=== PATIENT | female | born 1950 | race African-American/Black ===

== ENCOUNTER 2017-08-18 19:22 | Observation (INO) | payer MEDICARE, MEDICAID ==
--- OUTSIDE RECORDS SUMMARY | 2017-08-18 19:24 | XMS | Clinical Summary ---
:1950 Author Organization [facility] Address [address] [place] [address] Phone Care Team Providers Name Role Phone , Primary Care Provider Unavailable Allergies Not on File Current Medications Not on file Active Problems Not on file Social History Tobacco Use Types Packs/Day Years Used Date Never Assessed Sex Assigned at Date Recorded Not on file Last Filed Vital Signs Not on file Plan of Treatment Not on file Results Not on filefrom Last 3 Months
[2017-08-18 19:49] LABS: #Basophils 0.1 thou/uL (0.0-0.2); #Eosinphils 0.2 thou/uL (0.0-0.7); #Lymphocytes 1.7 thou/uL (1.20-3.40); #Monocytes 0.5 thou/uL (0.11-0.59); #Neutrophils 3.4 thou/uL (1.40-6.50); %Basophils 1.3 % (0.0-1.0); %Eosinophils 3.2 % (0.0-10.0); %Lymphocytes 28.9 % (21.0-51.0); %Monocytes 9.1 % (0.0-10.0); Hematocrit 41.7 % (36.0-47.0); Mean Platelet Volume 6.5 fL (7.4-10.4); Red Blood Cell (RBC) Count 4.61 mill/uL (4.20-5.40); White Blood Cell (WBC) Count 5.9 thou/uL (4.8-10.8)
[2017-08-18 20:11] LABS: ALT (SGPT) 24 U/L (8-55); AST (SGOT) 19 U/L (5-34); Alkaline Phosphatase 85 U/L (40-150); Anion Gap 13 mmol/L (10-20); BUN (Urea Nitrogen) 18 mg/dL (9.8-20.1); Bilirubin, Total 0.2 mg/dL (0.2-1.2); CK (CPK) 159 U/L (29-168); Calc. Creatinine Clearance 0 mL/min (70-130); Carbon Dioxide 25 mmol/L (23-31); Chloride 105 mmol/L (98-107); Estimated GFR-MDRD 84; Globulin 2.5 g/dL (2.4-3.5); Lipase 23 U/L (8-78); Protein, Total 6.2 g/dL (6.0-8.3)
[2017-08-18 20:14] LABS: Troponin I Less than 0.010 ng/mL (< 0.028)
--- NOTE | 2017-08-18 21:05 | RAD ---
PORTABLE AP CHEST X-RAY: 08/18/17 HISTORY: Chest pain for 1.5 hours. COMPARISON: 02/18/17 FINDINGS: The cardiac silhouette and pulmonary vasculature are within normal limits. Prominence of the cardiom ediastinal structures in the superior mediastinum which is probably related to vascular structures. This is stable from the prior study and is also stable when dating back to a study on 07/17/12. The lungs remain clear. There has been no interval change when compared to the prior exam. Mild foca l eventration right hemidiaphragm is again present. IMPRESSION: No acute cardiopulmonary process. POS: [facility]
[2017-08-18] MEDS ORDERED: Ondansetron HCl/PF 4 MG/2 ML Vial IVP PRN (22:35)
[2017-08-18] MEDS ORDERED: Ondansetron ODT 4 MG TAB SL PRN (22:35)
[2017-08-18] MEDS ORDERED: Acetaminophen 325 MG TAB PO PRN (22:35)
[2017-08-18 23:18] LABS: Troponin I Less than 0.010 ng/mL (< 0.028)
[2017-08-18 23:19] VITALS: BMI 36.4
[2017-08-19 02:47] LABS: Troponin I Less than 0.010 ng/mL (< 0.028)
[2017-08-19] MEDS ORDERED: Nitroglycerin 2% Ointment 1 INCH/1 GM Packet TOP SCH (06:00)
[2017-08-19] MEDS ORDERED: Dextrose 50% Abboject 50 ML SYRINGE IVP PRN (07:59)
[2017-08-19] MEDS ORDERED: Insulin Regular 300 UNITS/3 ML VIAL SC PRN ×2 (07:59)
[2017-08-19] MEDS ORDERED: Dextrose 5% in Water 1,000 ML IV PRN (07:59)
[2017-08-19] MEDS ORDERED: traMADol HCl 50 MG TAB PO PRN ×2 (08:00)
[2017-08-19] MEDS ORDERED: tiZANidine HCl 4 MG TAB PO PRN (08:01)
[2017-08-19] MEDS ORDERED: Ondansetron ODT 8 MG TAB PO PRN (08:04)
[2017-08-19] MEDS ORDERED: LINACLOTIDE 145 MCG PO PRN (08:09)
--- NOTE | 2017-08-19 08:52 | HP ---
CHIEF COMPLAINT: Chest pain. HISTORY OF PRESENT ILLNESS: The patient is a 67-year-old female who has substernal pressure, making her very uncomfortable. She would belch and could not get relief. It made her short-winded. When it lasted more than one and a half hours she went to the emergency room for further evaluation. Sh rabia states that she would sense palpitations with her heart as well. She states that this was also as sociated with nausea and vomiting and she did have emesis earlier in the day. She denies coughing. She did have back surgery approximately 3 months ago and continues to have low back pain since that time. She was previously hospitalized in January of this year with similar complaints of chest pain. Nuclear Med stress test was performed and it was negative so the patient was discharged. She does have some acid reflux and this pain she admits does feel better. She had 2 sprays of nitroglycerin and aspirin en route with EMS and did have some relief on arrival to the ER. Definitive evaluation for coronary artery disease is indicated since this is her second hospitalization in less than 7 mo nt for the same complaint. PAST MEDICAL HISTORY: Type 2 diabetes, dyslipidemia, hypertension, chronic low back pain, COPD, mor bid obesity, asthma, irritable bowel syndrome. PAST SURGICAL HISTORY: Includes bilateral cataract replacement, back surgery in April of this year. PSYCHIATRIC HISTORY: Psychiatrically she struggles with depression. SOCIAL HISTORY: She is a former smoker who quit more than 10 years ago. Denies alcohol use. ALLERGIES: She has allergies to ACETAMINOPHEN, CODEINE, CODEINE SULFATE, LACTOSE and is actually LA CTOSE INTOLERANT. CURRENT MEDICATIONS: On admission include gabapentin 300 mg t.i.d., VESIcare 10 mg at bedtime, Proz ac 20 mg daily, Sevelamer 6 mg at bedtime, Linzess 290 mg every day. She also takes Crestor 20 mg at bedtime, aspirin 81 mg daily, tramadol 50 mg q.4-6 h. p.r.n. pain; however, she has been intensel y seeking hydrocodone and this is being withheld, Topamax 100 mg daily, carvedilol 12.5 mg b.i.d., L asix 40 mg b.i.d. REVIEW OF SYSTEMS: GENERAL: At the time of admission constitutionally she denies fever, chills, cough. She does admit to generalized weakness. HEENT: Denies eye discharge, pain or blurred vision. ENT: Denies rhinorrhea, sore throat, sores in her mouth. CARDIOVASCULAR: She does admit to chest pressure. She admits to palpitations. She has not fainted . RESPIRATORY: Respiratory viera, she denies cough. She states there is some shortness of breath, but this is mainly associated with exertion. GASTROINTESTINAL: She has had nausea and vomiting once today. Denies constipation or diarrhea. GENITOURINARY: Denies blood in urine or stool, painful urination, although she has urinary frequenc y. MUSCULOSKELETAL: Denies any recent injuries, falls. She has chronic low back pain. SKIN: No rashes, lesions or ecchymosis. NEUROLOGIC: Her mentation is at baseline. Denies dizziness or any focal weakness or headache. ENDOCRINE: She has blood sugars that have been reasonable. No lymph kamron swelling or bruising. PSYCH: Psychiatrically her depression is at baseline remission and has no trouble with mental focus or delusional episodes. PHYSICAL EXAMINATION: VITAL SIGNS: At the time of admission showed vital signs 104/76, pulse 89, respirations 19, tempera ture 98.3. She put her pain at a 7/10 with O2 sat 95%. GENERAL: This is a morbidly obese female, alert, oriented, and cooperative. HEENT: Normocephalic and atraumatic. Pupils equal, round, and reactive to light. Extraocular musc les are intact. TMs, nares, pharynx are clear. NECK: Supple, trachea midline, no mass. CHEST: Generally diminished breath sounds, but no acute findings. HEART: Regular rate and rhythm, distant heart sounds due to obesity and body type. BREASTS: Exam deferred. GASTROINTESTINAL: Unable to appreciate hepatosplenomegaly due to obesity. Generally, nontender. GENITOURINARY: Deferred. EXTREMITIES: Without clubbing, cyanosis, or edema. Normal range of motion present. Symmetrical mu scular tone development in upper and lower extremities. SKIN: Without acute rashes or lesions. NEUROLOGIC: Cranial nerves are intact. Mental status is at baseline. Depression in remission. Ga it and cerebellar function normal with a walker. Sensory exam is intact. Deep tendon reflexes and Babinski not tested. LABORATORY AND X-RAY FINDINGS: The lab work on admission; x-ray shows no acute process. EKG shows complete right bundle branch block with possible lateral infarct versus inferior infarct. Cardiac enzymes thus far are negative. WBC 5.9, hemoglobin 13.2, hematocrit 41.7 with sodium 139, p otassium 3.5, chloride 105, CO2 25, BUN 18, creatinine 0.82 with a glucose 174. Liver functions unr emarkable. Lipase 23. ASSESSMENT: 1. Chest pain. Etiology undetermined and recurrent - the patient has multiple risk factors and has had a negative nuclear medicine stress test in January of this year. Due to ongoing issues and witho ut definitive diagnosis, I am recommending catheterization to put to rest whether there is any coron jeronimo artery disease or not. 2. Obesity. 3. Insulin-dependent diabetes. 4. Sedentary lifestyle. 5. Chronic back pain. PLAN: Cardiology consultation, serial reevaluation, consider for catheterization to definitively ru le out coronary artery disease and pursue GI etiology of pain if that catheterization is negative. Continued telemetry observation.
[2017-08-19] MEDS ORDERED: Carvedilol 6.25 MG TAB PO SCH (09:00)
[2017-08-19] MEDS ORDERED: Furosemide 40 MG TAB PO SCH (09:00)
[2017-08-19] MEDS ORDERED: TROSPIUM 20 MG TABLET PO SCH (09:00)
[2017-08-19] MEDS ORDERED: FLUoxetine HCl 20 MG CAP PO SCH (09:00)
[2017-08-19] MEDS ORDERED: Topiramate 100 MG TAB PO SCH (09:00)
[2017-08-19] MEDS ORDERED: Gabapentin 300 MG CAP PO SCH (09:00)
[2017-08-19] MEDS ORDERED: Insulin Detemir 100 UNITS/ML 30 UNITS in Pre-Filled Syringe 1 EACH SC SCH (09:00)
--- NOTE | 2017-08-19 10:06 | CON ---
DATE OF CONSULTATION: 08/19/2017 REASON FOR CONSULTATION: Atypical chest pain. PRIMARY PROVIDER: Dr. Adam Tanner HISTORY OF PRESENT ILLNESS: Ms. Nava is a pleasant 67-year-old woman whom I have seen and evaluated in the past. She has a history of pulmonary hypertension, obstructive sleep apnea who recently pre sented with chest pain. Her chest pain she described as gas around her heart. It was more upper e pigastric discomfort. No other ameliorating, exacerbating, or precipitating factors present. She w as last seen in 2016 where she underwent a noninvasive stress study on 02/18/2017, negative for isch emia. She also underwent coronary angiography and was found to have mild to moderate coronary disea se in 2014. PAST MEDICAL HISTORY: Diabetes mellitus, hyperlipidemia, hypertension, chronic low back pain, COPD, obesity. PAST SURGICAL HISTORY: Cataract replacement, back surgery, irritable bowel syndrome. SOCIAL HISTORY: No current tobacco or alcohol use. ALLERGIES: ACETAMINOPHEN, CODEINE, LACTOSE. HOME MEDICATIONS: Include Linzess, VESIcare, tramadol, aspirin, Crestor, Topamax, carvedilol, Lasix . REVIEW OF SYSTEMS: Ten point review of systems is reviewed and as above, otherwise negative. PHYSICAL EXAMINATION: VITAL SIGNS: Blood pressure 125/57, pulse 91, temperature 97.9. GENERAL: Patient is a pleasant female who is in no acute distress. The patient appears her stated a ge. NEUROLOGIC: The patient is alert and oriented times 3 with no focal neurologic deficits. HEENT: Sclerae without icterus. Mouth has moist mucous membranes with normal pallor. NECK: No JVD. Carotid upstroke brisk. No bruits bilaterally. LUNGS: Clear to auscultation with unlabored respirations. BACK: No scoliosis or kyphosis. CARDIAC: Regular rate and rhythm with normal S1 and S2. No S3 or S4 noted. No significant rubs, mu rmurs, thrills, or gallops noted throughout the precordium. PMI is not displaced. There is no para sternal heave. ABDOMEN: Soft, nontender, nondistended. No peritoneal signs present. No hepatosplenomegaly. No ab normal striae. EXTREMITIES: 2+ femoral and 2+ dorsalis pedis pulses. No cyanosis, clubbing, or edema. SKIN: No gross abnormalities. EKG: Normal sinus rhythm with right bundle branch block. PERTINENT LABS: CK and troponin negative. IMPRESSION: 1. Recurrent atypical chest pain. 2. Mild to moderate coronary artery disease. 3. Chronic obstructive pulmonary disease. RECOMMENDATIONS: At this point, I would not feel prudent proceeding with a noninvasive stress study . She just had a noninvasive stress study performed 6 months ago. I presented 2 options to Ms. Mohit camarillo. I would recommend medical therapy versus repeat coronary angiography. I have discussed the risk s and benefits of both. In addition to the risks of coronary angiography, she has deferred an angio at this time and would like to proceed with medical therapy. We will add low dose Imdur and contin ue Protonix. Given no acute changes and negative enzymes, it would be okay from my standpoint to di danita home with close outpatient followup.
[2017-08-19 12:37] VITALS: BP 114/63; TEMP 98
[2017-08-19] MEDS ORDERED: DOXEPIN 6 MG PO SCH (21:00)
[2017-08-19] MEDS ORDERED: Montelukast Sodium 10 mg Tablet PO SCH (21:00)
--- NOTE | 2017-08-21 08:26 | HP ---
CHIEF COMPLAINT: Chest pain. HISTORY OF PRESENT ILLNESS: This is a pleasant 67-year-old female who was just dismissed from the ospital 08/19/2017 after she presented with chest pain. At that time, it was recommended she underg o angiographic evaluation; however, at that time she did decline that. She presents now with the same chest pain associated with nausea, vomiting, shortness of breath and diaphoresis. She still states it is not her heart, but does admit that she does need to undergo the cath to make sure. She does have a history of nuclear stress test less than 6 months ago that was negative. She denies any PND or orthopnea. She also denies any syncopal or near syncopal episode. PAST MEDICAL HISTORY: 1. Type 2 diabetes. 2. Dyslipidemia. 3. Obesity. 4. Hypertension. 5. Chronic low back pain. 6. Chronic obstructive pulmonary disease. 7. Asthma. 8. Irritable bowel syndrome. PAST SURGICAL HISTORY: Bilateral cataract replacement, back surgery in April of this year. ALLERGIES: TYLENOL, CODEINE and LACTOSE INTOLERANT. MEDICATIONS: 1. Aspirin 81 mg day. 2. Coreg 12.5 mg b.i.d. 3. Silenor 60 mg at night. 4. Fluoxetine 40 mg daily. 5. Lasix 40 mg b.i.d. 6. Neurontin 900 mg t.i.d. 7. Insulin 30 units daily. 8. Linzess 290 mcg daily. 9. Zofran 8 mg q.6 h. p.r.n. nausea. 10. Crestor 20 mg every day. 11. VESIcare 10 mg every day. 12. Tizanidine 4 mg t.i.d. 13. Topamax 100 mg daily. 14. Tramadol 1-2 q.6 hours p.r.n. SOCIAL HISTORY: She does not smoke. She does not drink alcohol. She is a former smoker who quit 10 years ago. FAMILY HISTORY: Noncontributory. REVIEW OF SYSTEMS: GENERAL: Admits to weight gain, no weakness, fatigue, fever or chills. HEENT: No diplopia, amaurosis fugax, tinnitus, sore throat or hoarseness. CARDIOVASCULAR: See history of present illness. PULMONARY: No PE, cough, hemoptysis. GASTROINTESTINAL: Admits to constipation, no GI bleed. GENITOURINARY: No dysuria, nocturia, oliguria or polyuria. ENDOCRINE: No polyphagia, polydipsia or heat or cold intolerance. MUSCULOSKELETAL: Admits to arthralgias. No lupus or myopathy. NEUROLOGIC: No history of TIA or seizure. All systems are negative. PHYSICAL EXAMINATION: GENERAL: Pleasant female who appears to be in no acute distress. She is on oxygen. She is pain fr ee right now. She is NPO. VITAL SIGNS: Her blood pressure is 140/80, pulse 80, respirations 20. She is afebrile. NECK: Supple with no increased JVP or carotid bruit. Carotid had good upstroke with no thyromegaly . COR: Regular rate and rhythm. CHEST: Symmetrical. Clear to auscultation and percussion. ABDOMEN: Soft, nontender with normoactive bowel sounds. No bruit or organomegaly. EXTREMITIES: No edema or cyanosis. She had palpable pedal pulses. SKIN: There is no evidence of ulcers lesion, or rash. NEURO: She is awake, alert, and oriented to person, place, and time. LABORATORY: Her CBC is normal. Her CMP is normal. Cardiac enzymes are normal. Glucose is 152. ASSESSMENT: 1. Chest pain. 2. Multiple risk factors for coronary artery disease. 3. Obesity. 4. Hypertension. 5. Diabetes. 6. Hyperlipidemia. 7. Recent back surgery. 8. Constipation. PLAN: 1. The patient will be given a Dulcolax suppository now since she is n.p.o. 2. Home meds have already been resumed as well as Accu-Cheks have been ordered. 3. We will wait for Cardiology as I feel like the patient does need to have an angiographic evaluat ion in light of her risk factors and multiple admissions for chest pain.
== END 2017-08-19 13:01 | disposition home or self-care (01) ==
LOC: ERS 19:22 → 2SW 20:38
PROVIDERS: ADMIT Specialist; ATTEND Specialist
DX: R07.2 Precordial pain (principal); E11.9 Type 2 diabetes mellitus without complications; I10 Essential (primary) hypertension; M54.5 Low back pain; G89.29 Other chronic pain; J45.909 Unspecified asthma, uncomplicated; K58.9 Irritable bowel syndrome, unspecified; E73.9 Lactose intolerance, unspecified; K59.00 Constipation, unspecified; E78.5 Hyperlipidemia, unspecified; E66.01 Morbid (severe) obesity due to excess calories; K21.9 Gastro-esophageal reflux disease without esophagitis; F32.9 Major depressive disorder, single episode, unspecified; Z68.36 Body mass index [BMI] 36.0-36.9, adult; Z79.82 Long term (current) use of aspirin; Z79.4 Long term (current) use of insulin; Z79.899 Other long term (current) drug therapy; Z88.6 Allergy status to analgesic agent; Z88.5 Allergy status to narcotic agent; Z87.891 Personal history of nicotine dependence
CPT/HCPCS: 71010; 80053; 80061; 82550; 82553; 82962; 83690; 84484 ×3; 85025; 93005; 96374; 99285; G0378; 36415; 36416; A4216; J1815; J2270

== ENCOUNTER 2017-08-20 12:29 | Observation (INO) | payer MEDICARE, MEDICAID ==
--- OUTSIDE RECORDS SUMMARY | 2017-08-20 12:32 | XMS | Clinical Summary ---
:[address] [facility] Address [address] [place] [address] Phone Care Team Providers Name Role Phone [...]
[2017-08-20] MEDS ORDERED: Nitroglycerin 2% Ointment 1 INCH/1 GM Packet ONE (12:58)
--- NOTE | 2017-08-20 13:14 | RAD ---
ONE VIEW CHEST: HISTORY: Chest pain. COMPARISON: None. FINDINGS: Atherosclerosis of the aorta. Normal cardiac silhouette. The pulmonary vessels and hilum are kavitha l. No masses or consolidation. No pneumothorax or osseous abnormalities. IMPRESSION: 1. Atherosclerosis. 2. No acute cardiopulmonary process. POS: [facility]
[2017-08-20 13:23] LABS: #Eosinphils 0.1 thou/uL (0.0-0.7); #Lymphocytes 1.5 thou/uL (1.20-3.40); #Monocytes 0.5 thou/uL (0.11-0.59); #Neutrophils 5.4 thou/uL (1.40-6.50); %Eosinophils 1.8 % (0.0-10.0); %Lymphocytes 20.1 % (21.0-51.0); %Monocytes 6.7 % (0.0-10.0); Hematocrit 45.2 % (36.0-47.0); Mean Platelet Volume 6.4 fL (7.4-10.4); Red Blood Cell (RBC) Count 5.01 mill/uL (4.20-5.40); White Blood Cell (WBC) Count 7.5 thou/uL (4.8-10.8)
[2017-08-20 13:44] LABS: Anion Gap 15 mmol/L (10-20); Bilirubin, Total 0.5 mg/dL (0.2-1.2); Calcium 9.1 mg/dL (7.8-10.44); Carbon Dioxide 22 mmol/L (23-31); Chloride 102 mmol/L (98-107); Globulin 2.8 g/dL (2.4-3.5); Protein, Total 6.9 g/dL (6.0-8.3)
[2017-08-20 13:45] LABS: Alkaline Phosphatase 78 U/L (40-150)
[2017-08-20 13:46] LABS: Calc. Creatinine Clearance 0 mL/min (70-130); Estimated GFR-MDRD Greater than 90
[2017-08-20 13:47] LABS: BUN (Urea Nitrogen) 12 mg/dL (9.8-20.1)
[2017-08-20 13:48] LABS: ALT (SGPT) 20 U/L (8-55); AST (SGOT) 13 U/L (5-34)
[2017-08-20 13:49] LABS: Lipase 7 U/L (8-78)
[2017-08-20 13:51] LABS: Troponin I Less than 0.010 ng/mL (< 0.028)
[2017-08-20 14:01] LABS: CK (CPK) 103 U/L (29-168)
[2017-08-20] MEDS ORDERED: Ibuprofen 200 MG TAB ONE (14:28)
[2017-08-20 15:27] VITALS: BMI 35.2
[2017-08-20] MEDS ORDERED: Ondansetron ODT 4 MG TAB SL PRN (15:30)
[2017-08-20] MEDS ORDERED: Ondansetron HCl/PF 4 MG/2 ML Vial IVP PRN (15:30)
[2017-08-20 17:07] LABS: Troponin I Less than 0.010 ng/mL (< 0.028)
[2017-08-20] MEDS ORDERED: Insulin Regular 300 UNITS/3 ML VIAL SC PRN ×2 (17:20)
[2017-08-20] MEDS ORDERED: Dextrose 50% Abboject 50 ML SYRINGE IVP PRN (17:20)
[2017-08-20] MEDS ORDERED: Dextrose 5% in Water 1,000 ML IV PRN (17:20)
[2017-08-20] MEDS ORDERED: Ondansetron ODT 8 MG TAB PO PRN (17:33)
[2017-08-20] MEDS ORDERED: traMADol HCl 50 MG TAB PO PRN (17:35)
[2017-08-20] MEDS ORDERED: tiZANidine HCl 4 MG TAB PO PRN (17:35)
[2017-08-20] MEDS: traMADol HCl 50 MG TAB PO PRN (17:42)
[2017-08-20 19:44] LABS: Troponin I Less than 0.010 ng/mL (< 0.028)
[2017-08-20] MEDS: Carvedilol 6.25 MG TAB PO SCH (20:30)
[2017-08-20] MEDS: Gabapentin 300 MG CAP PO SCH (20:30)
[2017-08-20] MEDS: TROSPIUM 20 MG TABLET PO SCH (20:30)
[2017-08-20] MEDS ORDERED: DOXEPIN HCL 6 MG PO SCH (21:00)
[2017-08-21] MEDS: traMADol HCl 50 MG TAB PO PRN (00:58)
[2017-08-21] MEDS ORDERED: Bisacodyl 10 MG SUPP PR SCH (08:15)
[2017-08-21] MEDS: TROSPIUM 20 MG TABLET PO SCH (08:50)
[2017-08-21] MEDS: Gabapentin 300 MG CAP PO SCH (08:50)
[2017-08-21] MEDS: Carvedilol 6.25 MG TAB PO SCH (08:51)
[2017-08-21] MEDS ORDERED: LINACLOTIDE (LINZESS) 290 MCG CAPSULE PO SCH (09:00)
[2017-08-21] MEDS ORDERED: Topiramate 100 MG TAB PO SCH (09:00)
[2017-08-21] MEDS ORDERED: Insulin Detemir 100 UNITS/ML 30 UNITS in Pre-Filled Syringe 1 EACH SC SCH (09:00)
[2017-08-21] MEDS ORDERED: Furosemide 40 MG TAB PO SCH (09:00)
[2017-08-21] MEDS ORDERED: FLUoxetine HCl 20 MG CAP PO SCH (09:00)
[2017-08-21 11:31] VITALS: BP 164/91; TEMP 98.5
--- NOTE | 2017-08-21 18:16 | CON ---
DATE OF CONSULTATION: 08/21/2017 REASON FOR CONSULTATION: Nausea and vomiting. REFERRING PROVIDER: Adam Tanner M.D. HISTORY OF PRESENT ILLNESS: Ms. Nava is a very pleasant 67-year-old woman who I just saw and evalua carlos enrique recently. She presented with chest discomfort. Today, she states she has not had any chest pain. Her main complaint has been persistent nausea and vomiting. She states she is not able to keep any food down. No shortness of breath noted. No estebna phoresis or other ameliorating, exacerbating or precipitating factors present. During her last hospitalization, we discussed angiography versus medical therapy. She opted for med ical therapy. Her EKG does not show any significant EKG changes from baseline. Her troponins have all been negative. Please refer to note dated 08/19/2017. PHYSICAL EXAMINATION: GENERAL: Patient is a pleasant female who is in no acute distress. The patient appears her stated age. VITAL SIGNS: Blood pressure 110/70, pulse 80 and respirations 20. NEUROLOGIC: The patient is alert and oriented x3 with no focal neurologic deficits. HEENT: Sclerae without icterus. Mouth has moist mucous membranes with normal pallor. NECK: No JVD. Carotid upstroke brisk. No bruits bilaterally. LUNGS: Clear to auscultation with unlabored respirations. BACK: No scoliosis or kyphosis. CARDIAC: Regular rate and rhythm with normal S1 and S2. No S3 or S4 noted. No significant rubs, m urmurs, thrills, or gallops noted throughout the precordium. PMI is not displaced. There is no par asternal heave. ABDOMEN: Soft, nontender and nondistended. No peritoneal signs present. No hepatosplenomegaly. N o abnormal striae. EXTREMITIES: 2+ femoral and 2+ dorsalis pedis pulses. No cyanosis, clubbing or edema. SKIN: No gross abnormalities. PERTINENT LABS: CK and troponin as above. Serum potassium 0.3, sodium 135 and lipase 7. IMPRESSION: Persistent nausea and vomiting. RECOMMENDATIONS: I did not feel Ms. Nava is in the phase of an acute cardiac event causing her curr ent acute symptoms. After multiple times of questioning her symptoms, she states she has not had ch est pain or pressure, and has mainly persistent nausea and vomiting. At this point, we will continu e with medical therapy and observation. May consider angio on Thursday if her enzymes are positive or any other acute findings are noted.
--- NOTE | 2017-08-22 08:26 | DIS ---
FINAL DIAGNOSES: 1. Chest pain. 2. Hypertension. 3. Non-insulin dependent diabetes mellitus. 4. Noncompliance. 5. Obesity. COMPLICATIONS: None. PROCEDURES: None. CONSULTANTS. Cardiology, I believe, Dr. Kelly; however, the notes are not in the chart. HOSPITAL COURSE: This is a pleasant female with history of multiple medical problems who presented to the hospital 2 days ago with chest pain. At that time, it was recommended she undergo angiograph ic evaluation at that time; however, she did refuse. She came back to the hospital on 08/20/2017 wi th the same recurring symptoms and was admitted. MN was ruled out by serial cardiac enzymes. She a ctually told the emergency room physician and myself that she was having the same chest pain; herbie mares, when Cardiology did come by and see her, she said that she was not having chest pain. It was onl y nausea. Despite her coming in with chest pain, I did want Cardiology to undergo angiographic eval uation, but since the patient did deny that to Cardiology and stated she only nausea, it was felt th at it was not warranted at this time. The patient's hospital course was unremarkable. CBC was norm al. CMP was normal. Lipid profile normal, with an LDL of 83, triglyceride 94, cholesterol 159, HDL 67. The patient's hospital course was unremarkable. She was discharged home 08/21/2017. Controll ed fat diet. ACTIVITIES: As tolerated. DISCHARGE MEDICATIONS: 1. Linzess 290 mcg daily. 2. Aspirin 81 mg every day. 3. Topamax 100 mg. 4. Coreg 12.5 mg b.i.d. 5. Tramadol 1-2 q.6 hours p.r.n. 6. Neurontin 900 mg t.i.d. 7. Lasix 40 mg b.i.d. 8. Crestor 20 mg every day. 9. Zofran q.6 h., 8 mg p.r.n. 10. VESIcare 10 mg every day. 11. Fluoxetine 20 mg every day. 12. Insulin 30 units Trujeo q.a.m. 13. Doxepin 6 mg at night. 14. Tizanidine 4 mg t.i.d. p.r.n. 15. Singulair 10 mg every day. 16. Imdur ER 30 mg every day. FOLLOWUP: She was advised to follow with Katy in 1 week and keep appointment with Cardiology.
== END 2017-08-21 14:10 | disposition home or self-care (01) ==
LOC: ERS 12:29 → 2SW 14:26
PROVIDERS: ADMIT Specialist; ATTEND Specialist
DX: R07.9 Chest pain, unspecified (principal); I10 Essential (primary) hypertension; E11.9 Type 2 diabetes mellitus without complications; E66.9 Obesity, unspecified; I70.0 Atherosclerosis of aorta; M54.5 Low back pain; G89.29 Other chronic pain; J44.9 Chronic obstructive pulmonary disease, unspecified; K59.00 Constipation, unspecified; J45.909 Unspecified asthma, uncomplicated; K58.9 Irritable bowel syndrome, unspecified; E73.9 Lactose intolerance, unspecified; Z79.82 Long term (current) use of aspirin; Z79.4 Long term (current) use of insulin; Z79.899 Other long term (current) drug therapy; Z91.14 Patient's other noncompliance with medication regimen; Z99.81 Dependence on supplemental oxygen; Z88.6 Allergy status to analgesic agent; Z88.5 Allergy status to narcotic agent; Z98.42 Cataract extraction status, left eye; Z98.41 Cataract extraction status, right eye; Z96.1 Presence of intraocular lens; Z87.891 Personal history of nicotine dependence; Z68.35 Body mass index [BMI] 35.0-35.9, adult
CPT/HCPCS: 71010; 80053; 82550; 82553; 82962 ×2; 83690; 84484 ×2; 85025; 93005; 94760; 96360; 99285; G0378; 36415; 36416; J1815

== ENCOUNTER 2017-12-02 14:05 | Emergency (ER) | payer MEDICARE, MEDICAID ==
[2017-12-02 14:56] LABS: Bilirubin Negative (Negative); Blood, Urine Large (Negative); Clarity CLEAR (Clear); Glucose, Urine (Dipstick) Negative (Negative); Leukocyte Small (Negative); Nitrite Negative (Negative); Protein, Urine (Dipstick) Negative (Neg-Trace); Specific Gravity, Urine 1.013 (1.002-1.036); Urobilinogen 0.2 mg/dL (0.2-1.0)
[2017-12-02 14:58] LABS: Bacteria/HPF Rare-Few HPF (None Seen); Hyaline Casts/LPF 0-3 HYALINE CAST LPF (0-3 Hyaline); Pathc Cast-AUWi Flag 0.13 (0-2.49); RBC/HPF 21-50 HPF (0-3)
[2017-12-02 15:32] LABS: #Eosinphils 0.1 thou/uL (0.0-0.7); #Lymphocytes 1.2 thou/uL (1.20-3.40); #Monocytes 0.7 thou/uL (0.11-0.59); #Neutrophils 5.8 thou/uL (1.40-6.50); %Basophils 0.6 % (0.0-1.0); %Eosinophils 1.3 % (0.0-10.0); %Monocytes 8.5 % (0.0-10.0); %Neutrophils 74.6 % (42.0-75.0); Hemoglobin 13.8 g/dL (12.0-16.0); Mean Corpuscular HGB CONC 31.4 g/dL (32.0-36.0); Mean Corpuscular Hemoglobin 28.6 pg (27.0-31.0); Mean Platelet Volume 6.8 fL (7.4-10.4); Platelet Count 276 thou/uL (130-400); RBC Distribution Width 13.6 % (11.5-14.5); Red Blood Cell (RBC) Count 4.84 mill/uL (4.20-5.40); White Blood Cell (WBC) Count 7.8 thou/uL (4.8-10.8)
[2017-12-02 15:45] LABS: Anion Gap 15 mmol/L (10-20); BUN (Urea Nitrogen) 16 mg/dL (9.8-20.1); Calc. Creatinine Clearance 0 mL/min (70-130); Calcium 9.3 mg/dL (7.8-10.44); Carbon Dioxide 19 mmol/L (23-31); Chloride 110 mmol/L (98-107); Estimated GFR-MDRD 82; Glucose 108 mg/dL (80-115); Potassium 3.6 mmol/L (3.5-5.1); Sodium 140 mmol/L (136-145)
--- NOTE | 2017-12-02 16:05 | CT ---
NONCONTRAST ABDOMEN AN DPELVIC CT RENAL CALCULUS PROTOCOL: COMPARISON: 01/21/16. INDICATION: Pain. FINDINGS: Punctate bilateral nephrolithiasis is present. There is mild right hydroureteral nephrosis as a resu lt of a right UVJ calculus, which measures approximately 4 mm in diameter. There is mild surrounding soft tissue density of the right UVJ which could relate to mucosal edema/inflammation. The possibil ity of a small soft tissue mass is not entirely excluded. There is right-side perinephric fat strand ing and periureteral edema. The solid abdominal organs, bowel, lymph nodes, and regional vasculature limits assessment without IV or enteric contrast. There is a patchy density of the ventral lower ab dominal wall, right-sided, which may relate to a recent injection. Correlate clinically. There is d iffuse vascular disease. The imaged lung bases reveal no consolidation. Imaged osseous structures a re nonacute in appearance. There is stable fullness of the bilateral adrenal glands. IMPRESSION: 1. Mildly obstructing right ureterovesical junction calculus. 2. Punctate bilateral nephrolithiasis. POS: [facility]
== END 2017-12-02 19:35 | disposition home or self-care (01) ==
LOC: ERS 14:05
DX: N13.2 Hydronephrosis with renal and ureteral calculous obstruction (principal); K21.9 Gastro-esophageal reflux disease without esophagitis; E11.9 Type 2 diabetes mellitus without complications; I10 Essential (primary) hypertension; J44.9 Chronic obstructive pulmonary disease, unspecified; G89.29 Other chronic pain; F32.9 Major depressive disorder, single episode, unspecified; E78.00 Pure hypercholesterolemia, unspecified; Z79.899 Other long term (current) drug therapy; Z79.82 Long term (current) use of aspirin; Z87.891 Personal history of nicotine dependence
CPT/HCPCS: 74176; 80048; 81003; 81015; 85025; 87086; 96360

== ENCOUNTER 2018-03-10 13:23 | Outpatient (CLI) | payer MEDICARE, MEDICAID ==
--- NOTE | 2018-03-10 16:12 | RAD ---
ABDOMEN 1 VIEW: HISTORY: Renal calculi. Abdomen pain. COMPARISON: 12/02/17. FINDINGS: Gas and stool are apparent throughout the colon and rectum. Small bowel gas pattern is nonspecific. There are degenerative changes of the lumbar spine and hips. Phleboliths project over the pelvis. Calcification overlies the arterial structures. The right renal and distal ureteral calcifications o n the prior CT are not reliably demonstrated on this exam. IMPRESSION: 1. No urinary tract calcifications are reliably demonstrated. 2. Atherosclerosis. 3. Nonspecific bowel gas pattern. POS: [facility]
== END 2018-03-10 13:24 | disposition home or self-care (01) ==
LOC: RAD 13:23
PROVIDERS: ATTEND Specialist
DX: N20.0 Calculus of kidney (principal); I70.90 Unspecified atherosclerosis
CPT/HCPCS: 74018

== ENCOUNTER 2018-03-25 12:09 | Outpatient (CLI) | payer MEDICARE, OTHER | END 2018-03-25 12:10 | disposition home or self-care (01) | LOC: BICMAMMO 12:09 | PROVIDERS: ATTEND Specialist | DX: Z12.31 Encounter for screening mammogram for malignant neoplasm of breast (principal); R92.1 Mammographic calcification found on diagnostic imaging of breast | CPT/HCPCS: 77063; 77067 ==

== ENCOUNTER 2018-03-30 12:08 | Outpatient (CLI) | payer MEDICARE, MEDICAID | END 2018-03-30 12:09 | disposition home or self-care (01) | LOC: BICULT 12:08 | PROVIDERS: ATTEND Urology | DX: N20.0 Calculus of kidney (principal) | CPT/HCPCS: 76770 ==

== ENCOUNTER 2018-05-27 11:51 | Inpatient (IN) | payer MEDICARE, MEDICAID ==
[2018-05-27] MEDS ORDERED: Albuterol Sulfate 2.5 mg/0.5 ml Neb ONE (12:27)
[2018-05-27] MEDS ORDERED: Magnesium Sulfate 2 GM in Sodium Chloride 0.9% 100 ML IVPB ONE (12:30)
--- NOTE | 2018-05-27 12:31 | RAD ---
SINGLE VIEW CHEST: HISTORY: Respiratory distress and COPD. COMPARISON: 08/20/2017 FINDINGS: Single view of the chest show normal sized cardiomediastinal silhouette. There is no evidence of cons olidation, mass, or pleural effusion. The bones are unremarkable. IMPRESSION: No evidence of acute cardiopulmonary disease.0 POS: [facility]
[2018-05-27 12:51] LABS: #Basophils 0.1 thou/uL (0.0-0.2); #Eosinphils 0.2 thou/uL (0.0-0.7); #Lymphocytes 2.6 thou/uL (1.20-3.40); #Monocytes 0.4 thou/uL (0.11-0.59); #Neutrophils 2.3 thou/uL (1.40-6.50); %Lymphocytes 46.8 % (21.0-51.0); %Neutrophils 42.3 % (42.0-75.0); Mean Corpuscular HGB CONC 31.6 g/dL (32.0-36.0); Mean Corpuscular Hemoglobin 27.6 pg (27.0-31.0); Mean Corpuscular Volume 87.2 fL (78.0-98.0); Mean Platelet Volume 6.7 fL (7.4-10.4); Platelet Count 239 thou/uL (130-400); RBC Distribution Width 13.8 % (11.5-14.5); Red Blood Cell (RBC) Count 4.73 mill/uL (4.20-5.40); White Blood Cell (WBC) Count 5.5 thou/uL (4.8-10.8)
[2018-05-27 12:54] LABS: Bicarbonate (HCO3v) 16.6 mmol/L (1.0-85.0); CO2 Tension (PvCO2) 25.1 mmHg (41.0-51.0); Calcium, Ionized 1.05 mmol/L (1.12-1.32); Hemoglobin - Calc 13.8 g/dL (12.0-18.0); O2 Tension (PvO2) 190.5 mmHg (35.0-45.0); T. Carbon Dioxide 17.4 mmol/L (1.0-85.0); pH (Venous) 7.428 (7.35-7.45); vO2 Saturation-calc 99.7 % (94-98)
[2018-05-27 13:09] LABS: Anion Gap 14 mmol/L (10-20); BUN (Urea Nitrogen) 18 mg/dL (9.8-20.1); Calc. Creatinine Clearance 0 mL/min (70-130); Calcium 9.1 mg/dL (7.8-10.44); Carbon Dioxide 17 mmol/L (23-31); Chloride 113 mmol/L (98-107); Estimated GFR-MDRD Greater than 90; Glucose 94 mg/dL (80-115); Potassium 3.1 mmol/L (3.5-5.1); Sodium 141 mmol/L (136-145)
[2018-05-27] MEDS ORDERED: Albuterol Sulfate 2.5 mg/3 ml Neb ONE (13:21)
[2018-05-27 14:45] LABS: Troponin I Less than 0.010 ng/mL (< 0.028)
[2018-05-27 16:38] LABS: Base Excess -9.4 mEq/L (-2.0 to +3.0); pH (venous) 7.25 (7.32-7.43)
[2018-05-27 16:39] LABS: Calcium, Ionized 1.1 mmol/L (1.16-1.32)
[2018-05-27] MEDS ORDERED: Albuterol Sulfate 2.5 mg/3 ml Neb NEB PRN (16:48)
[2018-05-27] MEDS ORDERED: Sodium Chloride 0.9% 1,000 ML IV SCH (17:00)
[2018-05-27] MEDS ORDERED: Budesonide 0.5 MG/2 ML NEB NEB SCH (18:30)
[2018-05-27] MEDS: Albuterol Sulfate 2.5 mg/3 ml Neb NEB SCH ×2 (19:16→22:38)
[2018-05-27] MEDS ORDERED: Potassium Chloride 20 MEQ TAB PO SCH ×2 (19:30→21:00)
[2018-05-27] MEDS ORDERED: Dextrose 5% in Water 1,000 ML IV PRN (19:31)
[2018-05-27] MEDS ORDERED: Dextrose 50% Abboject 50 ML SYRINGE IVP PRN (19:31)
[2018-05-27] MEDS ORDERED: HumaLOG 300 UNITS/3 ML VIAL SC PRN (19:31)
[2018-05-27] MEDS ORDERED: Ondansetron ODT 8 MG TAB PO PRN (19:42)
[2018-05-27] MEDS ORDERED: traZODone HCl 50 MG TAB PO SCH (21:00)
[2018-05-27] MEDS: Carvedilol 6.25 MG TAB PO SCH (21:59)
[2018-05-27] MEDS: Topiramate 100 MG TAB PO SCH (22:00)
[2018-05-27] MEDS: Rosuvastatin 20 MG TAB PO SCH (22:00)
[2018-05-27] MEDS: HYDROcodone/Chlorphen Polis 5 ML UDCUP PO SCH (22:00)
[2018-05-27] MEDS: Pregabalin 50 MG CAP PO SCH (22:00)
[2018-05-27] MEDS: TROSPIUM 20 MG TABLET PO SCH (22:00)
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
[2018-05-28] MEDS: methylPREDNISolone Sod Succ/PF 125 MG/2 ML VIAL IVP SCH ×5 (00:28→23:14)
[2018-05-28] MEDS: traMADol HCl 50 MG TAB PO PRN (00:33)
[2018-05-28 04:42] LABS: Anion Gap 12 mmol/L (10-20); BUN (Urea Nitrogen) 11 mg/dL (9.8-20.1); Calc. Creatinine Clearance 114 mL/min (70-130); Calcium 8.8 mg/dL (7.8-10.44); Carbon Dioxide 19 mmol/L (23-31); Cardiac Risk 3.1 (Less than 4.5); Chloride 112 mmol/L (98-107); Cholesterol 204 mg/dl (< 200 Desired); Estimated GFR-MDRD Greater than 90; Glucose 190 mg/dL (80-115); HDL Cholesterol 66 mg/dL (>60 Neg Risk); LDL Cholesterol, Calculated 122 mg/dL; Potassium 4.3 mmol/L (3.5-5.1); Sodium 139 mmol/L (136-145); Triglycerides 80 mg/dL (Less than 150)
[2018-05-28] MEDS ORDERED: Acetylcysteine 10% 100 MG/ML 30 ml Vial NEB SCH (07:00)
[2018-05-28] MEDS ORDERED: LINZESS PO SCH (07:30)
--- NOTE | 2018-05-28 08:45 | RAD ---
CHEST 2 VIEWS: HISTORY: COPD. Dyspnea. COMPARISON: 08/15/15. FINDINGS: Cardiac silhouette upper limits of normal in size. Right hemidiaphragm remains lobulated and elevate d. Linear atelectasis/scarring at the right base is stable. No confluent airspace consolidation, pn eumothorax, or pleural fluid. IMPRESSION: Chronic-type findings are stable. No active cardiopulmonary abnormalities are demonstrated. POS: [facility]
[2018-05-28] MEDS: Aspirin 81 mg Enteric Coated Tablet PO SCH (08:53)
[2018-05-28] MEDS: Carvedilol 6.25 MG TAB PO SCH ×2 (08:53→20:52)
[2018-05-28] MEDS: Potassium Chloride 20 MEQ TAB PO SCH ×2 (08:53→16:43)
[2018-05-28] MEDS: FLUoxetine HCl 20 MG CAP PO SCH (08:54)
[2018-05-28] MEDS: Insulin Glargine 30 UNITS in Pre-Filled Syringe 1 EACH SC SCH (08:54)
[2018-05-28] MEDS: Pregabalin 50 MG CAP PO SCH ×2 (08:55→20:51)
[2018-05-28] MEDS: TROSPIUM 20 MG TABLET PO SCH ×2 (08:55→20:52)
[2018-05-28] MEDS: Montelukast Sodium 10 mg Tablet PO SCH (08:55)
[2018-05-28] MEDS: Topiramate 100 MG TAB PO SCH ×2 (08:56→20:52)
[2018-05-28] MEDS ORDERED: Prevnar 13-Val Conj/PF 0.5 ML SYRINGE IM ONE (09:00)
[2018-05-28 09:34] VITALS: BMI 37.0
[2018-05-28] MEDS: HYDROcodone/Chlorphen Polis 5 ML UDCUP PO SCH ×2 (10:09→21:14)
[2018-05-28] MEDS: Acetylcysteine 10% 100 MG/ML 30 ml Vial NEB SCH ×3 (11:32→18:54)
[2018-05-28] MEDS: Rosuvastatin 20 MG TAB PO SCH (20:51)
[2018-05-28] MEDS: traZODone HCl 50 MG TAB PO SCH (22:00)
[2018-05-29 04:58] LABS: #Lymphocytes 0.7 thou/uL (1.20-3.40); #Monocytes 0.3 thou/uL (0.11-0.59); #Neutrophils 12.4 thou/uL (1.40-6.50); %Eosinophils 0.1 % (0.0-10.0); %Lymphocytes 5.3 % (21.0-51.0); %Monocytes 2.2 % (0.0-10.0); %Neutrophils 92.4 % (42.0-75.0); Hemoglobin 12.8 g/dL (12.0-16.0); Mean Corpuscular HGB CONC 32.4 g/dL (32.0-36.0); Mean Corpuscular Hemoglobin 28.3 pg (27.0-31.0); Mean Corpuscular Volume 87.4 fL (78.0-98.0); Mean Platelet Volume 7.1 fL (7.4-10.4); Platelet Count 284 thou/uL (130-400); RBC Distribution Width 13.9 % (11.5-14.5); White Blood Cell (WBC) Count 13.4 thou/uL (4.8-10.8)
[2018-05-29 05:20] LABS: Anion Gap 13 mmol/L (10-20); BUN (Urea Nitrogen) 13 mg/dL (9.8-20.1); Calc. Creatinine Clearance 117 mL/min (70-130); Carbon Dioxide 20 mmol/L (23-31); Chloride 110 mmol/L (98-107); Estimated GFR-MDRD Greater than 90; Glucose 242 mg/dL (80-115); Potassium 4.6 mmol/L (3.5-5.1); Sodium 138 mmol/L (136-145)
[2018-05-29] MEDS: methylPREDNISolone Sod Succ/PF 125 MG/2 ML VIAL IVP SCH (05:37)
[2018-05-29] MEDS: Acetylcysteine 10% 100 MG/ML 30 ml Vial NEB SCH (07:30)
[2018-05-29] MEDS: Pregabalin 50 MG CAP PO SCH ×2 (08:30→20:42)
[2018-05-29] MEDS: Topiramate 100 MG TAB PO SCH ×2 (08:30→20:44)
[2018-05-29] MEDS: TROSPIUM 20 MG TABLET PO SCH ×2 (08:30→20:42)
[2018-05-29] MEDS: FLUoxetine HCl 20 MG CAP PO SCH (08:30)
[2018-05-29] MEDS: Carvedilol 6.25 MG TAB PO SCH ×2 (08:30→20:43)
[2018-05-29] MEDS: Montelukast Sodium 10 mg Tablet PO SCH (08:31)
[2018-05-29] MEDS: Potassium Chloride 20 MEQ TAB PO SCH ×2 (08:31→16:38)
[2018-05-29] MEDS: Aspirin 81 mg Enteric Coated Tablet PO SCH (08:31)
[2018-05-29] MEDS: Insulin Glargine 30 UNITS in Pre-Filled Syringe 1 EACH SC SCH (09:29)
[2018-05-29] MEDS: HYDROcodone/Chlorphen Polis 5 ML UDCUP PO PRN (11:37)
[2018-05-29] MEDS: HYDROcodone/Chlorphen Polis 5 ML UDCUP PO SCH (11:45)
--- NOTE | 2018-05-29 14:25 | EKG ---
Test Reason : Blood Pressure : / mmHG Vent. Rate : 100 BPM Atrial Rate : 100 BPM P-R Int : 170 ms QRS Dur : 138 ms QT Int : 406 ms P-R-T Axes : 015 260 000 degrees QTc Int : 523 ms Normal sinus rhythm Right bundle branch block Abnormal ECG Confirmed by RIKI CALDWELL ([id number]), video news editor CARMITA MCGOWAN ([id number]) on 05/29/2018 2:24:36 PM Referred By: Confirmed By:RIKI CALDWELL
[2018-05-29] MEDS: Rosuvastatin 20 MG TAB PO SCH (20:43)
[2018-05-29] MEDS: traZODone HCl 50 MG TAB PO SCH (20:46)
[2018-05-30 05:07] LABS: #Lymphocytes 0.6 thou/uL (1.20-3.40); #Monocytes 0.3 thou/uL (0.11-0.59); #Neutrophils 10.8 thou/uL (1.40-6.50); %Basophils 0.2 % (0.0-1.0); %Eosinophils 0.2 % (0.0-10.0); %Lymphocytes 5.1 % (21.0-51.0); %Monocytes 2.1 % (0.0-10.0); %Neutrophils 92.4 % (42.0-75.0); Hemoglobin 13.3 g/dL (12.0-16.0); Mean Corpuscular HGB CONC 30.7 g/dL (32.0-36.0); Mean Corpuscular Volume 87.9 fL (78.0-98.0); Mean Platelet Volume 7.2 fL (7.4-10.4); Platelet Count 290 thou/uL (130-400); RBC Distribution Width 14.1 % (11.5-14.5); Red Blood Cell (RBC) Count 4.92 mill/uL (4.20-5.40); White Blood Cell (WBC) Count 11.7 thou/uL (4.8-10.8)
[2018-05-30 05:26] LABS: Anion Gap 11 mmol/L (10-20); BUN (Urea Nitrogen) 13 mg/dL (9.8-20.1); Calc. Creatinine Clearance 112 mL/min (70-130); Calcium 9.2 mg/dL (7.8-10.44); Carbon Dioxide 24 mmol/L (23-31); Chloride 109 mmol/L (98-107); Estimated GFR-MDRD Greater than 90; Glucose 205 mg/dL (80-115); Potassium 4.8 mmol/L (3.5-5.1); Sodium 139 mmol/L (136-145)
[2018-05-30] MEDS: Potassium Chloride 20 MEQ TAB PO SCH ×2 (08:13→17:40)
[2018-05-30] MEDS: Carvedilol 6.25 MG TAB PO SCH ×2 (08:13→20:33)
[2018-05-30] MEDS: Aspirin 81 mg Enteric Coated Tablet PO SCH (08:13)
[2018-05-30] MEDS: Pregabalin 50 MG CAP PO SCH ×2 (08:14→20:33)
[2018-05-30] MEDS: FLUoxetine HCl 20 MG CAP PO SCH (08:14)
[2018-05-30] MEDS: Montelukast Sodium 10 mg Tablet PO SCH (08:14)
[2018-05-30] MEDS: Insulin Glargine 30 UNITS in Pre-Filled Syringe 1 EACH SC SCH (08:14)
[2018-05-30] MEDS: Topiramate 100 MG TAB PO SCH ×2 (08:17→20:33)
[2018-05-30] MEDS: traMADol HCl 50 MG TAB PO PRN (09:49)
[2018-05-30] MEDS: TROSPIUM 20 MG TABLET PO SCH ×2 (09:51→20:32)
[2018-05-30] MEDS: HYDROcodone/Chlorphen Polis 5 ML UDCUP PO PRN (11:01)
[2018-05-30] MEDS ORDERED: Terazosin HCl 5 MG CAP PO SCH (11:15)
[2018-05-30] MEDS ORDERED: Terazosin HCl 1 MG CAP PO SCH (11:15)
[2018-05-30] MEDS: methylPREDNISolone Sod Succ/PF 125 MG/2 ML VIAL IVP SCH ×3 (11:45→23:45)
[2018-05-30] MEDS: Rosuvastatin 20 MG TAB PO SCH (20:32)
[2018-05-30] MEDS: traZODone HCl 50 MG TAB PO SCH (20:32)
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
[2018-05-31] MEDS: methylPREDNISolone Sod Succ/PF 125 MG/2 ML VIAL IVP SCH (05:18)
--- NOTE | 2018-05-31 06:48 | PRG ---
DATE OF SERVICE: 05/31/2018 Ms. Nava says she is feeling better. She was awakened from sleep. She had her CPAP on with her nasa l pillows. She was in no distress. She still has audible diffuse wheezes. HEART: Regular rhythm. ABDOMEN: Abdomen is soft. IMPRESSION: Chronic obstructive pulmonary disease exacerbation. She sounds a little bit better to m e, but does not sound well enough to go home. I will continue current care.
[2018-05-31] MEDS ORDERED: Benzonatate 100 MG CAP PO SCH (08:00)
[2018-05-31] MEDS: Potassium Chloride 20 MEQ TAB PO SCH ×2 (09:18→16:32)
[2018-05-31] MEDS: predniSONE 20 MG TAB PO SCH ×2 (09:18→16:32)
[2018-05-31] MEDS: Aspirin 81 mg Enteric Coated Tablet PO SCH (09:18)
[2018-05-31] MEDS: FLUoxetine HCl 20 MG CAP PO SCH (09:19)
[2018-05-31] MEDS: Insulin Glargine 40 UNITS in Pre-Filled Syringe 1 EACH SC SCH (09:19)
[2018-05-31] MEDS: Pregabalin 50 MG CAP PO SCH ×2 (09:20→21:49)
[2018-05-31] MEDS: Montelukast Sodium 10 mg Tablet PO SCH (09:20)
[2018-05-31] MEDS: Carvedilol 6.25 MG TAB PO SCH ×2 (09:21→21:48)
[2018-05-31] MEDS: Topiramate 100 MG TAB PO SCH ×2 (09:21→21:50)
[2018-05-31] MEDS: TROSPIUM 20 MG TABLET PO SCH ×2 (09:21→21:50)
[2018-05-31] MEDS: Terazosin HCl 5 MG CAP PO SCH (09:21)
[2018-05-31] MEDS: Benzonatate 100 MG CAP PO SCH ×3 (11:14→23:59)
[2018-05-31] MEDS: traMADol HCl 50 MG TAB PO PRN ×2 (11:15→18:40)
[2018-05-31] MEDS: HYDROcodone/Chlorphen Polis 5 ML UDCUP PO PRN (16:31)
[2018-05-31] MEDS: Rosuvastatin 20 MG TAB PO SCH (21:49)
[2018-05-31] MEDS: traZODone HCl 50 MG TAB PO SCH (21:50)
[2018-06-01] MEDS: Benzonatate 100 MG CAP PO SCH ×2 (06:32→12:06)
[2018-06-01 07:29] VITALS: BP 134/79; TEMP 97.5
[2018-06-01] MEDS: TROSPIUM 20 MG TABLET PO SCH (08:13)
[2018-06-01] MEDS: Pregabalin 50 MG CAP PO SCH (08:13)
[2018-06-01] MEDS: Topiramate 100 MG TAB PO SCH (08:14)
[2018-06-01] MEDS: Montelukast Sodium 10 mg Tablet PO SCH (08:14)
[2018-06-01] MEDS: predniSONE 20 MG TAB PO SCH (08:14)
[2018-06-01] MEDS: Potassium Chloride 20 MEQ TAB PO SCH (08:15)
[2018-06-01] MEDS: Carvedilol 6.25 MG TAB PO SCH (08:15)
[2018-06-01] MEDS: Aspirin 81 mg Enteric Coated Tablet PO SCH (08:15)
[2018-06-01] MEDS: FLUoxetine HCl 20 MG CAP PO SCH (08:15)
[2018-06-01] MEDS: Terazosin HCl 5 MG CAP PO SCH (08:16)
[2018-06-01] MEDS: Insulin Glargine 40 UNITS in Pre-Filled Syringe 1 EACH SC SCH (09:17)
--- NOTE | 2018-06-01 10:44 | PRG ---
DATE OF SERVICE: 06/01/2018 SERVICE: Pulmonary Medicine. INTERVAL HISTORY: The patient is doing great from a respiratory standpoint. She denies any current chest pain, nausea, vomiting, fevers or chills. Otherwise, she is sleeping comfortably. She is on r oom air. Her breathing is about 80% back to baseline, but she feels that she is moving in the right direction. She still feels a rattle in her chest and she is coughing. That being said, not much is coming up. PHYSICAL EXAMINATION: VITAL SIGNS: Afebrile, pulse 52, blood pressure 134/79, respirations 16, saturation 96% on 2 liters nasal cannula. GENERAL: Patient is awake, alert, in no apparent distress. LUNGS: Excellent air entry. There is no prolonged expiratory phase. I do hear some wheezing. Rhon chi are present, but clear with cough. No crackles. HEART: Normal rate, regular. ABDOMEN: Soft, nontender and nondistended. Bowel sounds are positive. MUSCULOSKELETAL: No cyanosis or clubbing. No pitting in the bilateral lower extremities. NEUROLOGIC: Grossly nonfocal. LABORATORY DATA: Blood sugar ranges from 166-319. ASSESSMENT: 1. Chronic obstructive pulmonary disease with acute exacerbation, resolving. 2. Obstructive sleep apnea. 3. Acute hypoxic respiratory failure, resolved. DISCUSSION AND PLAN: From my perspective, she is stable for transition out of the hospital. Pulmona ry or Critical Care will continue to follow if she remains inhouse. Steroids can be discontinued aft er a total duration of 5 days (requires 2 more days).
== END 2018-06-01 12:19 | disposition home or self-care (01) | DRG 189 ==
LOC: ERS 11:51 → 2SW 14:20 → OBSVTOIN 05-28 07:33 → T4-B 05-28 09:17
PROVIDERS: ADMIT Specialist; ATTEND Specialist
DX: J96.01 Acute respiratory failure with hypoxia (principal); J44.1 Chronic obstructive pulmonary disease with (acute) exacerbation; E87.2 Acidosis; E11.9 Type 2 diabetes mellitus without complications; Z79.4 Long term (current) use of insulin; Z87.891 Personal history of nicotine dependence; Z88.8 Allergy status to other drugs, medicaments and biological substances; M54.9 Dorsalgia, unspecified; G89.29 Other chronic pain; E87.6 Hypokalemia; I10 Essential (primary) hypertension; G47.33 Obstructive sleep apnea (adult) (pediatric); E66.9 Obesity, unspecified; Z68.37 Body mass index [BMI] 37.0-37.9, adult
CPT/HCPCS: 36415; 36416; 71045; 71046; 80048; 80061; 82330; 82553; 82803; 82805; 83036; 83880; 84484; 85025; 90471; 90670; 93005; 94640; 94644; 94760; A4216; G0009; G8978-GP-CK; G8979-GP-CI; J2920; J2930; J3475; J7050; J7506; J7608; J7611; J7620; J7626

== ENCOUNTER 2018-06-06 19:26 | Emergency (ER) | payer MEDICARE, MEDICAID ==
[2018-06-06] MEDS ORDERED: Ondansetron HCl/PF 4 MG/2 ML Vial ONE (19:59)
[2018-06-06 20:14] LABS: #Lymphocytes 0.7 thou/uL (1.20-3.40); #Monocytes 0.4 thou/uL (0.11-0.59); #Neutrophils 8.6 thou/uL (1.40-6.50); %Basophils 0.1 % (0.0-1.0); %Eosinophils 0.2 % (0.0-10.0); %Lymphocytes 7.1 % (21.0-51.0); %Monocytes 4.3 % (0.0-10.0); %Neutrophils 88.2 % (42.0-75.0); Hemoglobin 13.8 g/dL (12.0-16.0); Mean Corpuscular HGB CONC 33.4 g/dL (32.0-36.0); Mean Corpuscular Hemoglobin 29.2 pg (27.0-31.0); Mean Corpuscular Volume 87.4 fL (78.0-98.0); Mean Platelet Volume 7.5 fL (7.4-10.4); Platelet Count 244 thou/uL (130-400); RBC Distribution Width 13.7 % (11.5-14.5); Red Blood Cell (RBC) Count 4.73 mill/uL (4.20-5.40); White Blood Cell (WBC) Count 9.8 thou/uL (4.8-10.8)
--- NOTE | 2018-06-06 20:18 | RAD ---
AP VIEW CHEST: 06/06/2018 HISTORY: Chest pain. COMPARISON: 05/27/2018 FINDINGS: AP view chest demonstrates ectasia of the aorta. The lungs are well aerated. No significant interva l changes seen since the previous chest radiograph from 10 days earlier. IMPRESSION: Unremarkable anterior-posterior view chest. POS: [facility]
[2018-06-06] MEDS ORDERED: Milk Of Magnesia 30 ML UDCUP ONE (20:29)
[2018-06-06] MEDS ORDERED: Lidocaine Viscous Sol 2% 15 ml UD Cup ONE ×2 (20:29→21:44)
[2018-06-06 20:37] LABS: ALT (SGPT) 72 U/L (8-55); AST (SGOT) 19 U/L (5-34); Albumin 3.8 g/dL (3.4-4.8); Alkaline Phosphatase 85 U/L (40-150); Anion Gap 15 mmol/L (10-20); BUN (Urea Nitrogen) 14 mg/dL (9.8-20.1); Bilirubin, Total 0.3 mg/dL (0.2-1.2); CK (CPK) 67 U/L (29-168); Calc. Creatinine Clearance 0 mL/min (70-130); Calcium 8.7 mg/dL (7.8-10.44); Carbon Dioxide 18 mmol/L (23-31); Chloride 105 mmol/L (98-107); Estimated GFR-MDRD 83; Globulin 2.2 g/dL (2.4-3.5); Glucose 216 mg/dL (80-115); Lipase 23 U/L (8-78); Potassium 4.4 mmol/L (3.5-5.1); Sodium 134 mmol/L (136-145)
[2018-06-06 20:41] LABS: CKMB 2.4 ng/mL (0-6.6); Troponin I Less than 0.010 ng/mL (< 0.028)
[2018-06-06] MEDS ORDERED: Nitroglycerin 0.4 MG TAB (25 Tab Bottle) ONE (21:10)
[2018-06-06] MEDS ORDERED: Famotidine/PF 20 mg/2ml Vial SLOW IVP SCH (21:15)
[2018-06-06] MEDS ORDERED: Mag-Al 1200 mg/1200 mg/30 ML UDCUP ONE (21:44)
== END 2018-06-06 22:30 | disposition home or self-care (01) ==
LOC: ERS 19:26
DX: R10.13 Epigastric pain (principal); K21.9 Gastro-esophageal reflux disease without esophagitis; E11.9 Type 2 diabetes mellitus without complications; E78.00 Pure hypercholesterolemia, unspecified; I10 Essential (primary) hypertension; G89.29 Other chronic pain; F32.9 Major depressive disorder, single episode, unspecified; J44.9 Chronic obstructive pulmonary disease, unspecified; Z87.891 Personal history of nicotine dependence; Z79.4 Long term (current) use of insulin; Z79.899 Other long term (current) drug therapy; Z79.82 Long term (current) use of aspirin
CPT/HCPCS: 36415; 71045; 80053; 82553; 83690; 84484; 85025; 93005; 96361; 96374; 96375; J2405; S0028

== ENCOUNTER 2018-07-23 22:37 | Observation (INO) | payer MEDICARE, MEDICAID ==
--- NOTE | 2018-07-23 23:04 | RAD ---
RADIOGRAPH CHEST 1 VIEW: 07/23/81 HISTORY: 68-year-old female with chest pain. FINDINGS: There is no air space density, pulmonary edema, or pneumothorax. The lateral costophrenic angles are sharp. The right hemidiaphragm is elevated. Positioning is lordotic and therefore suboptimal. IMPRESSION: 1. No acute pulmonary findings. 2. Elevated right hemidiaphragm. mary [] POS: [facility]
[2018-07-23 23:09] LABS: #Basophils 0.1 thou/uL (0.0-0.2); #Eosinphils 0.1 thou/uL (0.0-0.7); #Lymphocytes 1.4 thou/uL (1.20-3.40); #Monocytes 0.5 thou/uL (0.11-0.59); %Basophils 0.9 % (0.0-1.0); %Eosinophils 1.5 % (0.0-10.0); %Lymphocytes 23.7 % (21.0-51.0); %Monocytes 8.7 % (0.0-10.0); %Neutrophils 65.2 % (42.0-75.0); Hemoglobin 13.1 g/dL (12.0-16.0); Mean Corpuscular HGB CONC 33.1 g/dL (32.0-36.0); Mean Corpuscular Hemoglobin 28.8 pg (27.0-31.0); Mean Corpuscular Volume 87.1 fL (78.0-98.0); Mean Platelet Volume 6.7 fL (7.4-10.4); Platelet Count 254 thou/uL (130-400); RBC Distribution Width 13.9 % (11.5-14.5); Red Blood Cell (RBC) Count 4.54 mill/uL (4.20-5.40); White Blood Cell (WBC) Count 6.1 thou/uL (4.8-10.8)
[2018-07-23 23:32] LABS: ALT (SGPT) 20 U/L (8-55); AST (SGOT) 21 U/L (5-34); Alkaline Phosphatase 74 U/L (40-150); Anion Gap 11 mmol/L (10-20); BUN (Urea Nitrogen) 17 mg/dL (9.8-20.1); Bilirubin, Total 0.4 mg/dL (0.2-1.2); CK (CPK) 148 U/L (29-168); Calc. Creatinine Clearance 0 mL/min (70-130); Calcium 9.3 mg/dL (7.8-10.44); Carbon Dioxide 22 mmol/L (23-31); Chloride 113 mmol/L (98-107); Estimated GFR-MDRD 77; Globulin 2.5 g/dL (2.4-3.5); Glucose 112 mg/dL (80-115); Potassium 4.1 mmol/L (3.5-5.1); Protein, Total 6.5 g/dL (6.0-8.3); Sodium 142 mmol/L (136-145)
[2018-07-23 23:37] LABS: CKMB 3.4 ng/mL (0-6.6); Troponin I Less than 0.010 ng/mL (< 0.028)
[2018-07-24 02:18] VITALS: BMI 36.6
[2018-07-24 03:32] LABS: Troponin I Less than 0.010 ng/mL (< 0.028)
[2018-07-24 06:10] LABS: Troponin I Less than 0.010 ng/mL (< 0.028)
[2018-07-24] MEDS ORDERED: Regadenoson 0.4 MG/5 ML SYRINGE ONE (08:20)
[2018-07-24] MEDS ORDERED: Nitroglycerin 0.4 MG TAB (25 Tab Bottle) SL PRN (12:34)
[2018-07-24] MEDS ORDERED: Morphine 4 MG/ML VIAL SLOW IVP PRN (12:36)
[2018-07-24] MEDS ORDERED: Dextrose 5% in Water 1,000 ML IV PRN (12:37)
[2018-07-24] MEDS ORDERED: Dextrose 50% Abboject 50 ML SYRINGE IVP PRN (12:37)
[2018-07-24] MEDS ORDERED: Insulin Regular 300 UNITS/3 ML VIAL SC PRN (12:37)
[2018-07-24] MEDS ORDERED: traMADol HCl 50 MG TAB PO PRN (12:42)
--- NOTE | 2018-07-24 12:44 | HP ---
DATE OF OBSERVATION BEGAN: 07/24/2018 CHIEF COMPLAINT: Chest pain. HISTORY OF PRESENT ILLNESS: The patient is a 68-year-old female who 2 days prior to observation bega n to have midepigastric low wall chest pain that was a burning pressure sensation. It felt like she needed to belch, but she could not. The pain eventually went away on its own on . Then, com e Thursday morning, the pain was more intense and it worsened throughout the day. Finally, she could n ot stand and came to the emergency room on the evening of observation. The pain she describes as pre viously mentioned as an intense burning and squeezing pain. It does radiate down the left arm. It m akes her nauseated and she did throw up one time. She was diaphoretic and short of breath with it. She did an albuterol treatment thinking it would help, but she remained short of breath. Due to her multiple risk factors including hypertension, dyslipidemia, diabetes and history of smoking on top of the classical presentation, it was felt necessary to put her in and do a rule out. Her previous Car diolite stress test was approximately one year ago and did not show any ischemia. I do not think she has had an actual cardiac catheterization at least not recently and with the classical presentation, this may be necessary. She was given a nitroglycerin upon arrival to the ER. She had taken some as pirin also prior to that and the nitroglycerin relieved her pain. This could be anything from esopha geal spasms with severe reflux to classic coronary artery disease with acute coronary syndrome. PAST MEDICAL HISTORY: Significant for the aforementioned diabetes, hypertension, GERD, dyslipidemia, chronic back pain, asthma/COPD. Her diabetes is insulin-dependent and her most recent hospitalizati on prior to this was 05/27/2018 for exacerbation of COPD/asthma. Irritable bowel syndrome, insomnia, overactive bladder, allergic rhinitis and degenerative joint disease, left ankle. PAST SURGICAL HISTORY: Includes bilateral cataract replacement, back surgery. PSYCHIATRIC HISTORY: Significant for depression. SOCIAL HISTORY: She lives alone. Denies alcohol or drug use. She is a former smoker, but quit over 10 years ago. ALLERGIES: CODEINE makes her nauseated and LACTOSE and TYLENOL make her heart flutter. MEDICATIONS: Medications on observation include Flexeril 10 mg at bedtime, Linzess 290 mg. Her medi cations also include Crestor 20 mg at bedtime, Coreg 12.5 mg b.i.d., Tramadol 50 mg q.6 p.r.n. pain, trazodone 50 mg at bedtime. She takes Lyrica 100 mg b.i.d., Protonix 40 mg daily, Topamax 100 mg b.i .d., Lantus 30 units subcu daily, Prozac 20 mg p.o. daily, aspirin 81 mg daily, VESIcare 10 mg daily. She is not on Flomax, that is an error in her previous records. She also takes Zyrtec nasal spray as needed for congestion. REVIEW OF SYSTEMS: She denies any fever, chills generally and constitutionally. Eyes: There is no eye discharge or pain. Vision has not been blurred. ENT: She denies clear runny nose at this time or sore throat or voice changes. Chest: The aforementioned pain is noted and shortness of breath wh en she had the pain. No active wheezing at this time. Denies cough or sputum production. Cardiovas cular: Has the aforementioned chest pain, but denies palpitations. GI: Has the aforementioned naus ea when the pain occurred, but is not nauseated at the time nor has there been any diarrhea. Genitou rinary: Denies blood in urine or stool. Musculoskeletal: Has chronic back pain, but denies any new aches or pains aside from her left ankle, for which she received a cortisone shot in the last week. Skin: No new rashes or lesions. Neurologic: No headaches, trouble with mentation or paresthesias. Heme/Lymph: Denies any abnormal bleeding, blood clotting or edema. PHYSICAL EXAMINATION: At the time of admission, VITAL SIGNS: Blood pressure is 147/77, pulse 78, respirations 17, temperature 98.6 with O2 saturatio n at 96%. She weighs 206 pounds and is 4 feet 10. GENERAL: This is an obese, alert, cooperative female. HEENT: Normocephalic and atraumatic. Pupils equal, round and reactive to light at 2 mm each. Arcus senilis bilaterally. TMs, nares and pharynx are clear. NECK: Supple. Trachea midline. CHEST: With generally diminished breath sounds, but no overt wheezing or points of tenderness at thi s time. BREAST: Deferred. HEART: Regular rate and rhythm without murmur. ABDOMEN: Obese and unable to appreciate organomegaly. GENITOURINARY: Deferred. EXTREMITIES: Without clubbing, cyanosis or edema. Tenderness in the left ankle, but there is mild h eat present, but no other signs of edema or trauma or painful range of motion. SKIN: Shows no acute rashes or lesions. NEUROLOGIC: Cranial nerves are intact. Unable to test gait and cerebellar function at this time. M ental status is clear. Sensory exam is intact. LABORATORY DATA: Lab work thus far shows sodium 142, potassium 4.1, chloride 113, CO2 22, BUN 17, cr eatinine 0.88 with a GFR of 77, calcium 9.3. Liver functions entirely normal. Troponin I normal x3. WBC 6.1, hemoglobin 13.1, hematocrit 39.6 with platelets at 254,000. Chest x-ray unremarkable. ASSESSMENT: 1. Chest pain with classical signs of acute coronary syndrome and multiple risk factors, but just as easily could be reflux esophagitis. 2. Asthma/chronic obstructive pulmonary disease. 3. Insulin-dependent diabetes. 4. Morbid obesity. 5. Hypertension. 6. Irritable bowel syndrome. PLAN: Plan will be to keep the head of the bed up, do proton pump inhibitors, cardiac stress test an d consult Cardiology because it may be necessary to ultimately get a catheterization to rule out acut e coronary syndrome. Nitroglycerin will be provided on a p.r.n. basis and serial reevaluation will b e performed.
[2018-07-24] MEDS ORDERED: Ondansetron ODT 8 MG TAB PO PRN (12:46)
[2018-07-24 12:47] LABS: Hemoglobin A1c 6.7 % (4.0-6.0)
[2018-07-24 12:59] LABS: Cardiac Risk 2.4 (Less than 4.5); Uric Acid 5.9 mg/dL (2.6-6.0)
--- NOTE | 2018-07-24 13:23 | CON ---
DATE OF CONSULTATION: 07/24/2018 REASON FOR CONSULTATION: Chest pain. PRIMARY AUTOMATIC GLUING MACHINE OPERATOR: Zack Kelly M.D. HISTORY OF PRESENT ILLNESS: Mrs. Nava is a very pleasant 68-year-old -[place] female who com es to the hospital for chest pain. She has the same pressure that she always gets in the mid sternal area, felt like she needed to belch and she can get the air out. She has had many admissions for ch est pain. Last time she had a stress test was in 01/2017 which was normal. Before that in 2014, she actually had a heart catheterization back in 08/14/2015 for recurrent episodes of shortness of breat h and abnormal EKG. She was found to have a normal EF at 50%-55%. Her left main had a 10% ostial st enosis, LAD and circumflex were widely patent. There was a first diagonal branch that had a 50% osti al stenosis, intermediate ramus was small with no disease in the right coronary artery, had no signif icant disease either. She had no gradient on LV to aortic artery. She is currently chest pain free and has had 3 negative troponins. PAST MEDICAL HISTORY: 1. Mild to moderate coronary artery disease. 2. Type 2 diabetes. 3. Hypertension. 4. GERD. 5. Hyperlipidemia. 6. Chronic back pain. 7. Asthma and chronic obstructive pulmonary disease. 8. Irritable bowel syndrome. 9. Insomnia. 10. Overactive bladder. 11. Allergic rhinitis. 12. Degenerative joint disease. PAST SURGICAL HISTORY: 1. Bilateral cataract replacement. 2. Back surgery. 3. Heart catheterization in 07/2015. SOCIAL HISTORY: Lives alone. No alcohol, tobacco or drugs. Former smoker, quit over 10 years ago. OUTPATIENT MEDICATIONS: Include: 1. Flexeril. 2. Linzess. 3. Crestor 20 mg at bedtime. 4. Coreg 12.5 mg b.i.d. 5. Tramadol 50 mg q.6 hours p.r.n. pain. 6. Trazodone. 7. Lyrica. 8. Protonix 40 mg a day. 9. Topamax. 10. Lantus. 11. Prozac. 12. Aspirin 81 a day. 13. VESIcare. 14. Zyrtec. ALLERGIES: CODEINE gives her nausea, LACTOSE INTOLERANT give her heart fluttering. REVIEW OF SYSTEMS: A 12-point review of systems was done and is all negative unless stated in histor y of present illness. FAMILY HISTORY: Noncontributory. PHYSICAL EXAMINATION: VITAL SIGNS: Temperature 98.6, pulse 78, respiration rate 17, satting 96% on room air, blood pressur e 147/77. GENERAL: Awake, alert, oriented x3, in no distress. HEENT: Normocephalic, atraumatic. NECK: Supple. LUNGS: Have reduced breath sounds bilateral. CARDIOVASCULAR: S1, S2, distant heart sounds with no murmurs. ABDOMEN: Soft, positive bowel sounds. EXTREMITIES: Trace edema. SKIN: Warm and dry. LABORATORY WORK: Reviewed. CBC was unremarkable. Chemistry was normal except for chloride of 112, carbon dioxide 22. Troponin is undetectable x3, normal CK-MB. Albumin was 4.0, hemoglobin A1c of 6. 7. Glucose was 100. LFTs were normal. ASSESSMENT: 1. Chest pain: Atypical. 2. Mild to moderate coronary artery disease in 2015. 3. Chronic obstructive pulmonary disease/asthma. 4. Morbid obesity. PLAN: I agree with Dr. Tanner. We will do a nuclear stress test and this is negative, she should be able to be discharged home from the cardiac perspective. Knowing her coronary anatomy, I am just con cerned about that diagonal distribution. If it is an ostial diagonal lesion, this would be not geraldine ble to revascularization by stenting; however, we will see what the stress test shows, hopefully it w ill be unremarkable. Thank you for letting us participate in the care of your patient. We will follow.
[2018-07-24 17:51] LABS: Bilirubin Negative (Negative); Blood, Urine Negative (Negative); Clarity TURBID (Clear); Glucose, Urine (Dipstick) Negative (Negative); Leukocyte Small (Negative); Nitrite Negative (Negative); Protein, Urine (Dipstick) Negative (Neg-Trace); Specific Gravity, Urine 1.017 (1.002-1.036); pH, Urine 7.5 (5.0-9.0)
[2018-07-24 17:54] LABS: Bacteria/HPF Rare-Few HPF (None Seen); Hyaline Casts/LPF 0-3 HYALINE CAST LPF (0-3 Hyaline); Pathc Cast-AUWi Flag 0.29 (0-2.49); RBC/HPF 0-3 HPF (0-3); Squamous Epithelial 0-3 HPF (0-3)
[2018-07-24] MEDS: Carvedilol 6.25 MG TAB PO SCH (20:44)
[2018-07-24] MEDS: Pregabalin 50 MG CAP PO SCH (20:47)
[2018-07-24] MEDS: Topiramate 100 MG TAB PO SCH (20:49)
[2018-07-24] MEDS ORDERED: Cyclobenzaprine 10 MG TAB PO SCH (21:00)
[2018-07-24] MEDS ORDERED: traZODone HCl 50 MG TAB PO SCH (21:00)
[2018-07-24] MEDS ORDERED: Rosuvastatin 20 MG TAB PO SCH (21:00)
[2018-07-24] MEDS ORDERED: Insulin Glargine 30 UNITS in Pre-Filled Syringe 1 EACH SC SCH (21:00)
[2018-07-25] MEDS ORDERED: Benzonatate 100 MG CAP PO PRN (08:12)
[2018-07-25] MEDS ORDERED: Pantoprazole 40 MG VIAL IVP SCH (09:00)
[2018-07-25] MEDS ORDERED: LINACLOTIDE 290 MG PO SCH (09:00)
[2018-07-25] MEDS ORDERED: FLUoxetine HCl 20 MG CAP PO SCH (09:00)
[2018-07-25] MEDS ORDERED: Montelukast Sodium 10 mg Tablet PO SCH (09:00)
[2018-07-25] MEDS: Budesonide 0.5 MG/2 ML NEB NEB SCH ×2 (09:41→10:00)
[2018-07-25] MEDS: Topiramate 100 MG TAB PO SCH (11:22)
[2018-07-25] MEDS: Pregabalin 50 MG CAP PO SCH (11:22)
[2018-07-25] MEDS: Carvedilol 6.25 MG TAB PO SCH (11:23)
[2018-07-25 11:57] VITALS: BP 132/69; TEMP 98
--- NOTE | 2018-07-25 12:04 | NM ---
MYOCARDIAL PERFUSION SCAN WITH SPECT IMAGING: HISTORY: Chest pain. COPD. Dyslipidemia. Tobacco abuse. TECHNIQUE/FINDINGS: Examination is performed as a 2 day study using 27.8 mCi 99m-technetium sestamibi on the stress and 3 0.5 mCi on the resting images. This shows a fairly normal distribution of radiopharmaceutical without signs of ischemia or scar. WALL MOTION: There is symmetric contractility to the ventricle. LEFT VENTRICULAR EJECTION FRACTION: The calculated left ventricular ejection fraction is 91%. IMPRESSION: Unremarkable myocardial perfusion scan. POS: [facility]
[2018-07-25] MEDS ORDERED: Budesonide 0.5 MG/2 ML NEB NEB SCH (18:30)
--- NOTE | 2018-07-26 00:09 | DIS ---
DATE OF INITIAL OBSERVATION: 07/24/2018 DATE OF DISCHARGE FROM OBSERVATION: 07/25/2018 CHIEF COMPLAINT ON ADMISSION: Chest pain. History and physical had previously been dictated. I will resume with hospital course. HOSPITAL COURSE: The patient was transferred to an observation telemetry bed where every heart beat was monitored. Dr. Corcoran saw the patient in cardiac consultation. He felt that her chest pain was atypical, but agreed with the ordering of the Cardiolite stress test. All the patient's troponin lev els returned normal, and once the Cardiolite test returned normal as well on 07/25/2018, she was able to be discharged home. She did not experience any more chest pain while in the hospital, and rit[place] of the relief obtained with nitroglycerin, we will look for esophageal spasm as the etiology and ob tain an EGD on an outpatient basis. She already is on GERD medication, but with her habitus is unlik shahriar that it is very effective. DISCHARGE DIAGNOSES: The diagnoses at the time of discharge is: 1. Chest pain, probably gastrointestinal in origin. 2. Asthma/chronic obstructive pulmonary disease, stable. 3. Insulin-dependent diabetes, stable with an excellent hemoglobin A1c of 6.7 obtained on 07/24/2018 . 4. Dyslipidemia with excellent control on medication. The patient will be discharged to continue on her usual medication. The time required to review the chart, examine the patient and answering her questions and prepare for discharge including dictation came to 35 minutes, and she will follow up with Dr. Tanner next week after discharge to arrange GI con sultation and probable EGD for esophageal disease.
--- NOTE | 2018-07-31 21:20 | EKG ---
Test Reason : Blood Pressure : / mmHG Vent. Rate : 119 BPM Atrial Rate : 119 BPM P-R Int : 158 ms QRS Dur : 120 ms QT Int : 336 ms P-R-T Axes : 005 249 -03 degrees QTc Int : 472 ms Sinus tachycardia Right bundle branch block Possible Lateral infarct , age undetermined Abnormal ECG Confirmed by VIVIAN JOHNS DO ([id number]), design editor JUNIOR LINK ([id number]) on 07/31/2018 9:19:57 PM Referred By: Confirmed By:VIVIAN JOHNS DO
== END 2018-07-25 15:50 | disposition home or self-care (01) ==
LOC: ERS 22:37 → 2SW 07-24 00:46
PROVIDERS: ADMIT Specialist; ATTEND Specialist
DX: R07.89 Other chest pain (principal); I25.10 Atherosclerotic heart disease of native coronary artery without angina pectoris; J44.9 Chronic obstructive pulmonary disease, unspecified; E66.01 Morbid (severe) obesity due to excess calories; Z88.5 Allergy status to narcotic agent; Z88.8 Allergy status to other drugs, medicaments and biological substances; Z87.891 Personal history of nicotine dependence; Z68.36 Body mass index [BMI] 36.0-36.9, adult
CPT/HCPCS: 71045; 78452; 80053; 80061; 81001; 82550; 82553; 82962 ×2; 83036; 84484 ×3; 84550; 85025; 85652; 93005; 93017; 94640 ×2; 96374; 99285; A9500; G0378 ×2; 36415; 36416; C9113; J2785; J7620; J7626

== ENCOUNTER 2018-09-16 09:44 | Outpatient (CLI) | payer MEDICARE, MEDICAID ==
--- NOTE | 2018-09-16 12:08 | RAD ---
TWO VIEWS CHEST: History: Dyspnea. Date: 09-16-18 Comparison: 03-11-17 FINDINGS: PA and lateral views obtained and demonstrate ectasia of the aorta. There is some elevation of the ri ght hemidiaphragm. The lungs are well aerated. No evidence of acute intrathoracic abnormality is seen . No evidence of effusions, pneumonia, or pneumothorax seen. IMPRESSION: Elevated right hemidiaphragm, otherwise unremarkable two views chest. POS: [facility]
== END 2018-09-16 09:45 | disposition home or self-care (01) ==
LOC: RAD 09:44
PROVIDERS: ATTEND Internal Medicine Critical Care Medicine
DX: R06.00 Dyspnea, unspecified (principal)
CPT/HCPCS: 71046

== ENCOUNTER 2018-10-06 09:19 | Outpatient (CLI) | payer MEDICARE, MEDICAID ==
--- NOTE | 2018-10-06 11:58 | MRI ---
MRI LEFT ANKLE WITHOUT CONTRAST: INDICATIONS: History of fall two to three months ago with persistent left ankle pain, predominantly medially. COMPARISON: No radiographic or MR comparisons are available. TECHNIQUE: Multiplanar, multisequence MR images were obtained of the left ankle without IV contrast. FINDINGS: There is slight convexity to the anterior margin of the distal Achilles tendon, consistent with mild tendinosis. There is edema within the Kager's fat pad. There is prominent thickening involving the posterior tibialis tendon, consistent with severe tendinosis. There is a partial-thickness split tea r of the posterior tibialis, originating at the level of the lower posterior/distal posterior tibial plafond, extending through the level of the flexor retinaculum, with reconstitution of the tendon jus t proximal to its attachments to the navicula. The flexor digitorum longus and FHL tendons are withi n normal limits. There is mild fluid surrounding the peroneal tendon, at the level of the lateral re tinaculum. The ATFL, PTFL, calcaneofibular, deltoid, and syndesmotic ligaments are intact. NO osteo chondral lesions seen involving the talar dome. The spring ligament appears intact. The Lisfranc li gament appears intact. The sinus tarsi has a normal signal intensity. The visualized plantar fascia appears within normal limits. IMPRESSION: 1. Severe tendinosis of the posterior tibialis tendon with a partial-thickness split tear involving the tendon, from the level of the distal tibial through the level of the flexor retinaculum, with ass ociated tenosynovitis. 2. Mild Achilles tendinosis. 3. Mild peroneal tenosynovitis. 4. The intrinsic and extrinsic ligaments of the ankle appear intact. POS: LOCO
== END 2018-10-06 09:20 | disposition home or self-care (01) ==
LOC: BICMRI 09:19
PROVIDERS: ATTEND Podiatrist Foot & Ankle Surgery
DX: S93.402D Sprain of unspecified ligament of left ankle, subsequent encounter (principal); M19.072 Primary osteoarthritis, left ankle and foot; S96.812A Strain of other specified muscles and tendons at ankle and foot level, left foot, initial encounter; M67.874 Other specified disorders of tendon, left ankle and foot; M65.9 Synovitis and tenosynovitis, unspecified

== ENCOUNTER 2018-11-30 15:01 | Inpatient (IN) | payer MEDICARE, MEDICAID ==
[2018-11-30 15:15] LABS: Actual Bicarbonate (HCO3a) 20.1 mEq/L (22-28); Analyzer IN Cardio ER; Base Excess (BEa) -4.1 mEq/L (-2.0 to +3.0); CO2 Tension 34.2 mmHg (35.0-45.0); Calcium, Ionized 1.18 mmol/L (1.12-1.30); Carboxyhemoglobin (COHb) 0.2 gm% (0.0-3.0); Hemoglobin (Hb) 12.9 g/dL (12.0-16.0); O2 Tension (PaO2) 223.4 mmHg (> 80.0); Potassium - ABG Lab 3.25 mmol/L (3.70-5.30); pH, Arterial 7.39 (7.35-7.45)
[2018-11-30 15:16] LABS: Puncture Site RRA
[2018-11-30 15:24] LABS: #Basophils 0.1 thou/uL (0.0-0.2); #Eosinphils 0.2 thou/uL (0.0-0.7); #Lymphocytes 2.6 thou/uL (1.20-3.40); #Monocytes 0.6 thou/uL (0.11-0.59); #Neutrophils 2.9 thou/uL (1.40-6.50); %Basophils 1.4 % (0.0-1.0); %Eosinophils 3.9 % (0.0-10.0); %Lymphocytes 41.3 % (21.0-51.0); %Monocytes 8.6 % (0.0-10.0); %Neutrophils 44.9 % (42.0-75.0); Hemoglobin 12.9 g/dL (12.0-16.0); Mean Corpuscular HGB CONC 32.9 g/dL (32.0-36.0); Mean Corpuscular Hemoglobin 28.6 pg (27.0-31.0); Mean Platelet Volume 7.5 fL (7.4-10.4); Platelet Count 226 thou/uL (130-400); RBC Distribution Width 13.4 % (11.5-14.5); Red Blood Cell (RBC) Count 4.52 mill/uL (4.20-5.40); White Blood Cell (WBC) Count 6.4 thou/uL (4.8-10.8)
[2018-11-30 15:46] LABS: ALT (SGPT) 17 U/L (8-55); AST (SGOT) 16 U/L (5-34); Albumin 3.9 g/dL (3.4-4.8); Alkaline Phosphatase 72 U/L (40-150); Anion Gap 14 mmol/L (10-20); BUN (Urea Nitrogen) 24 mg/dL (9.8-20.1); Bilirubin, Total 0.5 mg/dL (0.2-1.2); Calc. Creatinine Clearance 0 mL/min (70-130); Calcium 8.6 mg/dL (7.8-10.44); Carbon Dioxide 18 mmol/L (23-31); Chloride 110 mmol/L (98-107); Estimated GFR-MDRD 73; Globulin 2.2 g/dL (2.4-3.5); Glucose 257 mg/dL (80-115); Potassium 3.3 mmol/L (3.5-5.1); Protein, Total 6.1 g/dL (6.0-8.3); Sodium 139 mmol/L (136-145)
[2018-11-30] MEDS ORDERED: Lorazepam 2 MG/ML VIAL ONE (16:16)
--- NOTE | 2018-11-30 17:14 | RAD ---
SINGLE VIEW OF THE CHEST: COMPARISON: 07/23/2018. HISTORY: Dyspnea. FINDINGS: Single view of the chest shows a normal sized cardiomediastinal silhouette. There is no evidence of c onsolidation, mass, or pleural effusion. The bones are unremarkable. IMPRESSION: No evidence of acute cardiopulmonary disease. POS: CET
[2018-11-30 19:16] LABS: Lactic Acid 2.3 mmol/L (0.5-2.2)
[2018-12-01] MEDS ORDERED: methylPREDNISolone Sod Succ/PF 125 MG/2 ML VIAL ONE (02:10)
[2018-12-01] MEDS ORDERED: Water For Inject, Bacteriostat 30 ML ONE (02:43)
[2018-12-01] MEDS ORDERED: methylPREDNISolone Sod Succ/PF 125 MG/2 ML VIAL IVP SCH ×2 (02:45→09:00)
[2018-12-01 03:36] VITALS: BMI 36.3
[2018-12-01] MEDS ORDERED: Dextrose 50% Abboject 50 ML SYRINGE IVP PRN (07:57)
[2018-12-01] MEDS ORDERED: Dextrose 5% in Water 1,000 ML IV PRN (07:57)
[2018-12-01] MEDS ORDERED: Insulin Regular 300 UNITS/3 ML VIAL SC PRN ×2 (07:57→08:01)
[2018-12-01] MEDS: Pregabalin 50 MG CAP PO SCH ×2 (09:56→20:19)
[2018-12-01] MEDS: Potassium Chloride 20 MEQ TAB PO SCH ×2 (09:56→17:29)
[2018-12-01] MEDS: FLUoxetine HCl 20 MG CAP PO SCH (09:56)
[2018-12-01] MEDS: Insulin Glargine 30 UNITS in Pre-Filled Syringe 1 EACH SC SCH (09:57)
[2018-12-01] MEDS: Topiramate 25 MG TAB PO SCH ×2 (09:57→20:19)
[2018-12-01] MEDS: Fluticasone Propionate Nasal Spray 16 gm Bottle NASAL SCH ×2 (09:59→20:18)
--- NOTE | 2018-12-01 11:11 | CON ---
DATE OF CONSULTATION: HISTORY OF PRESENT ILLNESS: Tatiana Nava is a 68-year-old morbidly obese female who sees Dr. Castano, admitted to the hospital under Dr. Adam Tanner with progressive respiratory failure. She presented last night. She has a CPAP machine at home, got more short of breath, coughing some, clear sputum. Denies any chest pain, chills, or sweats. In the ER, her sats were 99% on a CPAP, temperature was 98, respirations were 22, and blood pressure was 157/96. She is now on the MICU. She is coughing. She is weak. She says somewhat better. She has numerous admissions. She has severe limitation to activity. PAST MEDICAL HISTORY: COPD, asthma, sleep apnea, morbid obesity, chronic pain. PAST SURGERIES: Included back surgery, cataract surgery. SOCIAL HISTORY: Former smoker. No alcohol. ALLERGIES: CODEINE. HOME MEDICATIONS: Trazodone, tramadol, Topamax 100 twice a day, terazosin 5 mg, 10, Crestor 20, Lyrica 100, sodium 40, Naprosyn, Singulair 10, ISMO 30, Prozac 20, Symbicort, nose spray. REVIEW OF SYSTEMS: Otherwise 10 point negative. PHYSICAL EXAMINATION: VITAL SIGNS: O2 saturation is 95 to 96 on 2 L, pulse 80, respiratory rate 18, and blood pressure 130/80. CHEST: Bilateral rhonchi and crackles. CARDIAC: Normal S1, S2. No gallops. LABORATORY STUDIES: X-ray showed no acute infiltrates. White count 6,000, H and H 12 and 39, platelet count 226. On admission, pO2 was 223, pCO2 on the BiPAP. Lytes are normal. IMPRESSION: 1. Chronic obstructive pulmonary disease exacerbation, bronchitis. 2. Morbid obesity, sleep apnea, severe deconditioning. PLAN: We will continue neb treatments, steroids, and empiric antibiotics. Continue nocturnal CPAP. We will follow. Notify Dr. Castano. Consultation note, 70 minutes, 50% direct patient care. Job ID: [id number]
[2018-12-01] MEDS: Benzonatate 100 MG CAP PO PRN ×2 (13:23→20:19)
--- NOTE | 2018-12-01 13:39 | HP ---
CHIEF COMPLAINT: On admission is dyspnea with exacerbation of COPD. HISTORY OF PRESENT ILLNESS: The patient is a 68-year-old female, who states that for the past week she has had increasing shortness of breath. She normally takes breathing treatments at home and has severe asthma as well. She became worse, coughing constantly to the point she could get no rest. She started having fever as well, so she came. She has had a breathing treatment earlier and became shaky, but did not get the number of treatments she should have. In the ER, she actually arrived on BiPAP, was able to be weaned off, but before being transferred to the floor, required BiPAP again due to desaturation in the work of breathing. Her cough has been nonproductive. She did not know exactly how high her fever had gone. PAST MEDICAL HISTORY: Last hospitalization was in July of 2018 for chest pain, felt to be gastrointestinal reflux. She has a history of GERD, history of asthma, dyslipidemia, hypertension, chronic back pain. She has insulin-dependent diabetes and most recent COPD exacerbation was in May of 2018. She also has irritable bowel syndrome, overactive bladder, allergic rhinitis, degenerative joint disease, particularly of the left ankle. PAST SURGICAL HISTORY: Includes bilateral cataract replacement and back surgery. PSYCHIATRIC HISTORY: Significant for depression. SOCIAL HISTORY: Lives alone. Former smoker. Quit approximately 10 years ago. Denies drug and alcohol use. ALLERGIES: ALLERGIES ARE TO CODEINE, WHICH BASICALLY JUST MAKES HER NAUSEATED. LACTOSE AND TYLENOL MAKE HER HEART FLUTTER. REVIEW OF SYSTEMS: CONSTITUTIONAL: The patient states she has had fever, fatigue, malaise. HEENT: No discharge or drainage from her eyes. Ears, nose, and throat without sores, lesions, or drainage. CHEST: Chest with constant cough and dyspnea. HEART: Positive for palpitations, especially after neb treatments, but denies chest pain. GI: Denies nausea, vomiting, or diarrhea. : Denies dysuria, blood in urine or stool. MUSCULOSKELETAL: Has general aches and pains all the time, but no specific joints of heat or erythema. SKIN: No rashes or lesions. NEUROLOGIC: Denies headaches, blurred vision, trouble with mentation, paresthesias, anesthesias. HEMOLYTIC/LYMPH: Denies any new areas of bruising, ecchymosis, swelling, or bleeding. IMMUNOLOGIC/ALLERGIC: Significant for occasional sneezing, rhinorrhea. PHYSICAL EXAMINATION: VITAL SIGNS: At the time of admission; blood pressure 157/96, pulse 112, respirations 22, temperature 98.2, axillary pain 0/10, and O2 saturation 99% on CPAP. GENERAL: This is an arousable obese female, responsive to questions. HEENT: Normocephalic and atraumatic. Pupils are equal, round, and reactive to light with arcus senilis bilaterally. Diminished pupillary reactivity. TMs and nares are clear. Pharynx clear. NECK: Supple. CHEST: Good air movement at this time with diminished wheezing but presence of wheezing in all lobes. HEART: Regular rate and rhythm. ABDOMEN: Obese and nontender, unable to appreciate organomegaly. BREAST: Deferred. : Deferred. EXTREMITIES: Without clubbing or cyanosis. Mild 1+ edema noted. Normal range of motion present. SKIN: Without acute rashes or lesions. Neurologic: Cranial nerves are intact. Mental status is baseline and nonfocal. Sensory exam is intact. Gait and cerebellar function are untested. LABORATORY DATA: Lab work on admission shows WBC 6.4, hemoglobin 12.9, hematocrit 39.3, and platelets of 226. Sodium 139, potassium 3.3, chloride 110, CO2 of 18, BUN 24, creatinine 0.92, GFR 73, glucose 257, lactic acid went from 3.1 to 2.3. Troponins are negative. BNP is less than 10. ABG has a pH of 7.39, pCO2 of 34.2, pO2 of 223. Chest x-ray, no acute disease. ASSESSMENT: 1. Exacerbation of chronic obstructive pulmonary disease. 2. Exacerbation of asthma. 3. Insulin-dependent diabetes. 4. Morbid obesity with sedentary lifestyle. 5. Hypertension. PLAN: We will be serial neb treatments. Pulmonary consultation. IV Solu-Medrol and we will do serial re-evaluations. She will be kept in IMCU until stable to go to the floor. Job ID: [id number]
[2018-12-01] MEDS: Budesonide 0.5 MG/2 ML NEB NEB SCH (19:15)
[2018-12-01] MEDS: traMADol HCl 50 MG TAB PO PRN (20:18)
[2018-12-01] MEDS: Doxycycline 100 MG CAP PO SCH (20:19)
[2018-12-01] MEDS: Atorvastatin Calcium 40 MG TAB PO SCH (20:19)
[2018-12-01] MEDS: traZODone HCl 50 MG TAB PO SCH (20:19)
[2018-12-01] MEDS: Terazosin HCl 5 MG CAP PO SCH (20:19)
[2018-12-01] MEDS: Montelukast Sodium 10 mg Tablet PO SCH (20:20)
[2018-12-02] MEDS: LINZESS 145 MG PO SCH ×2 (01:50→10:24)
[2018-12-02 05:35] LABS: Hemoglobin A1c 6.3 % (4.0-6.0)
[2018-12-02 05:42] LABS: Anion Gap 12 mmol/L (10-20); BUN (Urea Nitrogen) 13 mg/dL (9.8-20.1); Calc. Creatinine Clearance 110 mL/min (70-130); Calcium 8.9 mg/dL (7.8-10.44); Carbon Dioxide 23 mmol/L (23-31); Cardiac Risk 2.7 (Less than 4.5); Chloride 112 mmol/L (98-107); Cholesterol 179 mg/dl (< 200 Desired); Estimated GFR-MDRD Greater than 90; Glucose 197 mg/dL (80-115); HDL Cholesterol 67 mg/dL (>60 Neg Risk); LDL Cholesterol, Calculated 97 mg/dL; Sodium 143 mmol/L (136-145); Triglycerides 73 mg/dL (Less than 150)
[2018-12-02] MEDS: Budesonide 0.5 MG/2 ML NEB NEB SCH ×2 (07:44→18:20)
[2018-12-02] MEDS ORDERED: Ondansetron PF 4 MG/2 ML Vial IVP SCH (08:30)
--- NOTE | 2018-12-02 10:00 | PRG ---
DATE OF SERVICE: 12/02/2018 SUBJECTIVE: Tatiana Nava remains in the MICU, having difficulty breathing. OBJECTIVE: VITAL SIGNS: Saturations are 97% on 2 L, respiratory rate 18, temperature 97, pulse 105, blood pressure is 140/86. CHEST: Reveals diffuse wheezing. CARDIAC: Normal S1 and S2. No gallops. ABDOMEN: No masses. LABORATORY DATA: Glucose 182. IMPRESSION: 1. Chronic obstructive pulmonary disease and bronchial asthma exacerbation. 2. Diabetes. 3. Sleep apnea. PLAN: Continue steroids. I have added magnesium. Continue neb treatments, Cornelius. Job ID: [id number]
[2018-12-02] MEDS: Topiramate 25 MG TAB PO SCH ×2 (10:16→21:21)
[2018-12-02] MEDS: FLUoxetine HCl 20 MG CAP PO SCH (10:16)
[2018-12-02] MEDS: Pregabalin 50 MG CAP PO SCH ×2 (10:16→21:20)
[2018-12-02] MEDS: Potassium Chloride 20 MEQ TAB PO SCH ×2 (10:16→16:57)
[2018-12-02] MEDS: Insulin Glargine 30 UNITS in Pre-Filled Syringe 1 EACH SC SCH (10:17)
[2018-12-02] MEDS: Doxycycline 100 MG CAP PO SCH ×2 (10:17→21:21)
[2018-12-02] MEDS: Fluticasone Propionate Nasal Spray 16 gm Bottle NASAL SCH ×2 (10:17→21:20)
[2018-12-02] MEDS: Benzonatate 100 MG CAP PO PRN ×2 (10:34→17:08)
[2018-12-02] MEDS: Mometasone/Formoterol 120 PUFF INHALER INH SCH (18:20)
[2018-12-02] MEDS: traZODone HCl 50 MG TAB PO SCH (21:20)
[2018-12-02] MEDS: Terazosin HCl 5 MG CAP PO SCH (21:20)
[2018-12-02] MEDS: Montelukast Sodium 10 mg Tablet PO SCH (21:20)
[2018-12-02] MEDS: traMADol HCl 50 MG TAB PO PRN (21:21)
[2018-12-02] MEDS: Atorvastatin Calcium 40 MG TAB PO SCH (21:21)
[2018-12-03 05:15] LABS: #Lymphocytes 0.4 thou/uL (1.20-3.40); #Monocytes 0.2 thou/uL (0.11-0.59); #Neutrophils 8.2 thou/uL (1.40-6.50); %Eosinophils 0.3 % (0.0-10.0); %Lymphocytes 4.3 % (21.0-51.0); %Monocytes 2.3 % (0.0-10.0); %Neutrophils 93.1 % (42.0-75.0); Hemoglobin 13.3 g/dL (12.0-16.0); Mean Corpuscular HGB CONC 31.9 g/dL (32.0-36.0); Mean Corpuscular Hemoglobin 27.7 pg (27.0-31.0); Mean Corpuscular Volume 86.6 fL (78.0-98.0); Mean Platelet Volume 7.6 fL (7.4-10.4); Platelet Count 261 thou/uL (130-400); RBC Distribution Width 13.4 % (11.5-14.5); White Blood Cell (WBC) Count 8.8 thou/uL (4.8-10.8)
[2018-12-03 05:33] LABS: Anion Gap 14 mmol/L (10-20); BUN (Urea Nitrogen) 16 mg/dL (9.8-20.1); Calc. Creatinine Clearance 115 mL/min (70-130); Calcium 8.9 mg/dL (7.8-10.44); Carbon Dioxide 21 mmol/L (23-31); Chloride 111 mmol/L (98-107); Estimated GFR-MDRD Greater than 90; Glucose 169 mg/dL (80-115); Potassium 4.6 mmol/L (3.5-5.1); Sodium 141 mmol/L (136-145)
[2018-12-03] MEDS: Budesonide 0.5 MG/2 ML NEB NEB SCH ×2 (07:19→19:10)
[2018-12-03] MEDS: Mometasone/Formoterol 120 PUFF INHALER INH SCH ×2 (07:44→19:11)
[2018-12-03] MEDS: Pregabalin 50 MG CAP PO SCH ×2 (09:50→20:39)
[2018-12-03] MEDS: Topiramate 25 MG TAB PO SCH ×2 (09:50→20:40)
[2018-12-03] MEDS: Potassium Chloride 20 MEQ TAB PO SCH ×2 (09:50→17:44)
[2018-12-03] MEDS: Doxycycline 100 MG CAP PO SCH ×2 (09:50→21:51)
[2018-12-03] MEDS: guaiFENesin ER 600 MG TAB PO SCH ×2 (09:50→20:37)
[2018-12-03] MEDS: FLUoxetine HCl 20 MG CAP PO SCH (09:50)
[2018-12-03] MEDS: Fluticasone Propionate Nasal Spray 16 gm Bottle NASAL SCH ×2 (09:51→21:00)
[2018-12-03] MEDS: LINZESS 145 MG PO SCH (09:51)
[2018-12-03] MEDS: Insulin Glargine 30 UNITS in Pre-Filled Syringe 1 EACH SC SCH (09:52)
--- NOTE | 2018-12-03 11:00 | PRG ---
DATE OF SERVICE: 12/03/2018 SUBJECTIVE: This morning, still having difficulty breathing, though she is somewhat better. OBJECTIVE: VITAL SIGNS: Saturations are 96% on 2 L, temperature 96, pulse 95, and blood pressure 146/102. CHEST: Diffuse wheezing. CARDIAC: Normal S1 and S2. No gallops. ABDOMEN: No masses. IMPRESSION: 1. Chronic obstructive pulmonary disease exacerbation, bronchitis. 2. Sleep apnea. PLAN: Continue steroids, neb treatments, and supportive care. We will follow. Continue nocturnal CPAP Job ID: [id number]
[2018-12-03] MEDS: Benzonatate 100 MG CAP PO PRN (17:50)
[2018-12-03] MEDS: traZODone HCl 50 MG TAB PO SCH (20:37)
[2018-12-03] MEDS: Montelukast Sodium 10 mg Tablet PO SCH (20:38)
[2018-12-03] MEDS: Atorvastatin Calcium 40 MG TAB PO SCH (20:38)
[2018-12-03] MEDS: Terazosin HCl 5 MG CAP PO SCH (21:50)
[2018-12-04] MEDS: traMADol HCl 50 MG TAB PO PRN ×3 (00:03→20:57)
[2018-12-04] MEDS: Benzonatate 100 MG CAP PO PRN ×3 (00:04→20:56)
[2018-12-04] MEDS: Budesonide 0.5 MG/2 ML NEB NEB SCH ×2 (05:39→19:13)
[2018-12-04] MEDS: Mometasone/Formoterol 120 PUFF INHALER INH SCH ×2 (05:44→19:26)
[2018-12-04 07:01] LABS: #Lymphocytes 0.5 thou/uL (1.20-3.40); #Monocytes 0.2 thou/uL (0.11-0.59); #Neutrophils 6.1 thou/uL (1.40-6.50); %Eosinophils 0.3 % (0.0-10.0); %Lymphocytes 7.8 % (21.0-51.0); %Monocytes 3.2 % (0.0-10.0); %Neutrophils 88.7 % (42.0-75.0); Hemoglobin 13.6 g/dL (12.0-16.0); Mean Corpuscular HGB CONC 32.1 g/dL (32.0-36.0); Mean Corpuscular Hemoglobin 27.9 pg (27.0-31.0); Mean Corpuscular Volume 86.9 fL (78.0-98.0); Mean Platelet Volume 7.5 fL (7.4-10.4); Platelet Count 251 thou/uL (130-400); RBC Distribution Width 13.4 % (11.5-14.5); Red Blood Cell (RBC) Count 4.87 mill/uL (4.20-5.40); White Blood Cell (WBC) Count 6.9 thou/uL (4.8-10.8)
[2018-12-04 07:21] LABS: Anion Gap 11 mmol/L (10-20); BUN (Urea Nitrogen) 17 mg/dL (9.8-20.1); Calc. Creatinine Clearance 111 mL/min (70-130); Calcium 8.9 mg/dL (7.8-10.44); Carbon Dioxide 24 mmol/L (23-31); Chloride 109 mmol/L (98-107); Estimated GFR-MDRD Greater than 90; Glucose 162 mg/dL (80-115); Potassium 4.5 mmol/L (3.5-5.1); Sodium 139 mmol/L (136-145)
[2018-12-04] MEDS: FLUoxetine HCl 20 MG CAP PO SCH (08:39)
[2018-12-04] MEDS: Topiramate 25 MG TAB PO SCH ×2 (08:39→20:57)
[2018-12-04] MEDS: guaiFENesin ER 600 MG TAB PO SCH ×2 (08:40→20:56)
[2018-12-04] MEDS: Pregabalin 50 MG CAP PO SCH ×2 (08:40→20:58)
[2018-12-04] MEDS: Potassium Chloride 20 MEQ TAB PO SCH ×2 (08:40→18:01)
[2018-12-04] MEDS: predniSONE 20 MG TAB PO SCH ×2 (08:42→18:01)
[2018-12-04] MEDS: Insulin Glargine 30 UNITS in Pre-Filled Syringe 1 EACH SC SCH (09:34)
[2018-12-04] MEDS: Fluticasone Propionate Nasal Spray 16 gm Bottle NASAL SCH ×2 (09:56→20:56)
[2018-12-04] MEDS: Doxycycline 100 MG CAP PO SCH ×2 (11:04→21:12)
[2018-12-04] MEDS: LINZESS 145 MG PO SCH (11:35)
--- NOTE | 2018-12-04 12:19 | PRG ---
DATE OF SERVICE: 12/04/2018 SUBJECTIVE: This morning, she is better, less short of breath, less cough, and less wheezing. OBJECTIVE: VITAL SIGNS: Saturations are 95% on 2 L, temperature 97, pulse 89, and blood pressure 150/90. LUNGS: Wheezing is markedly improved, occasional wheeze. CARDIAC: Sinus tach. ABDOMEN: Soft. LABORATORY DATA: Labs unremarkable. IMPRESSION: Chronic obstructive pulmonary disease, asthma exacerbation, bronchitis, obesity, and sleep apnea. PLAN: Continue neb treatments and steroids. We will notify Dr. Castano. Job ID: [id number]
[2018-12-04] MEDS ORDERED: Cepastat Lozenges 1 LOZ PO PRN (14:04)
[2018-12-04] MEDS ORDERED: Guaifenesin DM 100-10/5 ML UDCUP PO PRN (18:42)
[2018-12-04] MEDS ORDERED: traMADol HCl 50 MG TAB PO PRN (18:42)
[2018-12-04] MEDS: Montelukast Sodium 10 mg Tablet PO SCH (20:56)
[2018-12-04] MEDS: Atorvastatin Calcium 40 MG TAB PO SCH (20:56)
[2018-12-04] MEDS: traZODone HCl 50 MG TAB PO SCH (20:57)
[2018-12-04] MEDS: Terazosin HCl 5 MG CAP PO SCH (21:12)
[2018-12-05] MEDS: Budesonide 0.5 MG/2 ML NEB NEB SCH ×2 (05:37→18:34)
[2018-12-05] MEDS: Mometasone/Formoterol 120 PUFF INHALER INH SCH ×2 (05:43→18:53)
[2018-12-05 07:50] LABS: #Lymphocytes 0.8 thou/uL (1.20-3.40); #Monocytes 0.6 thou/uL (0.11-0.59); #Neutrophils 5.1 thou/uL (1.40-6.50); %Basophils 0.3 % (0.0-1.0); %Eosinophils 0.4 % (0.0-10.0); %Lymphocytes 12.4 % (21.0-51.0); %Monocytes 8.5 % (0.0-10.0); %Neutrophils 78.3 % (42.0-75.0); Hemoglobin 13.7 g/dL (12.0-16.0); Mean Corpuscular HGB CONC 32.5 g/dL (32.0-36.0); Mean Corpuscular Hemoglobin 27.9 pg (27.0-31.0); Mean Corpuscular Volume 85.8 fL (78.0-98.0); Mean Platelet Volume 7.4 fL (7.4-10.4); Platelet Count 251 thou/uL (130-400); RBC Distribution Width 13.1 % (11.5-14.5); White Blood Cell (WBC) Count 6.5 thou/uL (4.8-10.8)
[2018-12-05] MEDS: Pregabalin 50 MG CAP PO SCH ×2 (09:33→19:43)
[2018-12-05] MEDS: Doxycycline 100 MG CAP PO SCH ×2 (09:33→21:22)
[2018-12-05] MEDS: guaiFENesin ER 600 MG TAB PO SCH ×2 (09:35→19:44)
[2018-12-05] MEDS: FLUoxetine HCl 20 MG CAP PO SCH (09:35)
[2018-12-05] MEDS: Potassium Chloride 20 MEQ TAB PO SCH ×2 (09:36→17:16)
[2018-12-05] MEDS: Benzonatate 100 MG CAP PO PRN (09:36)
[2018-12-05] MEDS: predniSONE 20 MG TAB PO SCH ×2 (09:36→17:14)
[2018-12-05] MEDS: Topiramate 25 MG TAB PO SCH ×2 (09:37→19:45)
[2018-12-05] MEDS: Insulin Glargine 30 UNITS in Pre-Filled Syringe 1 EACH SC SCH ×2 (09:39→14:17)
[2018-12-05] MEDS: Fluticasone Propionate Nasal Spray 16 gm Bottle NASAL SCH ×2 (09:40→19:48)
[2018-12-05] MEDS: LINZESS 145 MG PO SCH (11:57)
--- NOTE | 2018-12-05 12:06 | PRG ---
DATE OF SERVICE: 12/05/2018 SUBJECTIVE: Tatiana Love this morning, she is on a BiPAP, but she says she is better. Wheezing has improved. OBJECTIVE: Sats are 93% on the BiPAP. Temperature 96, pulse 75, respirations 15, blood pressure 140/78. CHEST: Minimal wheezing. CARDIAC: Normal S1 and S2. No gallops. ABDOMEN: No masses. IMPRESSION: 1. Chronic obstructive pulmonary disease, asthma exacerbation, improved. 2. Sleep apnea. 3. Morbid obesity. 4. Prednisone, neb treatments, supportive care. Job ID: [id number]
[2018-12-05] MEDS ORDERED: Promethazine HCl 6.25 MG/5 ML Syrup PO PRN ×2 (16:59→23:00)
[2018-12-05] MEDS ORDERED: Promethazine HCl 6.25 MG/5 ML Syrup PO SCH (17:00)
[2018-12-05] MEDS ORDERED: metFORMIN 500 MG TAB PO SCH (17:00)
[2018-12-05] MEDS: Montelukast Sodium 10 mg Tablet PO SCH (19:43)
[2018-12-05] MEDS: traZODone HCl 50 MG TAB PO SCH (19:44)
[2018-12-05] MEDS: Atorvastatin Calcium 40 MG TAB PO SCH (19:44)
[2018-12-05] MEDS ORDERED: Alogliptin 6.25 MG TAB PO SCH (21:00)
[2018-12-05] MEDS: Terazosin HCl 5 MG CAP PO SCH (21:22)
[2018-12-06 06:54] LABS: #Eosinphils 0.1 thou/uL (0.0-0.7); #Lymphocytes 0.5 thou/uL (1.20-3.40); #Monocytes 0.4 thou/uL (0.11-0.59); #Neutrophils 6.3 thou/uL (1.40-6.50); %Eosinophils 0.7 % (0.0-10.0); %Lymphocytes 6.5 % (21.0-51.0); %Monocytes 5.1 % (0.0-10.0); %Neutrophils 87.7 % (42.0-75.0); Hemoglobin 14.3 g/dL (12.0-16.0); Mean Corpuscular HGB CONC 31.7 g/dL (32.0-36.0); Mean Corpuscular Hemoglobin 27.6 pg (27.0-31.0); Mean Corpuscular Volume 87.3 fL (78.0-98.0); Mean Platelet Volume 8.7 fL (7.4-10.4); Platelet Count 234 thou/uL (130-400); RBC Distribution Width 13.4 % (11.5-14.5); Red Blood Cell (RBC) Count 5.18 mill/uL (4.20-5.40); White Blood Cell (WBC) Count 7.2 thou/uL (4.8-10.8)
[2018-12-06] MEDS: Budesonide 0.5 MG/2 ML NEB NEB SCH ×2 (07:27→18:23)
[2018-12-06] MEDS: Mometasone/Formoterol 120 PUFF INHALER INH SCH ×2 (07:37→18:24)
[2018-12-06] MEDS: Doxycycline 100 MG CAP PO SCH (08:34)
[2018-12-06] MEDS: Alogliptin 25 MG TAB PO SCH (08:35)
[2018-12-06] MEDS: Pregabalin 50 MG CAP PO SCH ×2 (08:35→21:07)
[2018-12-06] MEDS: guaiFENesin ER 600 MG TAB PO SCH ×2 (08:35→21:06)
[2018-12-06] MEDS: Potassium Chloride 20 MEQ TAB PO SCH ×2 (08:37→15:18)
[2018-12-06] MEDS: Topiramate 25 MG TAB PO SCH ×2 (08:37→21:08)
[2018-12-06] MEDS: predniSONE 20 MG TAB PO SCH ×2 (08:37→15:17)
[2018-12-06] MEDS: FLUoxetine HCl 20 MG CAP PO SCH (08:37)
[2018-12-06] MEDS: Fluticasone Propionate Nasal Spray 16 gm Bottle NASAL SCH ×2 (08:38→21:12)
[2018-12-06] MEDS: LINZESS 145 MG PO SCH (08:39)
[2018-12-06] MEDS: Acetaminophen 325 MG TAB PO SCH ×3 (13:26→21:08)
[2018-12-06] MEDS: Benzonatate 100 MG CAP PO PRN (15:17)
--- NOTE | 2018-12-06 20:56 | PRG ---
DATE OF SERVICE: 12/06/2018 SUBJECTIVE: She is not feeling better. She is not hungry. She says she is nauseated. OBJECTIVE: VITAL SIGNS: She is afebrile. Heart rate is 100, respiratory rate 18, oximetry is 100% on 3 L, and blood pressure is 123/82. LUNGS: Remarkable for faint wheezes. HEART: Regular rhythm. ABDOMEN: Soft. LABORATORY DATA: White count 7.2, hemoglobin 14.3, and platelets 234. No electrolytes done since 12. They were essentially normal other than a chloride of 109. IMPRESSION: 1. Chronic obstructive pulmonary disease exacerbation with reactive airway, slowly improving. 2. Sleep apnea. 3. Obesity. 4. Deconditioning. 5. Persistent nausea. 6. History of reflux disease. 7. History of lipid disorder. 8. Hypertension. 9. Diabetes. I reviewed her medications. The doxycycline may be contributing to her nausea, so I will discontinue this. I do not find any other medicines commonly associated with nausea and she is not in adrenal crisis given that she is getting 20 mg of prednisone twice a day. I will be happy to follow the other physicians caring for her. Job ID: [id number]
[2018-12-06] MEDS: Atorvastatin Calcium 40 MG TAB PO SCH (21:09)
[2018-12-06] MEDS: traZODone HCl 50 MG TAB PO SCH (21:09)
[2018-12-06] MEDS: Montelukast Sodium 10 mg Tablet PO SCH (21:09)
[2018-12-06] MEDS: Terazosin HCl 5 MG CAP PO SCH (21:10)
[2018-12-07] MEDS: traMADol HCl 50 MG TAB PO PRN ×2 (00:20→17:34)
[2018-12-07] MEDS ORDERED: Zolpidem Tartrate 5 MG TAB PO SCH (04:15)
[2018-12-07] MEDS: Benzonatate 100 MG CAP PO PRN ×2 (04:26→11:06)
[2018-12-07] MEDS: predniSONE 20 MG TAB PO SCH ×2 (08:22→16:23)
[2018-12-07] MEDS: Potassium Chloride 20 MEQ TAB PO SCH ×2 (08:22→16:23)
[2018-12-07] MEDS: Alogliptin 25 MG TAB PO SCH (08:22)
[2018-12-07] MEDS: FLUoxetine HCl 20 MG CAP PO SCH (08:23)
[2018-12-07] MEDS: guaiFENesin ER 600 MG TAB PO SCH ×2 (08:23→20:17)
[2018-12-07] MEDS: Pregabalin 50 MG CAP PO SCH ×2 (08:24→20:15)
[2018-12-07] MEDS: Topiramate 25 MG TAB PO SCH ×2 (08:24→20:15)
[2018-12-07] MEDS: Fluticasone Propionate Nasal Spray 16 gm Bottle NASAL SCH ×2 (08:25→20:17)
[2018-12-07] MEDS: Acetaminophen 325 MG TAB PO SCH ×4 (08:25→20:12)
[2018-12-07] MEDS: LINZESS 145 MG PO SCH (08:25)
[2018-12-07] MEDS: Budesonide 0.5 MG/2 ML NEB NEB SCH ×2 (08:52→19:07)
[2018-12-07] MEDS: Mometasone/Formoterol 120 PUFF INHALER INH SCH ×2 (08:53→19:08)
--- NOTE | 2018-12-07 10:03 | PRG ---
DATE OF SERVICE: 12/07/2018 Sleep study was reviewed from 2014, did show that she needed 15 cm of water pressure, so her settings will be adjusted to 15/10 on BiPAP. Job ID: [id number]
--- NOTE | 2018-12-07 10:59 | PRG ---
DATE OF SERVICE: 12/07/2018 Ms. Nava had received Ambien at 4 a.m. She was on BiPAP. Her settings were 10/5. Her actual tidal volumes were only 250 mL, so her inspiratory pressure has been increased to 15. She is not wheezing. Heart, regular rhythm. Abdomen is soft. IMPRESSION: 1. Chronic obstructive pulmonary disease. 2. Deconditioning. 3. Sleep apnea. 4. Obesity. PLAN: Continue with BiPAP when she is asleep. We will increase her pressure settings. Job ID: [id number]
--- NOTE | 2018-12-07 14:10 | PQF ---
OVI GAUTHIER THOMAS MD [id number] CLINICAL DOCUMENTATION IMPROVEMENT CLARIFICATION FORM: ICD-10 Updated PLEASE DO AN ADDENDUM TO THE PROGRESS NOTE WITH ANY DOCUMENTATION UPDATES OR ADDITIONS AND CARRY THROUGH TO DC SUMMARY. THANK YOU. DATE: 12/07/2018 ATTN: DR. ARTHUR Please exercise your independent, professional judgment in responding to the clarification form. Clinical indicators are provided on the bottom of this form for your review Please check appropriate box(s): [ ] Acute Respiratory Failure: [ ] with Hypoxia[ ] with Hypercapnia [ ] Acute On Chronic Respiratory Failure: [ ] with Hypoxia [ ] with Hypercapnia [ ] Acute Respiratory Failure due to: (etiology) [ ] ARDS (Acute Respiratory Distress Syndrome) [ ] Chronic Respiratory Failure only [ ] with Hypoxia [ ] with Hypercapnia [ ] Hypoxia [ ] Other diagnosis [ ] Unable to determine In addition, please specify: Present on Admission (POA): [ ] Yes [ ] No [ ] Unable to determine For continuity of documentation, please document condition throughout progress notes and discharge summary. Thank You. CLINICAL INDICATORS - SIGNS / SYMPTOMS / LABS 12/01-ER/NN: PATIENT APPEARS IN RESPIRATORY DISTRESS. ONSET THIS MORNING ACUTE SHOB. BREATH SOUNDS WITH WHEEZING, AUDIBLY ANTERIORLY, POSTERIORALY, DIFFUSELY. DEEP, LABORED, DYSPNEIC RESPIRATORY EFFORT. CONVERSES IN SINGLE WORDS. ARRIVED ON CPAP-PLACED ON BIPAP. BARKY LOOSE PRODUCTIVE COUGH. 12/01-NN: WEARS CPAP AT NIGHT. HX COPD. 12/01-ER/NN: SLIGHTLY LABORED, BIPAP IN PLACE, WHEEZES THROUGHOUT. DIMINISHED BLL. 12/01-NN: O2 SAT 99% WITH BIPAP IN PLACE. RESP EVEN AND UNLABORED. 12/01-ER PHYSICIAN DIAGNOSIS INCLUDES - DYSPNEA RISK FACTORS COPD exacerbation / Asthma Wears CPAP at night TREATMENTS: Oxygen Monitoring of oxygenation status Mechanical ventilation / BiPAP Respiratory treatments Pulmonary Consult (This form is maintained as a part of the permanent medical record) 2014 [employer]. All Rights Reserved Honey Cabrera RN, CDIS [email or web address] [phone] Acute on chronic respiratory failure with hypoxia MTDD
[2018-12-07] MEDS: Terazosin HCl 5 MG CAP PO SCH (20:15)
[2018-12-07] MEDS: traZODone HCl 50 MG TAB PO SCH (20:15)
[2018-12-07] MEDS: Atorvastatin Calcium 40 MG TAB PO SCH (20:17)
[2018-12-07] MEDS: Montelukast Sodium 10 mg Tablet PO SCH (20:17)
[2018-12-08] MEDS ORDERED: Zolpidem Tartrate 5 MG TAB PO SCH ×2 (01:45→20:15)
[2018-12-08] MEDS: Budesonide 0.5 MG/2 ML NEB NEB SCH ×2 (06:39→19:33)
[2018-12-08 07:18] LABS: #Eosinphils 0.1 thou/uL (0.0-0.7); #Lymphocytes 0.8 thou/uL (1.20-3.40); #Monocytes 0.6 thou/uL (0.11-0.59); #Neutrophils 7.4 thou/uL (1.40-6.50); %Basophils 0.1 % (0.0-1.0); %Eosinophils 0.6 % (0.0-10.0); %Lymphocytes 8.5 % (21.0-51.0); %Monocytes 7.2 % (0.0-10.0); %Neutrophils 83.6 % (42.0-75.0); Mean Corpuscular HGB CONC 31.9 g/dL (32.0-36.0); Mean Corpuscular Hemoglobin 27.7 pg (27.0-31.0); Mean Corpuscular Volume 86.8 fL (78.0-98.0); Mean Platelet Volume 7.7 fL (7.4-10.4); Platelet Count 240 thou/uL (130-400); RBC Distribution Width 13.4 % (11.5-14.5); Red Blood Cell (RBC) Count 5.05 mill/uL (4.20-5.40); White Blood Cell (WBC) Count 8.9 thou/uL (4.8-10.8)
[2018-12-08 07:33] LABS: Anion Gap 13 mmol/L (10-20); BUN (Urea Nitrogen) 17 mg/dL (9.8-20.1); Calc. Creatinine Clearance 120 mL/min (70-130); Calcium 9.1 mg/dL (7.8-10.44); Carbon Dioxide 22 mmol/L (23-31); Chloride 108 mmol/L (98-107); Estimated GFR-MDRD Greater than 90; Glucose 95 mg/dL (80-115); Potassium 4.1 mmol/L (3.5-5.1); Sodium 139 mmol/L (136-145)
[2018-12-08] MEDS: Pregabalin 50 MG CAP PO SCH ×2 (08:22→21:02)
[2018-12-08] MEDS: Alogliptin 25 MG TAB PO SCH (08:23)
[2018-12-08] MEDS: predniSONE 20 MG TAB PO SCH ×2 (08:23→17:56)
[2018-12-08] MEDS: FLUoxetine HCl 20 MG CAP PO SCH (08:23)
[2018-12-08] MEDS: Potassium Chloride 20 MEQ TAB PO SCH ×2 (08:23→17:56)
[2018-12-08] MEDS: Fluticasone Propionate Nasal Spray 16 gm Bottle NASAL SCH ×2 (08:24→21:03)
[2018-12-08] MEDS: Topiramate 25 MG TAB PO SCH ×2 (08:24→21:02)
[2018-12-08] MEDS: Acetaminophen 325 MG TAB PO SCH ×4 (08:30→21:03)
[2018-12-08] MEDS: Mometasone/Formoterol 120 PUFF INHALER INH SCH ×2 (10:18→20:11)
[2018-12-08] MEDS: guaiFENesin ER 600 MG TAB PO SCH ×2 (11:36→21:02)
[2018-12-08] MEDS: LINZESS 145 MG PO SCH (15:56)
--- NOTE | 2018-12-08 17:20 | PRG ---
DATE OF SERVICE: 12/08/2018 SUBJECTIVE: Ms. Nava was very upset when I rounded on her today. She was crying and tearful the whole time. She accused the healthcare providers of kicking her out of the hospital before she was ready to go. I have explained to her that she can stay. She denies being more short of breath. Her main complaint is her being upset about her inability to ambulate and live independently. She still has severe pain in her ankle. I again reviewed the MRI findings from last fall. I have asked Orthopedic Surgery to see her to see if there is something making to help with her pain or make sure we did not miss something with the MRI. Since she is not wheezing, I have switched her nebulized treatments to Brovana and budesonide twice a day. She is still having severe coughing paroxysms, but she says that her pain is keeping her awake. I have switched her Tessalon Perles from p.r.n. to three times a day. I have also placed her on a low-dose fentanyl patch to see if this helps with pain control for now. She will clearly need to go into a nursing home environment to get her strength back. Hopefully, she can become ambulatory and independent again. Job ID: [id number]
--- NOTE | 2018-12-08 18:19 | RAD ---
TWO VIEW LEFT ANKLE: 12/08/18 INDICATION: Medial malleolar pain. FINDINGS: There is no fracture or dislocation identified. There is a punctate density of the soft tissues just distal to the medial malleolus, nonspecific. No obvious soft tissue swelling. IMPRESSION: No acute osseous abnormalities. Punctate density of the medial ankle soft tissues, nonspecific. POS: ANNABEL
[2018-12-08] MEDS: Arformoterol 15 MCG/2 ML NEB NEB SCH (19:30)
[2018-12-08] MEDS: Atorvastatin Calcium 40 MG TAB PO SCH (21:02)
[2018-12-08] MEDS: Montelukast Sodium 10 mg Tablet PO SCH (21:02)
[2018-12-08] MEDS: traZODone HCl 50 MG TAB PO SCH (21:02)
[2018-12-08] MEDS: Benzonatate 100 MG CAP PO SCH (21:02)
[2018-12-08] MEDS: Terazosin HCl 5 MG CAP PO SCH (21:05)
--- NOTE | 2018-12-08 22:14 | CON ---
DATE OF CONSULTATION: CHIEF COMPLAINT: Left ankle pain. HISTORY OF PRESENT ILLNESS: Ms. Nava is a 68-year-old female who has been in the hospital for approximately one week for a COPD exacerbation. She is improving now with her lungs. She has had great difficulty mobilizing, however because of chronic left ankle pain. She has had an approximately 3-month history of medial ankle pain. She has seen Dr. Carol Becker multiple times for this. She has had injections as well as orthotics and a boot ordered. She has tried these with limited relief. She was sent for MRI 2 months ago and was found to have an extensive posterior tibialis tendon tear. She has a prescription for a custom AFO from [facility], but she has not yet been able to receive this. Her ankle is limiting her ability to mobilize because of pain. No new or acute injuries. Three months ago, she did fall and this caused her pain. She reports most of her pain is directly over the medial malleolus today. PAST MEDICAL HISTORY: Positive for COPD with recent exacerbation, asthma, sleep apnea, and obesity. PAST SURGICAL HISTORY: Lumbar back surgery and cataract surgery. SOCIAL HISTORY: The patient is a former smoker. No active smoking. No tobacco or drug use. ALLERGIES: TO CODEINE. REVIEW OF SYSTEMS: Positive for left medial ankle pain. Otherwise negative 10-point review of systems currently. IMAGES: MRI of the left ankle is reviewed dated 10/06/2018. This demonstrated extensive posterior tibialis tendinitis with tendon tear. There was also peroneal tendon fluid. No acute bony abnormality at that time. X-rays are not currently available. PHYSICAL EXAMINATION: VITAL SIGNS: Temperature is 97.6, pulse is 113, respiratory rate is 18, oxygen saturation is 95%, blood pressure is 117/74. GENERAL: She is lying supine, alert, oriented, talkative, no apparent distress. RESPIRATORY: Breathing comfortably. ABDOMEN: Soft, nontender, and nondistended. MUSCULOSKELETAL: The patient's left ankle has tenderness directly over the medial malleolus. She does not have significant tenderness over the posterior tibialis tendon. There is no significant pain with dorsiflexion or stretch of the posterior tibialis tendon. Her pain is replicated simply by palpation of the medial malleolus. No lateral pain. She has a maintained arch of the foot. Neurovascularly intact. Warm and well-perfused foot. IMPRESSION: Left ankle posterior tibialis tendon tear with tendinitis and medial malleolar bony pain. PLAN: At this point, I would like to obtain x-rays of the ankle to ensure that she has not developed a stress fracture of the medial malleolus as her pain is centered more on this than the posterior tibialis tendon. I will also order a boot for comfort. I think she will feel better if she stays in the boot most of the time to protect her ankle. She can have it off for showers and hygiene. She has already had injections and other treatment through Podiatry, so I will not repeat these. I do think she would benefit from obtaining her custom AFO from [facility] when she is an outpatient. We will follow up with the x-rays. Job ID: [id number]
[2018-12-09] MEDS: traMADol HCl 50 MG TAB PO PRN ×2 (07:00→13:21)
[2018-12-09] MEDS: Arformoterol 15 MCG/2 ML NEB NEB SCH ×2 (07:53→19:54)
[2018-12-09] MEDS: Budesonide 0.5 MG/2 ML NEB NEB SCH ×2 (07:55→19:51)
[2018-12-09] MEDS: Mometasone/Formoterol 120 PUFF INHALER INH SCH ×2 (08:20→19:54)
[2018-12-09] MEDS: Pregabalin 50 MG CAP PO SCH ×2 (09:21→20:48)
[2018-12-09] MEDS: Benzonatate 100 MG CAP PO SCH ×3 (09:21→20:48)
[2018-12-09] MEDS: Potassium Chloride 20 MEQ TAB PO SCH ×2 (09:21→16:02)
[2018-12-09] MEDS: FLUoxetine HCl 20 MG CAP PO SCH (09:22)
[2018-12-09] MEDS: Alogliptin 25 MG TAB PO SCH (09:22)
[2018-12-09] MEDS: Topiramate 25 MG TAB PO SCH ×2 (09:22→20:47)
[2018-12-09] MEDS: guaiFENesin ER 600 MG TAB PO SCH ×2 (09:22→20:48)
[2018-12-09] MEDS: predniSONE 20 MG TAB PO SCH (09:22)
[2018-12-09] MEDS: Fluticasone Propionate Nasal Spray 16 gm Bottle NASAL SCH ×2 (09:23→20:49)
[2018-12-09] MEDS: Acetaminophen 325 MG TAB PO SCH ×4 (09:23→19:39)
[2018-12-09] MEDS: LINZESS 145 MG PO SCH (09:23)
--- NOTE | 2018-12-09 10:09 | PRG ---
DATE OF SERVICE: 12/09/2018 SUBJECTIVE: Ms. Nava had no pulmonary complaints this morning. She still says she is having some pain, but her pain is better. She is tearful about going to rehab and not going directly to home, but I believe at this point in time, she is not capable to take care of herself. OBJECTIVE: VITAL SIGNS: She is afebrile, heart rate 71, respiratory rate 20, oximetry is 93, blood pressure 137/90. LUNGS: Clear. She is not wheezing. HEART: Regular rhythm. ABDOMEN: Soft. LABORATORY DATA: No new lab or other blood glucoses. IMPRESSION: 1. Chronic obstructive pulmonary disease/reactive airways, clinically stable. 2. Status post fall with an ankle injury with a left ankle posterior tibialis tendon tear with tendinitis. Dr. Damon recommended ankle films to rule out a stress fracture. Reviewed ankle film report. No fracture was seen. A punctate density in the medial ankle soft tissue was seen, it is unclear to me what this represents. Her mood and her deconditioning are the biggest factors affecting her at this point in time. I will cut her prednisone back to just 20 mg a day. This hopefully will help with her mood. I see no reason to keep her on higher dose of prednisone based on her exam at this point in time. Job ID: [id number]
[2018-12-09] MEDS ORDERED: Zolpidem Tartrate 5 MG TAB PO SCH (20:00)
[2018-12-09] MEDS: Atorvastatin Calcium 40 MG TAB PO SCH (20:47)
[2018-12-09] MEDS: Montelukast Sodium 10 mg Tablet PO SCH (20:48)
[2018-12-09] MEDS: traZODone HCl 50 MG TAB PO SCH (20:51)
[2018-12-09] MEDS: Terazosin HCl 5 MG CAP PO SCH (20:51)
[2018-12-10] MEDS: Arformoterol 15 MCG/2 ML NEB NEB SCH ×2 (06:33→18:17)
[2018-12-10] MEDS: Budesonide 0.5 MG/2 ML NEB NEB SCH ×2 (06:39→18:15)
[2018-12-10] MEDS: Mometasone/Formoterol 120 PUFF INHALER INH SCH ×2 (07:03→18:18)
[2018-12-10] MEDS: Benzonatate 100 MG CAP PO SCH ×3 (08:11→20:50)
[2018-12-10] MEDS: FLUoxetine HCl 20 MG CAP PO SCH (08:11)
[2018-12-10] MEDS: guaiFENesin ER 600 MG TAB PO SCH ×2 (08:11→20:51)
[2018-12-10] MEDS: Alogliptin 25 MG TAB PO SCH (08:11)
[2018-12-10] MEDS: Potassium Chloride 20 MEQ TAB PO SCH ×2 (08:11→16:43)
[2018-12-10] MEDS: Pregabalin 50 MG CAP PO SCH ×2 (08:12→20:51)
[2018-12-10] MEDS: Acetaminophen 325 MG TAB PO SCH ×4 (08:12→20:50)
[2018-12-10] MEDS: predniSONE 20 MG TAB PO SCH (08:12)
[2018-12-10] MEDS: Topiramate 25 MG TAB PO SCH ×2 (08:12→20:53)
[2018-12-10] MEDS: Fluticasone Propionate Nasal Spray 16 gm Bottle NASAL SCH ×2 (08:13→20:51)
[2018-12-10] MEDS: LINZESS 145 MG PO SCH (08:17)
--- NOTE | 2018-12-10 17:26 | PRG ---
DATE OF SERVICE: 12/10/2018 SUBJECTIVE: Tatiana Nava says she feels better today. She is in a better mood as well. She actually stood today but is quite unsteady on her feet. OBJECTIVE: VITAL SIGNS: She is afebrile, heart rate 90, respiratory rate 20, oximetry is 91, and blood pressure 103/65. LUNGS: Clear. HEART: Regular rhythm. S1 and S2 normal. ABDOMEN: Soft and nontender. IMPRESSION: 1. Chronic obstructive pulmonary disease exacerbation, resolved. 2. Deconditioning after posterior tibialis tendon tear with tendinitis. PLAN: 1. Continue physical therapy. 2. She is stable on 20 mg a day of prednisone and if she gets into rehab, this could be cut to 10 mg a day. Job ID: [id number]
[2018-12-10] MEDS: Atorvastatin Calcium 40 MG TAB PO SCH (20:50)
[2018-12-10] MEDS: Montelukast Sodium 10 mg Tablet PO SCH (20:51)
[2018-12-10] MEDS: Terazosin HCl 5 MG CAP PO SCH (20:53)
[2018-12-10] MEDS: traZODone HCl 50 MG TAB PO SCH (20:54)
[2018-12-11] MEDS: Arformoterol 15 MCG/2 ML NEB NEB SCH ×2 (07:58→18:24)
[2018-12-11] MEDS: Budesonide 0.5 MG/2 ML NEB NEB SCH ×2 (08:04→18:22)
[2018-12-11] MEDS: Mometasone/Formoterol 120 PUFF INHALER INH SCH ×2 (08:21→18:24)
[2018-12-11] MEDS: Topiramate 25 MG TAB PO SCH ×2 (08:37→20:45)
[2018-12-11] MEDS: Potassium Chloride 20 MEQ TAB PO SCH ×2 (08:37→16:59)
[2018-12-11] MEDS: Pregabalin 50 MG CAP PO SCH ×2 (08:37→20:44)
[2018-12-11] MEDS: Benzonatate 100 MG CAP PO SCH ×3 (08:37→20:42)
[2018-12-11] MEDS: Alogliptin 25 MG TAB PO SCH (08:37)
[2018-12-11] MEDS: FLUoxetine HCl 20 MG CAP PO SCH (08:38)
[2018-12-11] MEDS: Acetaminophen 325 MG TAB PO SCH ×4 (08:38→20:41)
[2018-12-11] MEDS: predniSONE 20 MG TAB PO SCH (08:38)
[2018-12-11] MEDS: Enoxaparin Sodium 40 MG/0.4 ML SYRINGE SC SCH (08:39)
[2018-12-11] MEDS ORDERED: Hydrocortisone/Pramoxine (Proctofoam HC) 10 GM BOX PR PRN (08:39)
[2018-12-11] MEDS: Fluticasone Propionate Nasal Spray 16 gm Bottle NASAL SCH ×2 (08:39→20:43)
[2018-12-11] MEDS: LINZESS 145 MG PO SCH (08:41)
[2018-12-11] MEDS: guaiFENesin ER 600 MG TAB PO SCH ×2 (08:43→20:43)
[2018-12-11] MEDS: Atorvastatin Calcium 40 MG TAB PO SCH (20:42)
[2018-12-11] MEDS: Montelukast Sodium 10 mg Tablet PO SCH (20:43)
[2018-12-11] MEDS: Terazosin HCl 5 MG CAP PO SCH (20:45)
[2018-12-11] MEDS: traZODone HCl 50 MG TAB PO SCH (20:45)
[2018-12-11] MEDS: Zolpidem Tartrate 5 MG TAB PO SCH (20:46)
--- NOTE | 2018-12-11 21:35 | PRG ---
DATE OF SERVICE: 12/11/2018 SUBJECTIVE: Ms. Nava did well overnight. Her only complaint is pain with sleep. She is still on fentanyl patch 12 mcg. We will increase this to 25 mcg. Hopefully, this will help. She is allergic to codeine, so adding Tylenol No. 3 is not a great option. She is not somnolent with the fentanyl, so I think she will tolerate increasing the dosing. I have encouraged her to get out of bed. She does not want to get out of bed because she says her boots to mobilize her ankle is too heavy. Her lungs remain clear. COPD is not really an issue, it is just deconditioning and ankle pain. Job ID: [id number]
[2018-12-12] MEDS: Arformoterol 15 MCG/2 ML NEB NEB SCH ×2 (08:00→18:13)
[2018-12-12] MEDS: Budesonide 0.5 MG/2 ML NEB NEB SCH ×2 (08:05→18:10)
[2018-12-12] MEDS: Mometasone/Formoterol 120 PUFF INHALER INH SCH ×2 (08:13→18:13)
[2018-12-12] MEDS: Pregabalin 50 MG CAP PO SCH ×2 (08:18→21:09)
[2018-12-12] MEDS: Enoxaparin Sodium 40 MG/0.4 ML SYRINGE SC SCH (08:18)
[2018-12-12] MEDS: Potassium Chloride 20 MEQ TAB PO SCH ×2 (08:19→16:45)
[2018-12-12] MEDS: guaiFENesin ER 600 MG TAB PO SCH ×2 (08:19→21:08)
[2018-12-12] MEDS: FLUoxetine HCl 20 MG CAP PO SCH (08:19)
[2018-12-12] MEDS: LINZESS 145 MG PO SCH (08:20)
[2018-12-12] MEDS: predniSONE 20 MG TAB PO SCH (08:20)
[2018-12-12] MEDS: Fluticasone Propionate Nasal Spray 16 gm Bottle NASAL SCH ×2 (08:20→21:08)
[2018-12-12] MEDS: Topiramate 25 MG TAB PO SCH ×2 (08:20→21:10)
[2018-12-12] MEDS: Alogliptin 25 MG TAB PO SCH (08:20)
[2018-12-12] MEDS: Acetaminophen 325 MG TAB PO SCH ×4 (08:24→21:07)
[2018-12-12] MEDS: Benzonatate 100 MG CAP PO SCH ×3 (08:24→21:08)
[2018-12-12] MEDS: traMADol HCl 50 MG TAB PO SCH ×3 (11:23→23:03)
--- NOTE | 2018-12-12 19:16 | PRG ---
DATE OF SERVICE: 12/12/2018 Ms. Nava has no new complaints. Her lungs are clear. We are waiting for placement. She says the increase in Fentanyl led to improvement in her pain and she was able to sleep last night. She is eating better. She has not set up much today. She has not ambulated. Her COPD is stable at this time. She can have a slow prednisone taper. Continue with nebulizer treatments. She probably should be switched to budesonide twice a day when she gets the lower doses of steroids as a maintenance in addition to ipratropium and albuterol. I will see her as needed in followup in the office. We will sign off. Job ID: [id number]
[2018-12-12] MEDS: Atorvastatin Calcium 40 MG TAB PO SCH (21:07)
[2018-12-12] MEDS: Montelukast Sodium 10 mg Tablet PO SCH (21:09)
[2018-12-12] MEDS: Terazosin HCl 5 MG CAP PO SCH (21:10)
[2018-12-12] MEDS: traZODone HCl 50 MG TAB PO SCH (21:11)
[2018-12-12] MEDS: Zolpidem Tartrate 5 MG TAB PO SCH (21:11)
[2018-12-13] MEDS: traMADol HCl 50 MG TAB PO SCH ×4 (05:06→21:00)
[2018-12-13] MEDS: Arformoterol 15 MCG/2 ML NEB NEB SCH ×2 (06:12→21:22)
[2018-12-13] MEDS: Budesonide 0.5 MG/2 ML NEB NEB SCH ×2 (06:16→21:24)
[2018-12-13] MEDS: Mometasone/Formoterol 120 PUFF INHALER INH SCH ×2 (06:17→21:25)
[2018-12-13] MEDS: Enoxaparin Sodium 40 MG/0.4 ML SYRINGE SC SCH (08:32)
[2018-12-13] MEDS: Acetaminophen 325 MG TAB PO SCH ×4 (08:32→20:59)
[2018-12-13] MEDS: Potassium Chloride 20 MEQ TAB PO SCH ×2 (08:34→17:36)
[2018-12-13] MEDS: Topiramate 25 MG TAB PO SCH ×2 (08:34→21:02)
[2018-12-13] MEDS: Pregabalin 50 MG CAP PO SCH ×2 (08:34→21:01)
[2018-12-13] MEDS: guaiFENesin ER 600 MG TAB PO SCH ×2 (08:35→21:03)
[2018-12-13] MEDS: FLUoxetine HCl 20 MG CAP PO SCH (08:36)
[2018-12-13] MEDS: Fluticasone Propionate Nasal Spray 16 gm Bottle NASAL SCH ×2 (08:36→21:03)
[2018-12-13] MEDS: Alogliptin 25 MG TAB PO SCH (08:36)
[2018-12-13] MEDS: predniSONE 20 MG TAB PO SCH (08:36)
[2018-12-13] MEDS: LINZESS 145 MG PO SCH (08:37)
[2018-12-13] MEDS: Benzonatate 100 MG CAP PO SCH ×3 (10:18→21:02)
[2018-12-13] MEDS: Ondansetron PF 4 MG/2 ML Vial IVP PRN (13:44)
[2018-12-13] MEDS: traZODone HCl 50 MG TAB PO SCH (21:02)
[2018-12-13] MEDS: Montelukast Sodium 10 mg Tablet PO SCH (21:03)
[2018-12-13] MEDS: Zolpidem Tartrate 5 MG TAB PO SCH (21:03)
[2018-12-13] MEDS: Atorvastatin Calcium 40 MG TAB PO SCH (21:03)
[2018-12-13] MEDS: Terazosin HCl 5 MG CAP PO SCH (21:04)
[2018-12-14] MEDS: traMADol HCl 50 MG TAB PO SCH ×3 (05:38→15:15)
[2018-12-14] MEDS: Budesonide 0.5 MG/2 ML NEB NEB SCH ×2 (07:24→18:50)
[2018-12-14] MEDS: Arformoterol 15 MCG/2 ML NEB NEB SCH ×2 (07:25→18:46)
[2018-12-14] MEDS: Mometasone/Formoterol 120 PUFF INHALER INH SCH ×2 (07:32→19:05)
[2018-12-14] MEDS: Benzonatate 100 MG CAP PO SCH ×3 (08:11→20:22)
[2018-12-14] MEDS: Alogliptin 25 MG TAB PO SCH (08:11)
[2018-12-14] MEDS: Potassium Chloride 20 MEQ TAB PO SCH ×2 (08:11→15:15)
[2018-12-14] MEDS: Pregabalin 50 MG CAP PO SCH ×2 (08:12→20:21)
[2018-12-14] MEDS: FLUoxetine HCl 20 MG CAP PO SCH (08:13)
[2018-12-14] MEDS: Topiramate 25 MG TAB PO SCH ×2 (08:13→20:22)
[2018-12-14] MEDS: guaiFENesin ER 600 MG TAB PO SCH ×2 (08:13→20:23)
[2018-12-14] MEDS: predniSONE 20 MG TAB PO SCH (08:14)
[2018-12-14] MEDS: LINZESS 145 MG PO SCH (08:14)
[2018-12-14] MEDS: Enoxaparin Sodium 40 MG/0.4 ML SYRINGE SC SCH (08:14)
[2018-12-14] MEDS: Fluticasone Propionate Nasal Spray 16 gm Bottle NASAL SCH ×2 (08:15→20:25)
[2018-12-14] MEDS: Acetaminophen 325 MG TAB PO SCH ×4 (08:15→20:25)
[2018-12-14] MEDS: Ondansetron PF 4 MG/2 ML Vial IVP PRN (10:30)
[2018-12-14] MEDS: Hydrocortisone Acetate 25 MG Suppository PR SCH ×4 (10:31→20:26)
[2018-12-14] MEDS: Zolpidem Tartrate 5 MG TAB PO SCH (20:21)
[2018-12-14] MEDS: Montelukast Sodium 10 mg Tablet PO SCH (20:22)
[2018-12-14] MEDS: traZODone HCl 50 MG TAB PO SCH (20:22)
[2018-12-14] MEDS: Atorvastatin Calcium 40 MG TAB PO SCH (20:22)
[2018-12-14] MEDS: Terazosin HCl 5 MG CAP PO SCH (20:22)
[2018-12-15] MEDS: traMADol HCl 50 MG TAB PO SCH ×4 (00:28→18:17)
[2018-12-15] MEDS: Budesonide 0.5 MG/2 ML NEB NEB SCH ×2 (06:57→19:15)
[2018-12-15] MEDS: Arformoterol 15 MCG/2 ML NEB NEB SCH ×2 (06:58→19:15)
[2018-12-15] MEDS: Mometasone/Formoterol 120 PUFF INHALER INH SCH ×2 (07:02→19:36)
[2018-12-15] MEDS: Topiramate 25 MG TAB PO SCH ×2 (09:46→20:20)
[2018-12-15] MEDS: Alogliptin 25 MG TAB PO SCH (09:46)
[2018-12-15] MEDS: Enoxaparin Sodium 40 MG/0.4 ML SYRINGE SC SCH (09:46)
[2018-12-15] MEDS: FLUoxetine HCl 20 MG CAP PO SCH (09:47)
[2018-12-15] MEDS: Potassium Chloride 20 MEQ TAB PO SCH ×3 (09:47→15:56)
[2018-12-15] MEDS: Benzonatate 100 MG CAP PO SCH ×3 (09:47→20:18)
[2018-12-15] MEDS: guaiFENesin ER 600 MG TAB PO SCH ×2 (09:47→20:18)
[2018-12-15] MEDS: LINZESS 145 MG PO SCH (09:48)
[2018-12-15] MEDS: Fluticasone Propionate Nasal Spray 16 gm Bottle NASAL SCH ×2 (09:48→20:22)
[2018-12-15] MEDS: predniSONE 20 MG TAB PO SCH (09:48)
[2018-12-15] MEDS: Hydrocortisone Acetate 25 MG Suppository PR SCH ×5 (09:51→20:22)
[2018-12-15] MEDS: Acetaminophen 325 MG TAB PO SCH ×4 (09:51→20:34)
[2018-12-15] MEDS: Pregabalin 50 MG CAP PO SCH ×2 (09:52→20:20)
[2018-12-15] MEDS: Atorvastatin Calcium 40 MG TAB PO SCH (20:18)
[2018-12-15] MEDS: Montelukast Sodium 10 mg Tablet PO SCH (20:18)
[2018-12-15] MEDS: traZODone HCl 50 MG TAB PO SCH (20:20)
[2018-12-15] MEDS: Zolpidem Tartrate 5 MG TAB PO SCH (20:20)
[2018-12-15] MEDS: Terazosin HCl 5 MG CAP PO SCH (20:22)
[2018-12-16] MEDS: traMADol HCl 50 MG TAB PO SCH ×2 (00:41→06:09)
[2018-12-16] MEDS: Acetaminophen 325 MG TAB PO SCH (07:34)
[2018-12-16] MEDS: LINZESS 145 MG PO SCH (07:35)
[2018-12-16] MEDS: Budesonide 0.5 MG/2 ML NEB NEB SCH (08:17)
[2018-12-16] MEDS: Arformoterol 15 MCG/2 ML NEB NEB SCH (08:18)
[2018-12-16] MEDS: Mometasone/Formoterol 120 PUFF INHALER INH SCH (08:18)
[2018-12-16] MEDS: Topiramate 25 MG TAB PO SCH (09:13)
[2018-12-16] MEDS: Alogliptin 25 MG TAB PO SCH (09:13)
[2018-12-16] MEDS: FLUoxetine HCl 20 MG CAP PO SCH (09:14)
[2018-12-16] MEDS: predniSONE 20 MG TAB PO SCH (09:14)
[2018-12-16] MEDS: guaiFENesin ER 600 MG TAB PO SCH (09:14)
[2018-12-16] MEDS: Benzonatate 100 MG CAP PO SCH (09:14)
[2018-12-16] MEDS: Enoxaparin Sodium 40 MG/0.4 ML SYRINGE SC SCH (09:15)
[2018-12-16] MEDS: Fluticasone Propionate Nasal Spray 16 gm Bottle NASAL SCH (09:16)
[2018-12-16] MEDS: Potassium Chloride 20 MEQ TAB PO SCH (09:19)
[2018-12-16] MEDS: Pregabalin 50 MG CAP PO SCH (09:20)
[2018-12-16] MEDS: Hydrocortisone Acetate 25 MG Suppository PR SCH (09:21)
[2018-12-16 11:15] VITALS: BP 97/65; TEMP 98.1
--- NOTE | 2018-12-17 13:54 | PQF ---
OVI GAUTHIER MICHAEL E MD [id number] CLINICAL DOCUMENTATION IMPROVEMENT CLARIFICATION FORM: ICD-10 Updated PLEASE DO AN ADDENDUM TO THE PROGRESS NOTE WITH ANY DOCUMENTATION UPDATES OR ADDITIONS AND CARRY THROUGH TO DC SUMMARY. THANK YOU. DATE: 12/07/2018 ATTN: DR. PATRICK Please exercise your independent, professional judgment in responding to the clarification form. Clinical indicators are provided on the bottom of this form for your review Please check appropriate box(s): [ ] Acute Respiratory Failure: [ ] with Hypoxia[ ] with Hypercapnia [ x ] Acute On Chronic Respiratory Failure: [ ] with Hypoxia [ ] with Hypercapnia [ ] Chronic Respiratory Failure only [ ] with Hypoxia [ ] with Hypercapnia [ ] Hypoxia [ x ] Other diagnosis : exacerbation of asthma and COPD [ ] Unable to determine For continuity of documentation, please document condition throughout progress notes and discharge summary. Thank You. CLINICAL INDICATORS - SIGNS / SYMPTOMS / LABS 12/01-ER/NN: PATIENT APPEARS IN RESPIRATORY DISTRESS. ONSET THIS MORNING ACUTE SHOB. BREATH SOUNDS WITH WHEEZING, AUDIBLY ANTERIORLY, POSTERIORALY, DIFFUSELY. DEEP, LABORED, DYSPNEIC RESPIRATORY EFFORT. CONVERSES IN SINGLE WORDS. ARRIVED ON CPAP-PLACED ON BIPAP. BARKY LOOSE PRODUCTIVE COUGH. 12/01-NN: WEARS CPAP AT NIGHT. HX COPD. 12/01-ER/NN: SLIGHTLY LABORED, BIPAP IN PLACE, WHEEZES THROUGHOUT. DIMINISHED BLL. 12/01-NN: O2 SAT 99% WITH BIPAP IN PLACE. RESP EVEN AND UNLABORED. 12/01-ER PHYSICIAN DIAGNOSIS INCLUDES - DYSPNEA RISK FACTORS COPD exacerbation / Asthma Wears CPAP at night TREATMENTS Oxygen Monitoring of oxygenation status Mechanical ventilation / BiPAP Respiratory treatments Pulmonary Consult Thank you, Honey (This form is maintained as a part of the permanent medical record) 2014 [email or web address], [employer]. All Rights Reserved Honey Cabrera RN, CDIS [email or web address] [phone] MTDD
== END 2018-12-16 10:57 | DRG 189 ==
LOC: ERS 15:01 → ERHOLD 16:26 → IMCU/EMU 12-01 03:25 → OBSVTOIN 12-01 07:12 → T4-B 12-03 14:14
PROVIDERS: ADMIT Specialist; ATTEND Specialist
DX: J96.20 Acute and chronic respiratory failure, unspecified whether with hypoxia or hypercapnia (principal); J44.1 Chronic obstructive pulmonary disease with (acute) exacerbation; J45.901 Unspecified asthma with (acute) exacerbation; K21.9 Gastro-esophageal reflux disease without esophagitis; E78.5 Hyperlipidemia, unspecified; I10 Essential (primary) hypertension; M54.9 Dorsalgia, unspecified; G89.29 Other chronic pain; Z79.4 Long term (current) use of insulin; E11.9 Type 2 diabetes mellitus without complications; K58.9 Irritable bowel syndrome, unspecified; N32.81 Overactive bladder; J30.9 Allergic rhinitis, unspecified; M17.12 Unilateral primary osteoarthritis, left knee; F32.9 Major depressive disorder, single episode, unspecified; Z87.891 Personal history of nicotine dependence; E66.01 Morbid (severe) obesity due to excess calories; Z68.36 Body mass index [BMI] 36.0-36.9, adult; M25.572 Pain in left ankle and joints of left foot; M76.822 Posterior tibial tendinitis, left leg
CPT/HCPCS: 36415; 36416; 71045; 80048; 80053; 80061; 82805; 83036; 83605; 83880; 84484; 85025; 87040; 87804; 93005; 94640; 94660; 96361; 96374; J1650; J2060; J2405; J2920; J2930; J3475; J7050; J7506; J7620; J7626

== ENCOUNTER 2019-03-28 14:43 | Outpatient (CLI) | payer MEDICARE, MEDICAID ==
--- NOTE | 2019-03-28 15:26 | MMO ---
Bilateral MAMMO Bilat Screen [facility]. CLINICAL HISTORY: Patient is 69 years old and is seen for screening. The patient has no family history of breast cancer. The patient has no personal history of cancer. VIEWS: The views performed were: bilateral craniocaudal with tomosynthesis and bilateral mediolateral oblique with tomosynthesis. FILMS COMPARED: The present examination has been compared to prior imaging studies performed at [facility] on 03/16/2014, 03/19/2015, 03/21/2016, 03/24/2017 and 03/25/2018. MAMMOGRAM FINDINGS: The breasts are almost entirely fat. There are stable benign appearing calcifications seen in both breasts. There are no suspicious masses, suspicious calcifications, or new areas of architectural distortion. IMPRESSION: THERE IS NO MAMMOGRAPHIC EVIDENCE OF MALIGNANCY. A ROUTINE FOLLOW-UP MAMMOGRAM IN 1 YEAR IS RECOMMENDED. THE RESULTS OF THIS EXAM WERE SENT TO THE PATIENT. ACR BI-RADS Category 2 - Benign finding MAMMOGRAPHY NOTE: 1. A negative mammogram report should not delay a biopsy if a dominant of clinically suspicious mass is present. 2. Approximately 10% to 15% of breast cancers are not detected by mammography. 3. Adenosis and dense breasts may obscure an underlying neoplasm.
== END 2019-03-28 14:44 | disposition home or self-care (01) ==
LOC: BICMAMMO 14:43
PROVIDERS: ATTEND Specialist
DX: Z12.31 Encounter for screening mammogram for malignant neoplasm of breast (principal)
CPT/HCPCS: 77063; 77067

== ENCOUNTER 2019-04-20 12:26 | Emergency (ER) | payer MEDICARE, OTHER ==
--- NOTE | 2019-04-20 13:22 | RAD ---
Radiograph right knee 4 views: HISTORY: 59-year-old female with right knee pain FINDINGS: No fracture or dislocation. Joint spaces are maintained without erosions. Tiny osteophytes. No destru ctive osseous lesion or periostitis. No joint effusion. IMPRESSION: Negative
== END 2019-04-20 13:52 | disposition home or self-care (01) ==
LOC: ERS 12:26
DX: M25.561 Pain in right knee (principal); G89.29 Other chronic pain; M54.5 Low back pain; E11.9 Type 2 diabetes mellitus without complications; E78.00 Pure hypercholesterolemia, unspecified; I10 Essential (primary) hypertension; J44.9 Chronic obstructive pulmonary disease, unspecified; F32.9 Major depressive disorder, single episode, unspecified; Z87.891 Personal history of nicotine dependence; Z79.899 Other long term (current) drug therapy; Z79.51 Long term (current) use of inhaled steroids; Z79.82 Long term (current) use of aspirin

== ENCOUNTER 2019-05-04 11:30 | Outpatient (CLI) | payer MEDICARE, MEDICAID ==
--- NOTE | 2019-05-04 13:27 | MRI ---
MRI OF LUMBAR SPINE WITH AND WITHOUT CONTRAST: 05/04/19 Multiplanar and multisequential imaging lumbar spine obtained. INDICATION: Lumbar radiculopathy. History of prior back surgery. COMPARISON: Comparison made to MRI of lumbar spine dated 07/17/16. FINDINGS: Lumbar vertebrae maintain height. There is loss of disc space at T12-L1 and at L1-2. There are degene rative osteophytes at all levels most prominent at T12-L1 and L1-2. There is slight posterolisthesis at L1-2. At T12-L1, diffuse disc bulge flattens the thecal sac. Very mild central canal stenosis which is stab le from exam. At L1-2, slight posterolisthesis is slightly more prominent today. Diffuse disc bulge is more promine nt. These changes flatten the thecal sac. Facet and ligamentous hypertrophy is present. Mild to moder ate central canal stenosis. Bilateral foraminal stenosis is present. At L2-3, mild diffuse disc bulge is seen slightly more pronounced to the left. Facet and ligamentous hypertrophy is prominent. Moderate central canal stenosis has a similar appearance to the prior exam . Bilateral foraminal stenosis is also again noted at this level. At L3-4, mild diffuse disc bulge flattens the thecal sac. Facet and ligamentous hypertrophy. Mild vesta tral canal stenosis. At L4-5, slight anterolisthesis. Diffuse disc bulge. There is an annular fissure seen laterally on th e left with asymmetric bulge/protrusion to the left which has a similar appearance to the prior exam. Facet and ligamentous hypertrophy is prominent. Mild to moderate central canal stenosis has a simila r appearance to the prior study. The asymmetric bulge and annular fissure on the left produces left f oraminal encroachment and probable contact with the exiting left L4 nerve root. At L5-S1, mild disc bulge. Facet hypertrophy. Mild central canal stenosis. Synovial cyst seen on the right at this level on the prior study is no longer present. There is sugge stion of a right laminectomy procedure. There is prominent facet hypertrophy. Mild central canal sten osis at the disc level is stable. There continues to be mild right foraminal encroachment due to asym metric disc bulge and facet hypertrophy. IMPRESSION: Disc bulge at multiple levels results in central canal and foraminal stenosis. See description at eac h level above. The overall findings appears similar to exam of 2016. POS: C
== END 2019-05-04 11:31 | disposition home or self-care (01) ==
LOC: MRI 11:30
PROVIDERS: ATTEND Physician Assistant Surgical
DX: M51.16 Intervertebral disc disorders with radiculopathy, lumbar region (principal); M51.87 Other intervertebral disc disorders, lumbosacral region; M48.061 Spinal stenosis, lumbar region without neurogenic claudication; M48.07 Spinal stenosis, lumbosacral region; M43.16 Spondylolisthesis, lumbar region; M46.06 Spinal enthesopathy, lumbar region; M51.85 Other intervertebral disc disorders, thoracolumbar region; M48.04 Spinal stenosis, thoracic region
CPT/HCPCS: 72158; 82565

== ENCOUNTER 2019-07-16 02:12 | Inpatient (IN) | payer MEDICARE, MEDICAID ==
[2019-07-16 02:49] LABS: #Eosinphils 0.1 thou/uL (0.0-0.7); #Lymphocytes 1.8 thou/uL (1.20-3.40); #Monocytes 0.5 thou/uL (0.11-0.59); #Neutrophils 3.5 thou/uL (1.40-6.50); %Basophils 0.5 % (0.0-1.0); %Eosinophils 2.1 % (0.0-10.0); %Lymphocytes 29.4 % (21.0-51.0); %Monocytes 8.3 % (0.0-10.0); %Neutrophils 59.7 % (42.0-75.0); Hemoglobin 13.7 g/dL (12.0-16.0); Mean Corpuscular HGB CONC 33.1 g/dL (32.0-36.0); Mean Corpuscular Hemoglobin 28.5 pg (27.0-31.0); Mean Corpuscular Volume 86.2 fL (78.0-98.0); Mean Platelet Volume 7.3 fL (7.4-10.4); Platelet Count 239 thou/uL (130-400); RBC Distribution Width 13.1 % (11.5-14.5); White Blood Cell (WBC) Count 5.9 thou/uL (4.8-10.8)
[2019-07-16 03:08] LABS: ALT (SGPT) 12 U/L (8-55); AST (SGOT) 13 U/L (5-34); Albumin 4.2 g/dL (3.4-4.8); Alkaline Phosphatase 88 U/L (40-150); Anion Gap 16 mmol/L (10-20); BUN (Urea Nitrogen) 35 mg/dL (9.8-20.1); Bilirubin, Total 0.3 mg/dL (0.2-1.2); Calc. Creatinine Clearance 0 mL/min (70-130); Calcium 9.4 mg/dL (7.8-10.44); Carbon Dioxide 23 mmol/L (23-31); Chloride 103 mmol/L (98-107); Estimated GFR-MDRD 25; Globulin 2.8 g/dL (2.4-3.5); Glucose 124 mg/dL (80-115); Lipase 24 U/L (8-78); Potassium 3.9 mmol/L (3.5-5.1); Sodium 138 mmol/L (136-145)
[2019-07-16] MEDS ORDERED: Mag-Al 1200 mg/1200 mg/30 ML UDCUP ONE (03:44)
[2019-07-16] MEDS ORDERED: Lidocaine Viscous Sol 2% 15 ml UD Cup ONE (03:44)
[2019-07-16 04:42] LABS: Bacteria/HPF 2+ HPF (None Seen); Bilirubin Negative (Negative); Blood, Urine Trace (Negative); Clarity Extra Turbid (Clear); Glucose, Urine (Dipstick) Normal (Negative); Leukocyte 75 Leu/uL (Negative); Nitrite Negative (Negative); Protein, Urine (Dipstick) 50 mg/dL (Neg-Trace); RBC/HPF 0-3 HPF (0-3); Squamous Epithelial 0-3 HPF (0-3); Urobilinogen Normal mg/dL (Less than 2); Yeast-Budding 2+ HPF (None Seen)
[2019-07-16 06:11] LABS: Troponin I Less than 0.010 ng/mL (< 0.028)
[2019-07-16] MEDS ORDERED: Ondansetron PF 4 MG/2 ML Vial IVP PRN (06:21)
[2019-07-16] MEDS ORDERED: Ondansetron ODT 4 MG TAB SL PRN (06:21)
[2019-07-16 06:30] VITALS: BMI 35.2
--- NOTE | 2019-07-16 09:03 | RAD ---
CHEST 1 VIEW: COMPARISON: 11/30/2018. HISTORY: Chest pain. FINDINGS: Atherosclerosis of the aortic knob. Normal cardiac silhouette. Pulmonary vessels and hilum are norm al. Costophrenic angles are clear. Elevation of the right hemidiaphragm. No masses or consolidatio n. No pneumothorax or osseous abnormalities. IMPRESSION: Atherosclerosis. No acute cardiopulmonary process. POS: [facility]
[2019-07-16 09:22] LABS: Troponin I Less than 0.010 ng/mL (< 0.028)
[2019-07-16] MEDS ORDERED: Regadenoson 0.4 MG/5 ML SYRINGE ONE (09:58)
--- NOTE | 2019-07-16 11:52 | EKG ---
Test Reason : CP Blood Pressure : / mmHG Vent. Rate : 056 BPM Atrial Rate : 056 BPM P-R Int : 168 ms QRS Dur : 134 ms QT Int : 488 ms P-R-T Axes : 019 268 012 degrees QTc Int : 470 ms Sinus bradycardia Right bundle branch block Abnormal ECG Confirmed by ITALIA CABRALES M.D. ([id number]), editor greeting card CARMITA MCGOWAN ([id number]) on 07/16/2019 11:52:32 AM Referred By: Confirmed By:ITALIA CABRALES M.D.
--- NOTE | 2019-07-16 14:23 | HP ---
CHIEF COMPLAINT: Chest pain. HISTORY OF PRESENT ILLNESS: The patient is a 69-year-old female with chronic asthma and COPD, who has had one day of chest discomfort. She states it is aching in her epigastric area and radiates to her back. It makes her to feel short of breath. She coughs a lot, but this is also due to her chronic respiratory illnesses recently. She states she has had vomiting and diarrhea. The diarrhea began when she treated her constipation by doubling up on her Linzess, and for 1 week, she has had protracted numerous loose stools. In the emergency room, initial EKG and troponins were negative, but it is noted that her kidney functions have significantly deteriorated with a BUN of 35 and creatinine of 2.31, giving her a GFR of 25. For this reason and the rule out of chest pain, she is put into the hospital for further evaluation. PAST MEDICAL HISTORY: Significant for prior chest pain admission in November with a stress test that was completely normal, and she has hospitalization in November of this year for exacerbation of COPD. She has severe GERD, causing hospitalization in July 2018 for chest pain. As previously mentioned, asthma; dyslipidemia; hypertension; chronic back pain with overuse of prescription pain medication; insulin-dependent diabetes; COPD, last exacerbation in 11/2018; irritable bowel syndrome with constipation predominant; overactive bladder, allergic rhinitis; degenerative joint disease, mainly in her knees and left ankle. PAST SURGICAL HISTORY: Significant for bilateral cataract replacement and catheterization of her heart. She has also had back surgery. PSYCHIATRIC HISTORY: Significant for depression. 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 She is a former smoker, quit approximately 10 years ago. Denies any recent drug or alcohol use. ALLERGIES: TO CODEINE, WHICH GIVES HER SIDE EFFECT OF NAUSEA; LACTOSE AND TYLENOL MAKE HER HEART FLUTTER. MEDICATIONS ON ADMISSION: Include; 1. Lantus 30 units subcu daily. 2. Fluoxetine 20 mg daily. 3. Linzess 290 mg daily. 4. P.r.n. Zofran. 5. Topamax 100 mg b.i.d. 6. Carvedilol 12.5 mg b.i.d. 7. VESIcare 10 mg daily. 8. Aspirin 81 mg daily. 9. Flexeril 10 mg p.r.n. insomnia at bedtime. 10. Albuterol neb treatments q.4 hours p.r.n. 11. Trazodone 50 mg at bedtime. 12. Lyrica 100 mg b.i.d. 13. Zantac 300 mg daily. 14. Tramadol 50 mg q.6 hours p.r.n. chronic back pain. REVIEW OF SYSTEMS: At the time of admission ; CONSTITUTIONAL: Negative for fever or chills, but she does have some shortness of breath with her chest discomfort. General malaise is noted. HEENT: No drainage from eyes, ears, nose, or throat. NECK: Supple. CHEST: With dyspnea, cough. CARDIOVASCULAR: Denies palpitations or chest pain except in the epigastric area , on the rib cage, reproducible with palpation. ABDOMEN: Soft, nontender, unable to appreciate organomegaly due to obesity. Able to reproduce the chest pressure, discomfort with palpation. GI: Positive for nausea. Positive for diarrhea, profuse. : Negative for dysuria, blood in urine or stool. EXTREMITIES: Pain in her knees and pain in her back. SKIN: No acute rashes or lesions. PSYCHIATRIC: She has no symptoms of anxiety or depression at this time. PHYSICAL EXAMINATION: At the time of admission; VITAL SIGNS: Blood pressure 94/62, pulse 61, respirations 18, O2 saturations 100% on room air. GENERAL: This is an obese, female, alert, oriented, and cooperative. HEENT: Normocephalic and atraumatic. Pupils are equal, round, and reactive to light. Arcus senilis bilaterally. TMs, nares, and pharynx are clear. NECK: Supple. CHEST: Diminished breath sounds throughout. HEART: Regular rate and rhythm. Unremarkable. ABDOMEN: Distended, obese. BREASTS: Exam is deferred. HEART: Regular rate and rhythm without murmur. : Deferred. EXTREMITIES: Without clubbing, cyanosis, or edema. SKIN: Without rashes or lesions. NEUROLOGIC: Cranial nerves are intact. Gait and cerebral function are untested. Sensory exam is grossly intact. Mental status is at baseline. LABORATORY WORK: Since admission showed sodium 138, potassium 3.9, chloride 103 , CO2 of 16, BUN 35, creatinine 2.31, with a GFR of 25, glucose 124. Liver functions unremarkable. Troponin-I is negative x3. BNP 17. Liver functions all normal. WBCs 5.9, hemoglobin 13.7, hematocrit 41.3. Urinalysis showed 11 to 20 wbc's, leukocyte esterase 75, a lot of protein and casts. ASSESSMENT: 1. Chest pain, probably musculoskeletal with multiple risk factors. 2. Acute kidney injury due to profuse diarrhea from self medicating with Linzess. 3. Urinary tract infection. 4. Asthma. 5. Chronic obstructive pulmonary disease. PLAN: Will be stress test, fluid rehydration. If kidneys do not respond well, we will have to get a Renal consultation. Begin antibiotics for the UTI. Job ID: [id number] MTDD
[2019-07-16] MEDS: Sodium Chloride 0.9% 1,000 ML IV SCH ×4 (16:02→18:37)
--- NOTE | 2019-07-16 18:27 | ULT ---
Bilateral renal ultrasound CLINICAL INDICATION: Acute renal failure COMPARISON: 04/11/2018. FINDINGS: Right kidney: There is no evidence of a renal mass, renal calculus, or hydronephrosis seen. The right kidney measures 10.3 cm x 4.7 cm. Left kidney: There is no evidence of a renal mass, renal calculus, or hydronephrosis. The left kidney measures 10.4 cm x 4.8 cm. Urinary bladder: Distended and has a normal appearance. Urinary bladder volume is 432.9 mL. There is been no significant interval change compared to prior exam. IMPRESSION: No evidence of hydronephrosis.
[2019-07-16] MEDS: Budesonide 0.5 MG/2 ML NEB INH SCH (19:10)
[2019-07-16] MEDS: traZODone HCl 50 MG TAB PO SCH (20:51)
[2019-07-16] MEDS: Sulfameth/Trimethoprim DS 800-160mg TAB PO SCH (20:51)
[2019-07-16] MEDS: Carvedilol 25 MG TAB PO SCH (20:51)
[2019-07-16] MEDS: Pregabalin 50 MG CAP PO SCH (20:53)
[2019-07-16] MEDS: Benzonatate 100 MG CAP PO PRN (20:59)
[2019-07-16] MEDS ORDERED: Famotidine 20 MG TAB PO SCH (21:00)
[2019-07-17] MEDS: Sodium Chloride 0.9% 1,000 ML IV SCH ×2 (01:43→11:26)
[2019-07-17 06:15] LABS: #Basophils 0.1 thou/uL (0.0-0.2); #Eosinphils 0.2 thou/uL (0.0-0.7); #Lymphocytes 1.3 thou/uL (1.20-3.40); #Monocytes 0.4 thou/uL (0.11-0.59); #Neutrophils 2.3 thou/uL (1.40-6.50); %Basophils 1.3 % (0.0-1.0); %Eosinophils 4.1 % (0.0-10.0); %Lymphocytes 30.6 % (21.0-51.0); %Monocytes 9.1 % (0.0-10.0); %Neutrophils 54.9 % (42.0-75.0); Hemoglobin 11.7 g/dL (12.0-16.0); Mean Corpuscular HGB CONC 31.2 g/dL (32.0-36.0); Mean Corpuscular Hemoglobin 27.4 pg (27.0-31.0); Mean Platelet Volume 7.6 fL (7.4-10.4); Platelet Count 206 thou/uL (130-400); RBC Distribution Width 13.2 % (11.5-14.5); Red Blood Cell (RBC) Count 4.28 mill/uL (4.20-5.40); White Blood Cell (WBC) Count 4.3 thou/uL (4.8-10.8)
[2019-07-17 06:33] LABS: Anion Gap 11 mmol/L (10-20); BUN (Urea Nitrogen) 17 mg/dL (9.8-20.1); Calc. Creatinine Clearance 110 mL/min (70-130); Carbon Dioxide 21 mmol/L (23-31); Chloride 112 mmol/L (98-107); Estimated GFR-MDRD Greater than 90; Glucose 92 mg/dL (80-115); Potassium 3.8 mmol/L (3.5-5.1); Sodium 140 mmol/L (136-145)
[2019-07-17] MEDS: Budesonide 0.5 MG/2 ML NEB INH SCH ×2 (06:54→18:55)
[2019-07-17] MEDS ORDERED: Insulin Glargine 30 UNITS in Pre-Filled Syringe 1 EACH SC SCH (09:00)
--- NOTE | 2019-07-17 09:54 | NM ---
NUCLEAR MEDICINE CARDIAC STRESS WITH EF AND WALL MOTION: HISTORY: Chest pain. COPD. TECHNIQUE: The patient is administered 27.80 mCi of Technetium 99m sestamibi for rest imaging and 28.30 mCi of T echnetium 99m sestamibi for stress imaging. Two-day protocol was utilized. FINDINGS: There appears to be reversibility involving the cardiac apex. TID is 0.48. End-diastolic volume is 49 mL. End-systolic volume is 3 mL. CARDIAC GATING: Normal wall motion and thickening. 93% ejection fraction. IMPRESSION: 1. Reversibility in the cardiac apex. 2. 93% ejection fraction. POS: OFF
[2019-07-17] MEDS: Aspirin 81 mg Enteric Coated Tablet PO SCH (11:26)
[2019-07-17] MEDS: Carvedilol 25 MG TAB PO SCH ×2 (11:26→19:59)
[2019-07-17] MEDS: Sulfameth/Trimethoprim DS 800-160mg TAB PO SCH ×2 (11:26→19:59)
[2019-07-17] MEDS: Benzonatate 100 MG CAP PO PRN ×2 (11:32→19:57)
[2019-07-17] MEDS: Pregabalin 50 MG CAP PO SCH ×2 (11:32→19:58)
[2019-07-17] MEDS ORDERED: Budesonide 0.5 MG/2 ML NEB INH SCH (12:45)
[2019-07-17 13:01] LABS: Hemoglobin A1c 5.9 % (4.0-6.0)
--- NOTE | 2019-07-17 14:25 | RAD ---
TWO VIEWS CHEST: COMPARISON: 05/28/2018. INDICATION: History of chest pain. Abnormal stress test. FINDINGS: There is elevation of the right hemidiaphragm with adjacent atelectasis of the right lung base. Mild linear density of the right mid lung zone and of the left lung base also demonstrate the appearance of atelectasis. Cardiomediastinal silhouette is mildly enlarged. Mild prominence of the pulmonary v asculature. No significant effusion. IMPRESSION: 1. Prominent cardiac silhouette and pulmonary vasculature which may relate to congestive heart failu re. Correlate clinically. 2. Bilaterally atelectasis. POS: [facility]
--- NOTE | 2019-07-17 14:39 | CON ---
DATE OF CONSULTATION: REASON FOR CONSULTATION: Atypical chest pain. HISTORY OF PRESENT ILLNESS: Ms. Nava is 69-year-old woman, who was seen and evaluated in the past. She underwent coronary angiography in 2014. She was not found to have significant coronary artery disease. She also has severe asthma and COPD. She recently presented with atypical chest pain. It was mainly in the epigastric region. She states she had nausea. The pain would come and go. The pain is reproducible and worse with deep palpation. She underwent a noninvasive stress study on 07/16/2019 and was found to have a LVEF of 93% with a small defect noted at the apex. PAST MEDICAL HISTORY: Diabetes mellitus, hypertension, previous tobacco abuse, COPD. ALLERGIES: CODEINE. PREVIOUS HOME MEDICATIONS: Include: 1. Linzess. 2. SoloStar. 3. VESIcare. 4. Aspirin. 5. Fluoxetine. 6. Spiriva. 7. Silenor. 8. Crestor. 9. Topamax. 10. Nitrofurantoin. 11. . 12. Isosorbide. 13. Carvedilol. 14. Gabapentin. SOCIAL HISTORY: No current tobacco or alcohol use. REVIEW OF SYSTEMS: A 10-point review of systems is reviewed as above, otherwise negative. PHYSICAL EXAMINATION: GENERAL: Patient is a pleasant female, who is in no acute distress. The patient appears her stated age. VITAL SIGNS: Blood pressure 143/67, pulse 52, temperature 99.5. NEUROLOGIC: The patient is alert and oriented x3 with no focal neurologic deficits. HEENT: Sclerae without icterus. Mouth has moist mucous membranes with normal pallor. NECK: No JVD. Carotid upstroke brisk. No bruits bilaterally. LUNGS: Clear to auscultation with unlabored respirations. BACK: No scoliosis or kyphosis. CARDIAC: Regular rate and rhythm with normal S1 and S2. No S3 or S4 noted. No significant rubs, murmurs, thrills, or gallops noted throughout the precordium. PMI is not displaced. There is no parasternal heave. ABDOMEN: Pain to palpation noted in the midepigastric region. EXTREMITIES: 2+ femoral and 2+ dorsalis pedis pulses. No cyanosis, clubbing, or edema. SKIN: No gross abnormalities. PERTINENT LABORATORY DATA: CK and troponin, negative. Creatinine 0.69. Hemoglobin 11.7. EKG shows normal sinus rhythm with right bundle-branch block, nonspecific ST-T wave changes present. IMPRESSION: 1. Atypical chest pain. 2. Chronic obstructive pulmonary disease. 3. Previous tobacco abuse. RECOMMENDATIONS: Ms. Nava's stress study likely represents apical thinning versus true ischemia. Her symptoms are not felt to be cardiac. Would seek a noncardiac cause. She may need an abdominal ultrasound to assess for significant pathology. She does not have a previous history of cholecystectomy. Otherwise from my standpoint, I will continue secondary risk factor modification. Please re-consult if needed. Okay from my standpoint to discharge home once stable. Job ID: [id number]
[2019-07-17] MEDS: traZODone HCl 50 MG TAB PO SCH (19:59)
[2019-07-17] MEDS ORDERED: Famotidine 20 MG TAB PO SCH (21:00)
[2019-07-18] MEDS: Benzonatate 100 MG CAP PO PRN (05:14)
[2019-07-18] MEDS: traMADol HCl 50 MG TAB PO PRN ×2 (05:18→16:15)
[2019-07-18] MEDS: Budesonide 0.5 MG/2 ML NEB INH SCH ×2 (06:39→18:59)
[2019-07-18] MEDS ORDERED: Insulin Glargine 25 UNITS in Pre-Filled Syringe 1 EACH SC SCH (09:00)
--- NOTE | 2019-07-18 09:15 | ULT ---
Abdominal Ultrasound: Multiple grayscale images of right upper quadrant obtained according to protocol. INDICATION: Pain FINDINGS: Liver: Increased echogenicity with coarsening of the echotexture. Gallbladder: Normal Gallbladder wall: No acute gallbladder pathology. There is a small focus of increased echogenicity al ira the gallbladder wall, immobile. This could relate to a small adherent gallstone or possibly a polyp. Finding measures 5 mm. Grace's Sign: Negative Common bile duct is normal. Ascites: None Spleen: Suboptimal visualization, precluding assessment. Pancreas: Partially obscured by bowel content, limiting assessment. Kidneys: Prominence of the right renal pelvis. No overt hydronephrosis of left kidney. Aorta/IVC: No acute process. IMPRESSION: Coarsening of the hepatic echotexture. This could relate to hepatic steatosis and/or underlying hepat ocellular disease. Possible small adherent gallstone versus polyp measuring 5 mm. Recommend 4-6 month follow-up ultrasou nd for continued assessment.
[2019-07-18] MEDS: Aspirin 81 mg Enteric Coated Tablet PO SCH (09:26)
[2019-07-18] MEDS: Carvedilol 25 MG TAB PO SCH ×2 (09:26→21:15)
[2019-07-18] MEDS: Pregabalin 50 MG CAP PO SCH ×2 (09:27→21:16)
[2019-07-18] MEDS: Famotidine 20 MG TAB PO SCH ×2 (09:27→21:15)
[2019-07-18] MEDS: Sulfameth/Trimethoprim DS 800-160mg TAB PO SCH ×2 (09:29→21:15)
[2019-07-18] MEDS ORDERED: guaiFENesin 100 MG/5 ML UDCUP PO PRN (10:08)
[2019-07-18] MEDS: Diabetic Tussin 200 MG/10 ML UDCUP PO PRN ×2 (13:41→21:16)
[2019-07-18] MEDS: traZODone HCl 50 MG TAB PO SCH (21:14)
[2019-07-19] MEDS: traMADol HCl 50 MG TAB PO PRN (04:44)
[2019-07-19] MEDS: Diabetic Tussin 200 MG/10 ML UDCUP PO PRN ×2 (04:44→21:46)
[2019-07-19] MEDS: Budesonide 0.5 MG/2 ML NEB INH SCH ×2 (07:19→17:56)
[2019-07-19] MEDS: Aspirin 81 mg Enteric Coated Tablet PO SCH (09:28)
[2019-07-19] MEDS: Famotidine 20 MG TAB PO SCH ×2 (09:28→21:45)
[2019-07-19] MEDS: Carvedilol 25 MG TAB PO SCH ×2 (09:28→21:44)
[2019-07-19] MEDS: Sulfameth/Trimethoprim DS 800-160mg TAB PO SCH ×2 (09:28→21:45)
--- NOTE | 2019-07-19 16:12 | NM ---
HEPATOBILIARY SCAN: 07/19/19 HISTORY: Abdominal pain. RADIOPHARMACEUTICAL: 5 millicuries technetium 99m-Mebrofenin injected intravenously. FINDINGS: There is good tracer extraction by the liver with prompt excretion into the biliary tract and small b owel loops and normal filling of the gallbladder. The calculated gallbladder ejection fraction following the IV administration of 1.7 micrograms CCK ov er 30 minutes is 91%. IMPRESSION: Normal exam. POS: OFF
[2019-07-19] MEDS: Insulin Glargine 20 UNITS in Pre-Filled Syringe 1 EACH SC SCH (16:35)
[2019-07-19] MEDS: Pregabalin 50 MG CAP PO SCH ×2 (16:44→21:45)
[2019-07-19] MEDS: traZODone HCl 50 MG TAB PO SCH (21:45)
[2019-07-20] MEDS: Diabetic Tussin 200 MG/10 ML UDCUP PO PRN (02:00)
[2019-07-20] MEDS: traMADol HCl 50 MG TAB PO PRN ×2 (04:25→15:26)
[2019-07-20] MEDS: Benzonatate 100 MG CAP PO PRN (04:27)
[2019-07-20] MEDS: Budesonide 0.5 MG/2 ML NEB INH SCH ×2 (07:10→18:25)
[2019-07-20] MEDS: Sulfameth/Trimethoprim DS 800-160mg TAB PO SCH (08:52)
[2019-07-20] MEDS: Aspirin 81 mg Enteric Coated Tablet PO SCH (08:52)
[2019-07-20] MEDS: Pregabalin 50 MG CAP PO SCH (08:52)
[2019-07-20] MEDS: Carvedilol 25 MG TAB PO SCH (08:52)
[2019-07-20] MEDS: Famotidine 20 MG TAB PO SCH (08:53)
[2019-07-20] MEDS: Insulin Glargine 20 UNITS in Pre-Filled Syringe 1 EACH SC SCH (08:56)
[2019-07-20] MEDS ORDERED: Ondansetron ODT 4 MG TAB PO PRN (09:14)
[2019-07-20] MEDS ORDERED: Ondansetron ODT 4 MG TAB PO SCH (09:15)
[2019-07-20 16:35] VITALS: BP 123/75; TEMP 96.9
== END 2019-07-20 19:58 | disposition home or self-care (01) | DRG 683 ==
LOC: ERS 02:12 → OBSVTOIN 06:19 → 2SW 06:19 → 2NO 07-19 21:08
PROVIDERS: ADMIT Specialist; ATTEND Specialist
DX: N17.9 Acute kidney failure, unspecified (principal); N39.0 Urinary tract infection, site not specified; R07.89 Other chest pain; I10 Essential (primary) hypertension; J44.9 Chronic obstructive pulmonary disease, unspecified; G89.29 Other chronic pain; K21.9 Gastro-esophageal reflux disease without esophagitis; F32.9 Major depressive disorder, single episode, unspecified; J45.909 Unspecified asthma, uncomplicated; E11.9 Type 2 diabetes mellitus without complications; I25.10 Atherosclerotic heart disease of native coronary artery without angina pectoris; Z98.42 Cataract extraction status, left eye; Z98.41 Cataract extraction status, right eye; Z87.891 Personal history of nicotine dependence; Z88.6 Allergy status to analgesic agent; Z88.8 Allergy status to other drugs, medicaments and biological substances; Z79.4 Long term (current) use of insulin
CPT/HCPCS: 36415; 36416; 51701; 71045; 71046; 76700; 76770; 78227; 78452; 80048; 80053; 81003; 81015; 83036; 83690; 83880; 84484; 85025; 87086; 93005; 93017; 93306; 94640; 96360; 96361; A4353; A9500; A9537; J1815; J2785; J7620; J7626; Q0162

== ENCOUNTER 2019-10-11 10:09 | Outpatient (CLI) | payer MEDICARE, MEDICAID ==
--- NOTE | 2019-10-11 11:17 | RAD ---
CHEST 2 VIEWS: Date: 10/11/19 INDICATION: Dyspnea. COMPARISON: Prior exam dated 09/16/18. FINDINGS: Slight eventration of the right hemidiaphragm and right basilar atelectasis stable. Cardiaca silhouet te upper limits of normal. No pleural effusion or air space consolidation is evident. No acute osseou s abnormality is evident. IMPRESSION: No acute cardiopulmonary abnormality. POS: [facility]
== END 2019-10-11 10:10 | disposition home or self-care (01) ==
LOC: RAD 10:09
PROVIDERS: ATTEND Internal Medicine Critical Care Medicine
DX: R06.00 Dyspnea, unspecified (principal)
CPT/HCPCS: 71046

== ENCOUNTER 2020-05-17 12:32 | Outpatient (CLI) | payer MEDICARE ==
--- NOTE | 2020-05-17 12:56 | MMO ---
Bilateral MAMMO Bilat Screen [facility]. CLINICAL HISTORY: Patient is 70 years old and is seen for screening. The patient has no family history of breast cancer. The patient has no personal history of cancer. VIEWS: The views performed were: bilateral craniocaudal with tomosynthesis and bilateral mediolateral oblique with tomosynthesis. FILMS COMPARED: The present examination has been compared to prior imaging studies performed at [facility] on 03/21/2016, 03/24/2017, 03/25/2018 and 03/28/2019. This study has been interpreted with the assistance of computer-aided detection. MAMMOGRAM FINDINGS: The breasts are almost entirely fat. There are stable benign appearing calcifications seen in both breasts. There are no suspicious masses, suspicious calcifications, or new areas of architectural distortion. IMPRESSION: THERE IS NO MAMMOGRAPHIC EVIDENCE OF MALIGNANCY. A ROUTINE FOLLOW-UP MAMMOGRAM IN 1 YEAR IS RECOMMENDED. THE RESULTS OF THIS EXAM WERE SENT TO THE PATIENT. ACR BI-RADS Category 2 - Benign finding MAMMOGRAPHY NOTE: 1. A negative mammogram report should not delay a biopsy if a dominant of clinically suspicious mass is present. 2. Approximately 10% to 15% of breast cancers are not detected by mammography. 3. Adenosis and dense breasts may obscure an underlying neoplasm. Reported by: STEVE BEAVER MD Electonically Signed: [id number]
== END 2020-05-17 12:33 | disposition home or self-care (01) ==
LOC: BICMAMMO 12:32
PROVIDERS: ATTEND Specialist
DX: Z12.31 Encounter for screening mammogram for malignant neoplasm of breast (principal)
CPT/HCPCS: 77063; 77067

== ENCOUNTER 2020-07-20 18:14 | Inpatient (IN) | payer MEDICARE, MEDICAID, OTHER ==
[2020-07-20] MEDS ORDERED: Nitroglycerin 0.4 MG TAB 1 EACH ONE (18:46)
--- NOTE | 2020-07-20 18:50 | RAD ---
PORTABLE CHEST: 07/20/20 PROVIDED CLINICAL HISTORY: Chest pain. COMPARISON: 07/16/19 FINDINGS: The cardiac and mediastinal silhouette is unchanged in appearance. No focal consolidation, pleural fl uid or pneumothorax apparent. IMPRESSION: No evidence for an acute cardiopulmonary process. POS: [facility]
[2020-07-20] MEDS ORDERED: Potassium Chloride 20 MEQ TAB ONE (21:06)
[2020-07-20 22:11] LABS: Carbon Dioxide 25 mmol/L (23-31); Chloride 107 mmol/L (98-107); Potassium 3.2 mmol/L (3.5-5.1); Sodium 138 mmol/L (136-145)
[2020-07-20 22:12] LABS: ALT (SGPT) 7 U/L (8-55); AST (SGOT) 10 U/L (5-34); Albumin 3.6 g/dL (3.4-4.8); Alkaline Phosphatase 49 U/L (40-110); Anion Gap 9 mmol/L (10-20); BUN (Urea Nitrogen) 17 mg/dL (9.8-20.1); Bilirubin, Total 0.2 mg/dL (0.2-1.2); Calc. Creatinine Clearance 0 mL/min (70-130); Calcium 8.1 mg/dL (7.8-10.44); Estimated GFR-MDRD 90; Glucose 95 mg/dL (80-115); Protein, Total 5.6 g/dL (5.8-8.1)
[2020-07-20 23:02] LABS: #Eosinphils 0.2 thou/uL (0.0-0.7); #Lymphocytes 1.4 thou/uL (1.20-3.40); #Monocytes 0.5 thou/uL (0.11-0.59); #Neutrophils 1.8 thou/uL (1.40-6.50); %Basophils 0.4 % (0.0-1.0); %Eosinophils 5.3 % (0.0-10.0); %Lymphocytes 36.3 % (21.0-51.0); %Monocytes 12.3 % (0.0-10.0); %Neutrophils 45.7 % (42.0-75.0); Hemoglobin 12.7 g/dL (12.0-16.0); Mean Corpuscular HGB CONC 31.9 g/dL (32.0-36.0); Mean Corpuscular Hemoglobin 28.4 pg (27.0-31.0); Mean Corpuscular Volume 89.1 fL (78.0-98.0); Mean Platelet Volume 8.5 fL (7.4-10.4); Platelet Count 249 thou/uL (130-400); RBC Distribution Width 13.2 % (11.5-14.5); Red Blood Cell (RBC) Count 4.47 mill/uL (4.20-5.40); White Blood Cell (WBC) Count 3.9 thou/uL (4.8-10.8)
[2020-07-21] LABS: Troponin I Less than 0.010 ng/mL (< 0.028)
[2020-07-21] MEDS ORDERED: Acetaminophen 325 MG TAB PO PRN (00:34)
[2020-07-21] MEDS ORDERED: Ondansetron ODT 4 MG TAB SL PRN (00:34)
[2020-07-21] MEDS ORDERED: Ondansetron PF 4 MG/2 ML Vial IVP PRN (00:34)
[2020-07-21 00:38] VITALS: BMI 33.0
[2020-07-21 02:58] LABS: Troponin I Less than 0.010 ng/mL (< 0.028)
[2020-07-21] MEDS ORDERED: traMADol HCl 50 MG TAB PO PRN (10:48)
[2020-07-21 11:01] LABS: Hemoglobin A1c 5.8 % (4.0-6.0)
[2020-07-21 11:08] LABS: Anion Gap 12 mmol/L (10-20); BUN (Urea Nitrogen) 11 mg/dL (9.8-20.1); Calc. Creatinine Clearance 104 mL/min (70-130); Calcium 8.6 mg/dL (7.8-10.44); Carbon Dioxide 21 mmol/L (23-31); Chloride 113 mmol/L (98-107); Estimated GFR-MDRD Greater than 90; Glucose 96 mg/dL (80-115); Potassium 3.4 mmol/L (3.5-5.1); Sodium 143 mmol/L (136-145)
[2020-07-21 11:26] LABS: Bacteria/HPF 1+ HPF (None Seen); Bilirubin Negative (Negative); Blood, Urine Negative (Negative); Clarity Clear (Clear); Glucose, Urine (Dipstick) Normal (Negative); Ketone, Urine Negative (Negative); Leukocyte 25 Leu/uL (Negative); Nitrite Negative (Negative); Protein, Urine (Dipstick) Negative (Neg-Trace); RBC/HPF 0-3 HPF (0-3); Specific Gravity, Urine 1.008 (1.002-1.036); Squamous Epithelial 0-3 HPF (0-3); Urobilinogen Normal mg/dL (Less than 2); WBC/HPF 0-3 HPF (0-3)
[2020-07-21] MEDS: Furosemide 40 MG TAB PO SCH (13:19)
[2020-07-21] MEDS: Cyclobenzaprine 10 MG TAB PO SCH ×3 (13:19→20:35)
--- NOTE | 2020-07-21 15:30 | HP ---
CHIEF COMPLAINT: Chest pain. HISTORY OF PRESENT ILLNESS: The patient is a 70-year-old female, who was in her usual state of good health until around 3:00 p.m. On the day of admission, she had eaten some spaghetti and ever since eating that she had a full sensation in her chest. She went ahead and took a nap afterwards. When she woke up and the sensation was still there, in fact she felt a little bit worse being a little nauseated. She decided to call EMS. She did not vomit. There was no shortness of breath. No diaphoresis. She felt like pressure. It went somewhat into the left arm. She took an aspirin because of history of heart attacks and stents in the past. She was brought to the emergency room. There, it was relieved with one nitroglycerin. The patient had already taken her aspirin. Her blood pressure was adequate. Her blood sugar were 120 that day. Initial cardiac enzymes were negative, but she continued with pressure overnight and because of her history and heart score it was decided to continue cardiac rule out. It had been one year since she has had an echocardiogram. PAST MEDICAL HISTORY: As mentioned above. Prior history of heart disease. She is an insulin-dependent diabetic. She has severe GERD, which has caused hospitalization and chest pain in 2018. Her last hospitalization was in November , where a stress test was completely normal on her hospitalization. Prior to that was for an exacerbation of COPD. She has asthma, dyslipidemia, chronic back pain with overuse of prescription medication, irritable bowel syndrome with constipation ( may be medication induced), overactive bladder, allergic rhinitis, degenerative joint disease mainly in her knees and left ankle. PAST SURGICAL HISTORY: Includes bilateral cataract replacement, catheterization of her heart and back surgery. PSYCHIATRIC HISTORY: Significant for depression. SOCIAL HISTORY: Lives alone at home. 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 She is a former smoker, quit approximately 10 years ago. Denies any recent drug or alcohol use. ALLERGIES: CODEINE, WHICH GIVES HER NAUSEA, LACTOSE AND TYLENOL MAKE HER HEART FLUTTER. MEDICATIONS ON ADMISSION: Include; 1. Topamax 50 mg b.i.d. 2. Albuterol p.r.n., neb treatments. 3. VESIcare 10 mg daily. 4. Lyrica 100 mg b.i.d. 5. Singulair 10 mg daily. 6. Flexeril at bedtime. 7. Pulmicort b.i.d. 8. Terazosin 5 mg daily. 9. Furosemide 40 mg b.i.d. 10. Lisinopril 2.5 mg daily. 11. Linzess 145 mcg daily. 12. Carvedilol 12.5 mg b.i.d. 13. Protonix 40 mg b.i.d. 14. Levemir 25 units subcu daily. 15. Tizanidine 4 mg t.i.d. 16. Chlorzoxazone p.r.n. exacerbation of pain 500 mg q.6. 17. Aspirin 81 mg daily. I do not see her statin, so I am going to put her on one. Basically, she has adverse reactions to codeine, metformin, lactose, and acetaminophen, which may not be true allergies. They are not her preferred medication. REVIEW OF SYSTEMS: GENERAL: Alert, responsive. HEENT: Denies drainage from eyes, ears, nose, or throat. CHEST: Denies cough or shortness of breath at this time. CARDIOVASCULAR: Denies palpitations, but does have chest fullness and pressure as reason for admission. GASTROINTESTINAL: Positive for nausea. Negative for vomiting or diarrhea. : Negative for blood in urine or stool or painful urination. MUSCULOSKELETAL: Normal range of motion. No rashes or lesions or evidence of edema and deformity. NEUROLOGIC: Admits to headaches, but no blurred vision or trouble with mentation. PHYSICAL EXAMINATION: At the time of admission; VITAL SIGNS: Blood pressure 142/61, pulse 57, temperature 98, O2 saturation 98 % on room air. GENERAL: This is a well-developed, well-nourished, obese female, alert, oriented, cooperative. HEENT: Normocephalic, atraumatic with arcus senilis bilaterally. TMs, nares, and pharynx clear. NECK: Supple. Trachea midline. CHEST: With slightly diminished breath sounds, but no active wheezing. HEART: Regular rate and rhythm without murmur. BREASTS: Deferred. ABDOMEN: Soft, nontender without organomegaly. : Deferred. EXTREMITIES: Without clubbing, cyanosis, or edema. SKIN: Without rashes or lesions. NEUROLOGICAL: Nonfocal and intact with sensation grossly intact. Unable to test gait and cerebellar function at this time. Mental status is clear. LAB WORK: On admission showed WBCs 3.9, hemoglobin 12.7, hematocrit 39.9 with platelets at 249. Chemistries include sodium 138, potassium 3.2, chloride 107, CO2 of 25, BUN is 17, creatinine 0.77 with a GFR of 90, calcium 8.1. Liver functions unremarkable. Troponins negative x1 to 3. BNP at 44. Liver functions unremarkable. Chest x-ray shows no acute process. ASSESSMENT: 1. Chest pain, most likely due to GI etiology. 2. History of gastroesophageal reflux disease. 3. Hypokalemia. 4. Insulin-dependent diabetic. 5. History of coronary artery disease. 6. Hypertension. 7. Chronic back pain. PLAN: Plan will be at this point an upper GI with GI consult and once these are performed and I have given the possible etiology of her chest pain, she will then be dismissed. We will also repeat her echo since it has been a year since that has been done. Should there be an abnormality we will consult Cardiology. At this time, we will put on sliding scale insulin and continue her routine medications and continue to monitor her. Discharge is anticipated once GI evaluation is complete. Job ID: [id number] MTDD
[2020-07-21 16:04] LABS: SARS-CoV-2 MS2 Positive; SARS-CoV-2 N Gene Negative; SARS-CoV-2 S Gene Negative; SARS-CoV-2 by NAA Not Detected (NotDetected); SARS-CoV-2 orf1ab Negative
[2020-07-21] MEDS: Budesonide 0.5 MG/2 ML NEB NEB SCH (19:31)
[2020-07-21] MEDS: Atorvastatin Calcium 10 MG TAB PO SCH (20:35)
[2020-07-21] MEDS: Pregabalin 50 MG CAP PO SCH (20:37)
[2020-07-21] MEDS: Topiramate 25 MG TAB PO SCH (20:37)
[2020-07-21] MEDS: Trospium 20 MG TAB PO SCH (20:37)
[2020-07-21] MEDS: Carvedilol 6.25 MG TAB PO SCH (20:38)
[2020-07-21] MEDS: Potassium Chloride 20 MEQ TAB PO SCH (20:38)
--- NOTE | 2020-07-22 00:25 | CON ---
DATE OF CONSULTATION: 07/21/2020 CHIEF COMPLAINT: Upper epigastric pain. HISTORY OF PRESENT ILLNESS: Ms. Nava is a 70-year-old woman who ate spaghetti last night. After lying down, she developed onset of pressure type pain at the upper epigastric region that lasted for hours. She has had this pain intermittently whenever she eats over the last 3 weeks. She has nausea, but does not vomit. Her weight has been stable. She came to the emergency room and was admitted and had cardiac enzymes, which were negative. She was evaluated by Dr. Kelly for atypical chest pain last year and noted that she had a coronary angiogram, which was normal in 2014 and a negative stress test last year. She has an echocardiogram ordered for tomorrow. She did have EGD in 2016, which was normal. She had EGD and colonoscopy in 2015. EGD then showed mild gastritis and the colonoscopy revealed a couple of small adenomatous polyps. PAST MEDICAL HISTORY: Diabetes mellitus on insulin, COPD, asthma, hyperlipidemia, and back pain. PAST SURGICAL HISTORY: Cataract surgery, heart catheterization. She had back surgery last year. FAMILY HISTORY: Negative for GI malignancy. SOCIAL HISTORY: Quit smoking many years ago. No drugs or alcohol. ALLERGIES: CODEINE, TYLENOL, AND LACTOSE. MEDICATIONS: Prior to admission: 1. Topamax. 2. Albuterol. 3. VESIcare. 4. Lyrica. 5. Singulair. 6. Flexeril. 7. Pulmicort. 8. Terazosin. 9. Furosemide. 10. Lisinopril. 11. Linzess. 12. Carvedilol. 13. Levemir. 14. Tizanidine. 15. Chlorzoxazone. 16. Aspirin. 17. Protonix twice daily. REVIEW OF SYSTEMS: Negative x10 systems reviewed except as stated in history of present illness. PHYSICAL EXAMINATION: VITAL SIGNS: Temperature 98.9, pulse 75, and blood pressure 130/81. GENERAL: She is in no acute distress. Alert and oriented x3. HEENT: Eyes have no scleral icterus. Oropharynx is clear without lesions. No cervical or supraclavicular lymphadenopathy. LUNGS: Clear to auscultation bilaterally. HEART: Regular rate and rhythm without murmur. ABDOMEN: Soft, tender in the epigastric region without guarding. Bowel sounds are present. EXTREMITIES: No lower extremity edema. NEUROLOGIC: Cranial nerves are grossly intact. LABORATORY DATA: Creatinine 0.67. Bilirubin 0.2, AST 10, ALT 11, alkaline phosphatase 49, albumin 3.6. White blood cell count 3.9, hemoglobin 12.7, and platelets 249. IMPRESSION: 1. Epigastric abdominal pain, postprandial for the last 3 weeks. This episode worsened after eating spaghetti. She has been on pantoprazole twice daily and therefore, a new ulcer esophagitis would not be expected. She could have an esophageal stenosis, but no obvious dysphagia. She had evaluation for atypical chest pain a year ago and at that time had a HIDA scan, which was normal. She had an ultrasound that showed a 5 mm polyp versus adherent gallstone, but it was otherwise normal. She had an echocardiogram that was negative and a stress test that was negative. Her last endoscopy was in 2016 and was normal. At this point, it would be reasonable to re-evaluate with endoscopy given her immediate postprandial symptoms. 2. History of chronic constipation. She takes Linzess daily and has one loose stool per day on that. RECOMMENDATIONS: 1. She will get an echocardiogram tomorrow. 2. We will plan EGD on Thursday. 3. In the future, she could get ultrasound of the gallbladder to re-evaluate the gallbladder polyp in light of its 5 mm size. This is just to verify that she does have a polyp that it has remained stable and not growing. Job ID: [id number]
[2020-07-22] MEDS: Budesonide 0.5 MG/2 ML NEB NEB SCH ×2 (07:15→18:52)
[2020-07-22] MEDS ORDERED: Insulin Glargine 25 UNITS in Pre-Filled Syringe 1 EACH SC SCH (09:00)
[2020-07-22] MEDS ORDERED: LINZESS 145 MG PO SCH (09:00)
--- NOTE | 2020-07-22 10:12 | RAD ---
Exam: Upper GI HISTORY: Evaluate for esophageal dysmotility versus hiatal hernia. EXPOSURE: 1.2 minutes, 41.7 keith per cm2. FINDINGS: Examination is limited due to patient's lack of mobility. Supine catalogue maker abdomen radiograph demonstrates a nonspecific bowel gas pattern. The thoracic esophagus has a normal course and caliber. No mucosal abnormality. No evidence of hiatal hernia. There is reflux during intermittent fluoroscopy. No evidence of tertiary contractions to suggest esophageal dysmotility. Postprocedure supine and upright radiograph demonstrates contrast in the stomach and small bowel loop s. There does appear to be a possible diverticulum involving the third portion of the duodenum, not appreciated during fluoroscopy. IMPRESSION: 1. No hiatal hernia. 2. No evidence of esophageal dysmotility/tertiary contractions. 3. Moderate reflux during intermittent fluoroscopy. Transcribed Date/Time: 07/22/2020 10:48 AM
[2020-07-22] MEDS: Pregabalin 50 MG CAP PO SCH ×2 (10:46→20:11)
[2020-07-22] MEDS: Terazosin HCl 5 MG CAP PO SCH (10:47)
[2020-07-22] MEDS: Aspirin Chewable 81 MG TAB PO SCH (10:47)
[2020-07-22] MEDS: Cyclobenzaprine 10 MG TAB PO SCH ×4 (10:47→20:12)
[2020-07-22] MEDS: Carvedilol 6.25 MG TAB PO SCH ×2 (10:48→20:13)
[2020-07-22] MEDS: Trospium 20 MG TAB PO SCH ×2 (10:48→20:11)
[2020-07-22] MEDS: Potassium Chloride 20 MEQ TAB PO SCH ×2 (10:48→20:10)
[2020-07-22] MEDS: Topiramate 25 MG TAB PO SCH ×2 (10:49→20:10)
[2020-07-22] MEDS: Lisinopril 2.5 MG TAB PO SCH (10:49)
[2020-07-22] MEDS: Furosemide 40 MG TAB PO SCH ×2 (10:49→14:46)
[2020-07-22] MEDS: Acetaminophen 325 MG TAB PO SCH ×3 (14:46→20:07)
[2020-07-22] MEDS: Benzonatate 100 MG CAP PO PRN ×2 (14:46→20:10)
[2020-07-22] MEDS: Atorvastatin Calcium 10 MG TAB PO SCH (20:10)
--- NOTE | 2020-07-22 20:34 | PRG ---
DATE OF SERVICE: 07/22/2020 SUBJECTIVE: Ms. Nava states that she ate pretty well today. She is having some wheezing this evening. OBJECTIVE: VITAL SIGNS: Temperature is 97.5, pulse 72, blood pressure 104/54, and oxygen saturations 94%. GENERAL: She is in no acute distress. She has prolonged expiratory phase. LUNGS: Have scattered expiratory wheezes. HEART: Regular rate and rhythm without murmur. ABDOMEN: Soft, nontender, and nondistended. Bowel sounds are present. EXTREMITIES: No lower extremity edema. LABORATORY DATA: Creatinine 0.67. White blood cell count 3.9 and hemoglobin 12.7. IMPRESSION: Postprandial epigastric pain. RECOMMENDATIONS: She is on a schedule for EGD for tomorrow. Job ID: [id number]
[2020-07-23 05:17] LABS: #Basophils 0.1 thou/uL (0.0-0.2); #Eosinphils 0.3 thou/uL (0.0-0.7); #Lymphocytes 1.7 thou/uL (1.20-3.40); #Monocytes 0.5 thou/uL (0.11-0.59); #Neutrophils 2.3 thou/uL (1.40-6.50); %Basophils 1.5 % (0.0-1.0); %Eosinophils 5.4 % (0.0-10.0); %Lymphocytes 35.3 % (21.0-51.0); %Monocytes 10.6 % (0.0-10.0); %Neutrophils 47.2 % (42.0-75.0); Hemoglobin 13.6 g/dL (12.0-16.0); Mean Corpuscular HGB CONC 31.6 g/dL (32.0-36.0); Mean Corpuscular Hemoglobin 27.9 pg (27.0-31.0); Mean Corpuscular Volume 88.4 fL (78.0-98.0); Mean Platelet Volume 7.2 fL (7.4-10.4); Platelet Count 308 thou/uL (130-400); RBC Distribution Width 13.2 % (11.5-14.5); Red Blood Cell (RBC) Count 4.87 mill/uL (4.20-5.40); White Blood Cell (WBC) Count 4.9 thou/uL (4.8-10.8)
[2020-07-23 05:37] LABS: Anion Gap 13 mmol/L (10-20); BUN (Urea Nitrogen) 19 mg/dL (9.8-20.1); Calc. Creatinine Clearance 81 mL/min (70-130); Calcium 8.7 mg/dL (7.8-10.44); Carbon Dioxide 25 mmol/L (23-31); Chloride 107 mmol/L (98-107); Estimated GFR-MDRD 79; Glucose 121 mg/dL (80-115); Potassium 3.5 mmol/L (3.5-5.1); Sodium 141 mmol/L (136-145)
[2020-07-23] MEDS ORDERED: Albuterol Sulfate 1.25 MG/3 ML NEB ONE (07:20)
[2020-07-23] MEDS: Budesonide 0.5 MG/2 ML NEB NEB SCH ×2 (07:21→18:29)
[2020-07-23] MEDS ORDERED: Fentanyl 100 MCG/2 ML VIAL ONE (08:32)
--- NOTE | 2020-07-23 08:43 | OP ---
DATE OF PROCEDURE: 07/23/2020 PROCEDURE: Esophagogastroduodenoscopy. PREOPERATIVE DIAGNOSIS: Epigastric pain. DESCRIPTION OF PROCEDURE: Informed consent was obtained from the patient. She was sedated with total intravenous anesthesia. The bite block was placed. The endoscope was advanced easily to the second portion of the duodenum and retroflexion was performed in the stomach. The esophagus was normal. The GE junction was normal. The stomach had a moderate amount of vegetable matter retained in the fundus. The remainder of the gastric mucosa was normal. The pylorus and first and second portions of the duodenum were normal. She did desaturate and was bagged very briefly and immediately returned to normal sats during the procedure. IMPRESSION: 1. [id number] retained vegetable matter in the fundus of the stomach consistent with prior diagnosis of gastroparesis, which has been followed previously by Dr. Mckay. 2. Otherwise normal EGD. RECOMMENDATIONS: 1. Low residue diabetic diet with small frequent meals and separation of liquid and solid portions of the meals to avoid overdistention of the stomach. 2. CT scan of the abdomen and pelvis with oral and IV contrast. 3. I will add lipase to her morning lab draw. Job ID: [id number]
[2020-07-23] MEDS ORDERED: Insulin Glargine 20 UNITS in Pre-Filled Syringe 1 EACH SC SCH (09:00)
[2020-07-23 09:36] LABS: ALT (SGPT) 7 U/L (8-55); AST (SGOT) 12 U/L (5-34); Albumin 3.7 g/dL (3.4-4.8); Alkaline Phosphatase 55 U/L (40-110); Bilirubin, Direct 0.1 mg/dL (0.1-0.3); Bilirubin, Total 0.2 mg/dL (0.2-1.2); Lipase 14 U/L (8-78); Protein, Total 6.1 g/dL (6.0-8.3)
[2020-07-23] MEDS ORDERED: Lidocaine 1% PF 5 ML VIAL ONE (11:09)
[2020-07-23] MEDS ORDERED: PROPOFOL 200 MG/20 ML VIAL ONE (11:09)
[2020-07-23] MEDS: Acetaminophen 325 MG TAB PO SCH ×3 (11:36→20:01)
[2020-07-23] MEDS: Benzonatate 100 MG CAP PO PRN ×2 (11:36→20:06)
[2020-07-23] MEDS: Cyclobenzaprine 10 MG TAB PO SCH ×4 (11:37→20:03)
[2020-07-23] MEDS: Furosemide 40 MG TAB PO SCH ×2 (11:37→15:26)
[2020-07-23] MEDS: Aspirin Chewable 81 MG TAB PO SCH (11:37)
[2020-07-23] MEDS: Carvedilol 6.25 MG TAB PO SCH ×2 (11:38→20:02)
[2020-07-23] MEDS: Potassium Chloride 20 MEQ TAB PO SCH ×2 (11:38→20:03)
[2020-07-23] MEDS: Trospium 20 MG TAB PO SCH ×2 (11:39→20:06)
[2020-07-23] MEDS: Topiramate 25 MG TAB PO SCH ×2 (11:39→20:06)
[2020-07-23] MEDS: Terazosin HCl 5 MG CAP PO SCH (11:39)
[2020-07-23] MEDS: Pregabalin 50 MG CAP PO SCH ×2 (11:40→20:04)
[2020-07-23] MEDS: Lisinopril 2.5 MG TAB PO SCH (11:46)
[2020-07-23] MEDS: Atorvastatin Calcium 10 MG TAB PO SCH (20:01)
[2020-07-24] MEDS: Benzonatate 100 MG CAP PO PRN ×3 (01:46→20:54)
[2020-07-24] MEDS: Budesonide 0.5 MG/2 ML NEB NEB SCH ×2 (06:49→18:57)
[2020-07-24] MEDS: Topiramate 25 MG TAB PO SCH ×2 (09:53→20:54)
[2020-07-24] MEDS: Pregabalin 50 MG CAP PO SCH ×2 (09:54→20:55)
[2020-07-24] MEDS: Cyclobenzaprine 10 MG TAB PO SCH ×4 (09:55→20:55)
[2020-07-24] MEDS: Potassium Chloride 20 MEQ TAB PO SCH ×2 (09:55→20:54)
[2020-07-24] MEDS: Furosemide 40 MG TAB PO SCH ×2 (09:55→14:50)
[2020-07-24] MEDS: Acetaminophen 325 MG TAB PO SCH ×4 (09:55→21:00)
[2020-07-24] MEDS: Lisinopril 2.5 MG TAB PO SCH (09:56)
[2020-07-24] MEDS: Trospium 20 MG TAB PO SCH ×2 (09:56→20:54)
[2020-07-24] MEDS: Aspirin Chewable 81 MG TAB PO SCH (09:57)
[2020-07-24] MEDS: Terazosin HCl 5 MG CAP PO SCH (10:07)
[2020-07-24] MEDS: guaiFENesin ER 600 MG TAB PO SCH ×2 (10:07→20:56)
[2020-07-24] MEDS: Insulin Glargine 15 UNITS in Pre-Filled Syringe 1 EACH SC SCH (10:17)
[2020-07-24] MEDS ORDERED: GoLYTELY 4,000 ml Bottle PO SCH (10:45)
[2020-07-24] MEDS: Carvedilol 6.25 MG TAB PO SCH ×2 (11:37→20:55)
--- NOTE | 2020-07-24 14:58 | RAD ---
EXAM: ABDOMEN ONE VIEW: 07/24/20 HISTORY: Evaluate for retained barium, follow-up hiatal hernia, follow-up esophageal dysmotility. There is some residual contrast media within the colon. there is some scattered diverticulosis. The r ight colon appears to be somewhat more midline in location than typically seen. A normal appearing pa rtially visualized appendix is seen. No evidence for abnormal small bowel dilatation. IMPRESSION: Contrast given on the 07/22/20 upper GI examination has progressed into the colon. Minimal colonic div erticulosis. Somewhat medially positioned right colon. POS: OFF
--- NOTE | 2020-07-24 19:50 | PRG ---
DATE OF SERVICE: 07/24/2020 SUBJECTIVE: The patient reports feeling better than yesterday. Her epigastric pain is actually less. Coughing makes the pain worse. No nausea or vomiting today. She is still coughing quite a bit. OBJECTIVE: VITAL SIGNS: Temperature 97.7, blood pressure 123/85, pulse of 68. GENERAL: She is alert, in no distress. HEENT: Shows anicteric sclerae. Oropharynx is clear and moist. CHEST: Bilateral breath sounds, some rhonchi, but it could be major airway noise. ABDOMEN: Protuberant, but soft. No tenderness to deep palpation. She has active bowel sounds. EXTREMITIES: Exam shows no edema. LABORATORY DATA: No labs today. ASSESSMENT: Epigastric pain with evidence of delayed gastric emptying with food residue still at the time of the endoscopy. The patient had negative gallbladder evaluation last year with ultrasound that showed only gallbladder polyp and a negative HIDA scan with ejection fraction. CT was ordered, but the patient still has retained barium from upper GI series. RECOMMENDATIONS: 1. Gastroparesis diet with smaller volume and low fat diet. 2. We will and schedule abdominopelvic CT in a.m. 3. We will also get gallbladder ultrasound to assess any interval change in the gallbladder polyp that was seen last year. Job ID: [id number]
[2020-07-24] MEDS: Atorvastatin Calcium 10 MG TAB PO SCH (20:55)
[2020-07-25] MEDS: Benzonatate 100 MG CAP PO PRN ×2 (05:50→17:33)
[2020-07-25 06:19] LABS: #Eosinphils 0.2 thou/uL (0.0-0.7); #Lymphocytes 1.7 thou/uL (1.20-3.40); #Monocytes 0.4 thou/uL (0.11-0.59); #Neutrophils 2.2 thou/uL (1.40-6.50); %Basophils 0.8 % (0.0-1.0); %Eosinophils 5.2 % (0.0-10.0); %Lymphocytes 36.9 % (21.0-51.0); %Monocytes 8.7 % (0.0-10.0); %Neutrophils 48.5 % (42.0-75.0); Hemoglobin 13.2 g/dL (12.0-16.0); Mean Corpuscular HGB CONC 31.6 g/dL (32.0-36.0); Mean Corpuscular Hemoglobin 28.3 pg (27.0-31.0); Mean Corpuscular Volume 89.7 fL (78.0-98.0); Mean Platelet Volume 7.8 fL (7.4-10.4); Platelet Count 271 thou/uL (130-400); Red Blood Cell (RBC) Count 4.67 mill/uL (4.20-5.40); White Blood Cell (WBC) Count 4.6 thou/uL (4.8-10.8)
[2020-07-25 06:36] LABS: Anion Gap 14 mmol/L (10-20); BUN (Urea Nitrogen) 18 mg/dL (9.8-20.1); Calc. Creatinine Clearance 96 mL/min (70-130); Calcium 8.5 mg/dL (7.8-10.44); Carbon Dioxide 22 mmol/L (23-31); Chloride 109 mmol/L (98-107); Estimated GFR-MDRD Greater than 90; Glucose 103 mg/dL (80-115); Potassium 3.9 mmol/L (3.5-5.1); Sodium 141 mmol/L (136-145)
[2020-07-25] MEDS: Budesonide 0.5 MG/2 ML NEB NEB SCH ×2 (07:28→19:15)
--- NOTE | 2020-07-25 07:56 | ULT ---
RIGHT UPPER QUADRANT ULTRASOUND: HISTORY: Epigastric pain, nausea and vomiting, bloating. FINDINGS: Liver echogenicity is somewhat heterogeneous, evidence for fatty change or other diffuse hepatic pare nchymal process. The gallbladder demonstrates no evidence of gallstones or gallbladder wall edema or pericholecystic fluid. Common bile duct 0.3 cm. Visualized pancreas and right kidney are unremarka ble. No right upper quadrant fluid collection. IMPRESSION: Coarse liver echogenicity. No evidence of gallstones or ducal dilatation. POS: RRE
[2020-07-25] MEDS ORDERED: Benzonatate 100 MG CAP PO PRN ×2 (08:21→08:22)
--- NOTE | 2020-07-25 10:10 | RAD ---
Radiograph abdomen one view: 07/25/2020 HISTORY: Follow enteric contrast media in 70-year-old female COMPARISON: 07/24/2020 FINDINGS: There continues to be enteric contrast material throughout the entire colon, but the volume has decre ased. The contrast fills a normal appendix. There is a large number of diverticula throughout the descending colon, and numerous diverticula in the transverse and ascending colon. There is no small b owel dilation. Bowel gas pattern is normal. IMPRESSION: 1.) There continues to be enteric contrast material throughout the colon, although the volume has dec reased since yesterday. 2.) Extensive colonic diverticulosis
[2020-07-25] MEDS: Potassium Chloride 20 MEQ TAB PO SCH ×3 (10:19→21:11)
[2020-07-25] MEDS: Aspirin Chewable 81 MG TAB PO SCH ×2 (10:19→10:28)
[2020-07-25] MEDS: Carvedilol 6.25 MG TAB PO SCH ×3 (10:20→21:11)
[2020-07-25] MEDS: Acetaminophen 325 MG TAB PO SCH ×2 (10:20→12:07)
[2020-07-25] MEDS: Montelukast Sodium 10 mg Tablet PO SCH ×2 (10:20→10:29)
[2020-07-25] MEDS: Topiramate 25 MG TAB PO SCH ×3 (10:21→21:11)
[2020-07-25] MEDS: Pregabalin 50 MG CAP PO SCH ×3 (10:22→21:10)
[2020-07-25] MEDS: Terazosin HCl 5 MG CAP PO SCH ×2 (10:23→10:29)
[2020-07-25] MEDS: Lisinopril 2.5 MG TAB PO SCH ×2 (10:23→10:28)
[2020-07-25] MEDS: Cyclobenzaprine 10 MG TAB PO SCH ×5 (10:24→21:10)
[2020-07-25] MEDS: Trospium 20 MG TAB PO SCH ×3 (10:24→21:11)
[2020-07-25] MEDS: Furosemide 40 MG TAB PO SCH ×3 (10:24→13:56)
[2020-07-25] MEDS: Insulin Glargine 15 UNITS in Pre-Filled Syringe 1 EACH SC SCH (10:24)
[2020-07-25] MEDS ORDERED: Acetaminophen 325 MG TAB PO PRN (14:45)
[2020-07-25] MEDS ORDERED: GoLYTELY 4,000 ml Bottle PO SCH (14:45)
[2020-07-25] MEDS: Magnesium Citrate 300 ML BOT PO SCH ×2 (16:38→21:09)
--- NOTE | 2020-07-25 16:46 | PRG ---
DATE OF SERVICE: 07/25/2020 SUBJECTIVE: Ms. Nava is resting in bed. She states that she had to catch her breathing. She tries to take a deep breath and developed a bit of a cough. She denies heartburn. She denies any chest pain. She denies any regurgitation. She denies any vomiting. She had some bowel movements yesterday when she was given laxative after x-ray showed routine barium in her GI tract, precluding her repeat CAT scan. She had an ultrasound done today, that showed no stones or sludge or polyps or gallbladder. X-ray today again showed quite a bit of contrast, precluding repeat CT. PHYSICAL EXAMINATION: VITAL SIGNS: Temperature 97.7, pulse 63, blood pressure is 145/78. ABDOMEN: Soft and nontender. There is no rebound. There is no guarding. She has obese abdomen. EXTREMITIES: Mild edema. LABORATORY DATA: White count 4.6, hemoglobin 13, and platelet count 271. Sodium 141, potassium 3.9, BUN and creatinine are 18 and 0.7 on 07/23. Liver function tests were normal with an albumin of 3.7. Lipase of 14. EGD showed retained gastric contents, very similar to previous EGD. ASSESSMENT: Suspected gastroparesis of unclear etiology. She has a low MCV, although it has been as high as 11 or 12 back in 2012 to 15. It has been good in the last 2 years. Other etiologies that cause pain and gastroparesis be pancreatic malignancy and therefore she needs a CAT scan of the abdomen and pelvis, although she does not have a CAT scan of abdomen and pelvis except for back in 2018. RECOMMENDATIONS: 1. Would minimize Flexeril as this could cause gastroparesis. We will continue Protonix orally. Would minimize Ultram as this can cause gastroparesis as well. 2. Would go ahead and give her some magnesium citrate to see if that will help clear up the bowels. Repeat a KUB in the morning. If stable, get a CAT scan tomorrow. Job ID: [id number]
[2020-07-25] MEDS: Atorvastatin Calcium 10 MG TAB PO SCH (21:11)
[2020-07-26] MEDS: Benzonatate 100 MG CAP PO PRN ×3 (01:18→18:38)
[2020-07-26] MEDS: Budesonide 0.5 MG/2 ML NEB NEB SCH ×2 (06:49→18:11)
[2020-07-26] MEDS: Carvedilol 6.25 MG TAB PO SCH ×2 (09:23→20:14)
[2020-07-26] MEDS: Potassium Chloride 20 MEQ TAB PO SCH ×2 (09:23→20:13)
[2020-07-26] MEDS: Aspirin Chewable 81 MG TAB PO SCH (09:23)
[2020-07-26] MEDS: Pregabalin 50 MG CAP PO SCH ×2 (09:23→20:13)
[2020-07-26] MEDS: Terazosin HCl 5 MG CAP PO SCH (09:23)
[2020-07-26] MEDS: Montelukast Sodium 10 mg Tablet PO SCH (09:23)
[2020-07-26] MEDS: Furosemide 40 MG TAB PO SCH ×3 (09:24→14:46)
[2020-07-26] MEDS: Lisinopril 2.5 MG TAB PO SCH (09:24)
[2020-07-26] MEDS: Topiramate 25 MG TAB PO SCH ×2 (09:31→20:19)
[2020-07-26] MEDS: Insulin Glargine 15 UNITS in Pre-Filled Syringe 1 EACH SC SCH (09:38)
--- NOTE | 2020-07-26 09:46 | RAD ---
ABDOMEN 1 VIEW: HISTORY: Evaluate for barium clearance. COMPARISON: Radiograph of prior day. FINDINGS: The majority of the barium has been cleared from the colon with flocculent foci of small volume bariu m scattered throughout the colon and within diverticulum and the appendix. IMPRESSION: Majority of the barium contrast has transited through the colon and is likely enough clearance for an abdominal CT. POS: [facility]
--- NOTE | 2020-07-26 09:47 | RAD ---
PA AND LATERAL VIEWS CHEST: HISTORY: Cough. FINDINGS: Comparison is made to the exam of 07/20/2020. There is continued elevation of the right hemidiaphragm with minimal adjacent scarring. The heart size is normal. The aorta is tortuous. No lobar consolidation, pneumothoraces, or pleural effusions are seen. There are degenerative changes in the spine. IMPRESSION: No radiographic evidence of acute cardiopulmonary process. POS: OFF
[2020-07-26] MEDS: Trospium 20 MG TAB PO SCH ×2 (10:52→20:19)
[2020-07-26] MEDS ORDERED: Iopamidol-370 76% 500 ML 1 ML ONE (13:27)
--- NOTE | 2020-07-26 14:20 | CT ---
EXAM: CT Abdomen W WO Con PROVIDED CLINICAL HISTORY: Epigastric abdominal pain. Gallbladder polyp. History of gastroparesis. Evaluate for pancreatic malig luna. COMPARISON: Noncontrast CT abdomen on 12/02/2017, as well as CT scan of the abdomen on 01/21/2016 and 02/09/2007. FINDINGS: Trace pericardial effusion versus pericardial thickening is present. Minimal linear atelectasis versu s scarring is present at each lung base. Vascular calcifications in the coronary arteries, lower thoracic aorta as well as involving the abdom inal aorta and visualized iliac arteries. There is irregular nodular thickening involving each adrenal gland, but this is a stable finding dati ng back to studies in 2006. Nonobstructing 2 to 3 mm calculi are seen in the superior and inferior pole right kidney. Previously seen hydronephrosis right kidney on study in 2017 has resolved. No hydronephrosis is present on the current exam. A tiny subcentimeter low-density focus seen in the posterior aspect posterior segment right hepatic l obe with adjacent focus of peripheral enhancement. This could represent a very tiny subcentimeter hemangioma. The pancreas and spleen demonstrate a normal CT appearance. No pancreatic mass is visuali zed. There is no intra or extrahepatic biliary ductal dilatation. The portal vein is patent Colonic diverticulosis is present. Loops of small bowel are normal in caliber. The appendix is normal in caliber. No free fluid, fluid collection, or lymphadenopathy is seen in the abdomen. Multilevel degenerative changes are seen involving the lower thoracic as well as involving the lumbar spine. There is slight retrolisthesis of L1 on L2. IMPRESSION: 1. No acute findings in the abdomen. 2. Stable irregular nodular thickening involving each adrenal gland. This is unchanged dating back to studies in 2006 3. Nonobstructing right renal calculi. 4. Colonic diverticulosis. 5. Vascular calcifications.
[2020-07-26] MEDS: Atorvastatin Calcium 10 MG TAB PO SCH (20:14)
[2020-07-26] MEDS: Polyethylene Glycol 3350 17 GM Packet PO SCH (20:20)
--- NOTE | 2020-07-26 21:28 | PRG ---
DATE OF SERVICE: 07/26/2020 REASON FOR CONSULTATION: Abdominal pain, gastroparesis. SUBJECTIVE: The patient states that despite drinking GoLYTELY the day before yesterday as well as magnesium citrate x2 yesterday she has only had two semi-solid/liquid bowel movements over the last 24 hours. She also does continue to have moderate midepigastric/periumbilical abdominal pain, but adds that it may be improved a little bit from previous. Otherwise, she denies any further episodes of vomiting, fevers, chills, hematemesis, melena, hematochezia, dysphagia, odynophagia. OBJECTIVE: VITAL SIGNS: Temperature 97.6, pulse 77, blood pressure 90/58, respiratory rate 20, saturating 93% on room air. GENERAL: The patient is lying in bed, in no acute distress. Alert and oriented x4. CARDIOVASCULAR: Regular rate and rhythm. RESPIRATORY: Clear to auscultation bilaterally. ABDOMEN: Normoactive bowel sounds. Soft. Mild abdominal distention/obese abdomen. Tenderness to palpation in the midepigastric and periumbilical regions. EXTREMITIES: Trace/1+ bilateral lower extremity edema extending to mid lion. LABORATORY DATA: No current studies are available for review. IMAGING DATA: Right upper quadrant ultrasound was obtained on July 25, 2020, which showed heterogeneous liver echogenicity consistent with fatty change or other diffuse hepatic parenchymal process. There was no evidence of gallstones, gallbladder wall edema, or pericholecystic fluid with the common bile duct measuring [address] of the abdomen and pelvis was obtained on July 26, 2020, which showed a tiny subcentimeter low-density focus within the right hepatic lobe consistent with a tiny hemangioma. Otherwise, the liver, pancreas, and spleen appeared fairly normal with no evidence of pancreatic mass. There was no evidence of intra or extrahepatic biliary ductal dilatation. Colonic diverticulosis was present with no abnormality seen within the small bowel or at the appendix. Multilevel degenerative changes were seen in the lower thoracic spine with slight retrolisthesis on L1 over L2. Finally, a stable irregular nodularity was seen involving each adrenal gland, but unchanged when compared active studies in 2007. ASSESSMENT AND PLAN: The patient is a 70-year-old female with past medical history of diabetes, COPD, asthma, hyperlipidemia, and chronic back pain, presenting with chronic periumbilical abdominal pain, nausea, and constipation. Abdominal pain/nausea. The patient is presenting with a chronic history of increased abdominal pain that has been evaluated as an outpatient by Dr. Mckay with imaging thus far including a HIDA scan, CT of the abdomen and pelvis, and upper GI series negative for overt abnormalities. However, she did have an EGD during this admission with retained solid food within the gastric body concerning for the presence of gastroparesis. However, prior EGD on October 30, 2017, did not show any retained foods and rather showed normal findings within the esophagus, stomach, and the proximal small intestines. On chart review, the patient has not formally had a gastric emptying study confirming the diagnosis of gastroparesis. Also given her well-controlled diabetes, gastroparesis is possible, but less likely in terms of causing her abdominal pain at this time. However, during this hospitalization, she has exhibited significant constipation characterized by the consumption of 4 L of GoLYTELY in addition to two bottles of magnesium citrate resulting in only two bowel movements during the course of this admission. Upon review of the patient's CT scan from earlier today, she does have a significant amount of retained stool within the colon in addition to a significantly dilated stomach with contrast. At this time, the etiology of her abdominal pain is unclear, but could include gastroparesis, chronic constipation, GERD, dysautonomia of the enteric nervous system. Recommendations: 1. We would recommend smaller more frequent meals throughout the day with a possible liquid lunch in order to allow for adequate emptying of the gastric contents. We will avoid any medications that can potentially alter intestinal motility. 2. Pain control per primary team, but would recommend administration of acetaminophen over narcotics. 3. We will consider placing the patient on metoclopramide 10 mg t.i.d. in liquid formulation for possible gastroparesis, but would need to check an EKG first and her QTc prior to starting this medication. 4. We would consider obtaining a gastric empty study during this admission for confirmation of the diagnosis of gastroparesis, but the patient will need to be off all narcotics for 48 hours prior to obtaining the study. 5. We would continue liquid diet for now. 6. Treatment of constipation as outlined below. Constipation: The patient is presenting with significant constipation as an outpatient, require Linzess as part of her bowel regimen in order to have one bowel movement every other day. During the course of this admission, she has had approximately two bottles of magnesium citrate in addition to 4 L of GoLYTELY only resulting in approximately 2 to 3 liquid bowel movements over the span of 24 hours and while she has had multiple contrast studies which can sometimes generate constipation that seems an unlikely explanation for her significant constipation. Recommendations: 1. We would restart the patient on Linzess 290 mcg daily in addition to MiraLAX 1 capsule twice daily. 2. Continue to minimize any narcotic medications as it can delay colonic motility and increase constipation. 3. Continue strict glycemic control. We will continue to follow. Please call with any questions. Job ID: [id number]
[2020-07-27] MEDS: Benzonatate 100 MG CAP PO PRN ×3 (00:24→20:14)
[2020-07-27 05:59] LABS: #Eosinphils 0.2 thou/uL (0.0-0.7); #Lymphocytes 1.7 thou/uL (1.20-3.40); #Monocytes 0.4 thou/uL (0.11-0.59); %Basophils 0.6 % (0.0-1.0); %Eosinophils 4.6 % (0.0-10.0); %Lymphocytes 39.7 % (21.0-51.0); %Monocytes 9.5 % (0.0-10.0); %Neutrophils 45.6 % (42.0-75.0); Hemoglobin 13.2 g/dL (12.0-16.0); Mean Corpuscular HGB CONC 29.8 g/dL (32.0-36.0); Mean Corpuscular Hemoglobin 26.9 pg (27.0-31.0); Mean Corpuscular Volume 90.3 fL (78.0-98.0); Mean Platelet Volume 7.5 fL (7.4-10.4); Platelet Count 284 thou/uL (130-400); RBC Distribution Width 13.1 % (11.5-14.5); White Blood Cell (WBC) Count 4.3 thou/uL (4.8-10.8)
[2020-07-27 06:07] LABS: Anion Gap 13 mmol/L (10-20); BUN (Urea Nitrogen) 13 mg/dL (9.8-20.1); Calc. Creatinine Clearance 95 mL/min (70-130); Calcium 8.6 mg/dL (7.8-10.44); Carbon Dioxide 25 mmol/L (23-31); Chloride 107 mmol/L (98-107); Estimated GFR-MDRD Greater than 90; Glucose 102 mg/dL (80-115); Potassium 4.5 mmol/L (3.5-5.1); Sodium 140 mmol/L (136-145)
[2020-07-27] MEDS: Budesonide 0.5 MG/2 ML NEB NEB SCH ×2 (06:25→18:50)
[2020-07-27] MEDS: methylPREDNISolone Sod Succ 40 MG VIAL IVP SCH ×3 (09:01→20:15)
[2020-07-27] MEDS: Furosemide 40 MG TAB PO SCH ×2 (12:14→15:32)
[2020-07-27] MEDS: Insulin Glargine 15 UNITS in Pre-Filled Syringe 1 EACH SC SCH (12:14)
--- NOTE | 2020-07-27 15:15 | NM ---
RADIONUCLIDE GASTRIC EMPTYING SCAN: HISTORY: Gastroparesis RADIOPHARMACEUTICAL: 2 mCi technetium 99m sulfur colloid administered orally in scrambled eggs. FINDINGS: Gastric emptying at different times is as follows: 1 hour: 19% 2 hours: 55% 3 hours: 91% 4 hours: 99% The calculated gastric emptying half-time [id number]. IMPRESSION: Normal exam
[2020-07-27] MEDS: Terazosin HCl 5 MG CAP PO SCH (15:24)
[2020-07-27] MEDS: Lubiprostone 24 MCG CAP PO SCH (15:24)
[2020-07-27] MEDS: Pregabalin 50 MG CAP PO SCH ×2 (15:25→20:15)
[2020-07-27] MEDS: Aspirin Chewable 81 MG TAB PO SCH (15:25)
[2020-07-27] MEDS: Lisinopril 2.5 MG TAB PO SCH (15:27)
[2020-07-27] MEDS: Topiramate 25 MG TAB PO SCH ×2 (15:29→20:15)
[2020-07-27] MEDS: Carvedilol 6.25 MG TAB PO SCH ×2 (15:29→20:14)
[2020-07-27] MEDS: Montelukast Sodium 10 mg Tablet PO SCH (15:30)
[2020-07-27] MEDS: Polyethylene Glycol 3350 17 GM Packet PO SCH ×2 (15:31→20:14)
[2020-07-27] MEDS: Potassium Chloride 20 MEQ TAB PO SCH ×2 (15:31→20:15)
[2020-07-27] MEDS: Trospium 20 MG TAB PO SCH ×2 (15:32→20:14)
--- NOTE | 2020-07-27 17:57 | PRG ---
DATE OF SERVICE: 07/27/2020 REASON FOR CONSULTATION: Abdominal pain, nausea/vomiting. SUBJECTIVE: Overnight, the patient did not have any acute events or problems. She states that today she did not have any bowel movements, but did have a bowel movement yesterday. She does continue to have mild to moderate midepigastric abdominal pain, but states that it is improved from even yesterday. She further denies any episodes of nausea, vomiting, fevers, chills, hematemesis, melena, hematochezia, dysphagia, or odynophagia. OBJECTIVE: VITAL SIGNS: Temperature 98.4, pulse 95, blood pressure 133/85, respiratory rate 20, saturating 96% on room air. GENERAL: The patient was lying in bed, in no acute distress. Alert and oriented x4. CARDIOVASCULAR: Regular rate and rhythm. RESPIRATORY: Clear to auscultation bilaterally. ABDOMEN: Normoactive bowel sounds. Soft, protuberant/obese abdomen, mildly tender to palpation in the midepigastric region. EXTREMITIES: Trace/1+ bilateral lower extremity edema, extending to mid lion on both sides. LABORATORY DATA: CBC with a white blood cell count of 4.3, hemoglobin 13.2, hematocrit 44.2, platelets 284. Chemistry with a sodium of 140, potassium 4.5, chloride 107, CO2 of 25, BUN 13, creatinine 0.74, glucose 102. IMAGING DATA: A gastric emptying study was obtained on July 27, 2020, which showed 99% passage of the tracer at 4 hours, indicative of a normal gastric emptying. ASSESSMENT AND PLAN: The patient is a 70-year-old female with past medical history of diabetes, chronic obstructive pulmonary disease, asthma, hyperlipidemia, and chronic back pain, presenting with chronic periumbilical/midepigastric abdominal pain, nausea, and constipation. Abdominal pain/nausea: The patient initially presented with a chronic history of increased abdominal pain that has been evaluated as an outpatient by Dr. Mckay with imaging so far negative for overt abnormalities, now presenting with a gastric emptying study that is not indicative of gastroparesis. However, she did have an EGD during this admission with retained solid food within the gastric body, concerning for delayed gastric emptying. With more aggressive treatment of her acid reflux and with this patient maintaining more strict anti-reflux precautions, she is slowly having improvement in her symptoms in addition to having bowel movements, which could also contribute to improvement in her abdominal pain. At this time, the etiology of her abdominal pain is unclear, but could include chronic constipation, gastroesophageal reflux disease, or dysautonomia of the enteric nervous system (less likely). Recommendations: 1. We would continue to adhere to smaller more frequent meals throughout the day with a liquid lunch to allow for adequate emptying of the gastric contents. 2. Pain control per primary team, but we would attempt to avoid narcotics. 3. Given lack of evidence of gastroparesis on gastric emptying study, metoclopramide is not indicated at this time. 4. We would advance the patient's diet as tolerated. 5. Continue treatment of constipation as outlined below. Constipation: The patient is presenting with a history of longstanding constipation as an outpatient requiring the use of Linzess as part of her bowel regimen in order to have a bowel movement everyday. During this admission, she has had approximately 4 L of GoLYTELY and two bottles of magnesium citrate, resulting in only 2 to 3 liquid bowel movements over the span of 24 hours, although they were primarily liquid in consistency and large volume of that, per review of her imaging obtained during this admission, she did still have a fair amount of retained stool within the colon, which could be contributing to continued constipation as well as her abdominal pain. I would like to restart her on her outpatient Linzess, but unfortunately it is not on the formulary here. Recommendations: 1. I will start the patient on lubiprostone 24 mcg daily as a substitute for Linzess until the patient is discharged and can restart her Linzess. 2. Attempt to minimize any narcotic medications as it can delay colonic motility and increased constipation. 3. Continue strict glycemic control. 4. Continue MiraLAX 17 g twice daily. 5. We would attempt to increase the patient's diet to a more higher fiber diet prior to discharge. We will continue to follow. Please call with any questions. Job ID: [id number]
[2020-07-27] MEDS: Atorvastatin Calcium 10 MG TAB PO SCH (20:14)
[2020-07-28] MEDS: Benzonatate 100 MG CAP PO PRN (00:41)
[2020-07-28] MEDS: methylPREDNISolone Sod Succ 40 MG VIAL IVP SCH ×3 (04:02→14:37)
[2020-07-28] MEDS: Budesonide 0.5 MG/2 ML NEB NEB SCH (07:08)
[2020-07-28] MEDS: Insulin Glargine 15 UNITS in Pre-Filled Syringe 1 EACH SC SCH (08:30)
[2020-07-28] MEDS: Topiramate 25 MG TAB PO SCH (08:31)
[2020-07-28] MEDS: Furosemide 40 MG TAB PO SCH ×2 (08:31→14:37)
[2020-07-28] MEDS: Aspirin Chewable 81 MG TAB PO SCH (08:31)
[2020-07-28] MEDS: Trospium 20 MG TAB PO SCH (08:31)
[2020-07-28] MEDS: Terazosin HCl 5 MG CAP PO SCH (08:31)
[2020-07-28] MEDS: Potassium Chloride 20 MEQ TAB PO SCH (08:31)
[2020-07-28] MEDS: Pregabalin 50 MG CAP PO SCH (08:32)
[2020-07-28] MEDS: Lubiprostone 24 MCG CAP PO SCH (08:33)
[2020-07-28] MEDS: Montelukast Sodium 10 mg Tablet PO SCH (08:33)
[2020-07-28] MEDS: Polyethylene Glycol 3350 17 GM Packet PO SCH (08:33)
[2020-07-28] MEDS: Lisinopril 2.5 MG TAB PO SCH (08:34)
[2020-07-28] MEDS: Carvedilol 6.25 MG TAB PO SCH (09:19)
--- NOTE | 2020-07-28 13:11 | RAD ---
PORTABLE CHEST 1 VIEW: DATE: 07/28/2020. TIME: 11:51 AM. HISTORY: Shortness of breath and cough. COMPARISON: 07/26/2020. FINDINGS: There is continued elevation of the right hemidiaphragm with minimal adjacent scarring. The heart si ze is normal. The aorta is tortuous. No focal areas of consolidation, pneumothoraces, or pleural ef fusions are seen. IMPRESSION: No acute process. POS: OFF
[2020-07-28 14:37] LABS: Actual Bicarbonate (HCO3a) 17.4 mEq/L (22-28); Base Excess (BEa) -5.8 mEq/L (-2.0 to +3.0); CO2 Tension 28.2 mmHg (35.0-45.0); Calcium, Ionized (arterial) 1.22 mmol/L (1.12-1.30); Carboxyhemoglobin (COHb) 0.6 gm% (0.0-3.0); Hemoglobin (Hb) 13.9 g/dL (12.0-16.0); O2 Tension (PaO2), arterial 69.4 mmHg (> 70.0); Potassium - ABG Lab 4.78 mmol/L (3.70-5.30); pH, Arterial 7.41 (7.35-7.45)
[2020-07-28 14:38] LABS: Puncture Site RRA
[2020-07-28 16:47] VITALS: BP 101/69; TEMP 98.5
--- NOTE | 2020-07-28 16:54 | PRG ---
DATE OF SERVICE: 07/28/2020 REASON FOR CONSULTATION: Abdominal pain, nausea/vomiting. SUBJECTIVE: Overnight, the patient continued to have some increased shortness of breath and difficulty breathing. She states that she uses a CPAP machine at home, but has not been able to use that here. Today, she states that she continues to have the shortness of breath and wheezing despite treatment with nebulizer treatments. Otherwise, she states that her abdominal pain, nausea, and vomiting have completely resolved. OBJECTIVE: VITAL SIGNS: Temperature 97.7, pulse 114, blood pressure 100/61, respiratory rate 22, saturating 99% on room air. GENERAL: The patient is lying in bed, in no acute distress. Alert and oriented x4. No conversational dyspnea. CARDIOVASCULAR: Regular rate and rhythm. RESPIRATORY: Clear to auscultation bilaterally. ABDOMEN: Normoactive bowel sounds. Soft, protuberant/obese abdomen. No tenderness to palpation. EXTREMITIES: Trace bilateral lower extremity edema extending to mid lion. LABORATORY DATA: No current studies are available for review. IMAGING DATA: No current studies are available for review. ASSESSMENT AND PLAN: The patient is a 70-year-old female with past medical history of diabetes, chronic obstructive pulmonary disease, asthma, hyperlipidemia, and chronic back pain, presenting with chronic periumbilical/midepigastric abdominal pain, nausea, vomiting, most likely secondary to constipation. Abdominal pain/nausea. The patient is presenting with a chronic history of abdominal pain that had undergone extensive workup as an outpatient by Dr. Mckay. During this admission, the patient had a gastric emptying study that was not indicative of gastroparesis. With placing the patient with more aggressive treatment of her acid reflux, maintaining more strict anti-reflux precautions and treating her constipation, her nausea/vomiting and abdominal pain have completely resolved. Recommendations, 1. Continue smaller more frequent meals throughout the day. 2. Advance diet as tolerated. 3. Continue treatment of constipation as below. 4. Continue PPI administration and strict antireflux precautions. Constipation. The patient is presenting with a longstanding history of constipation requiring the use of Linzess as an outpatient in order to have a bowel movement. During the course of this administration, she had 4 L of GoLYTELY, two bottles of magnesium citrate in addition to lubiprostone and MiraLAX with only minimal bowel movements over the last 24 to 48 hours. However, with continued bowel movements during this time period, she has had complete resolution of her abdominal pain as well. Recommendations, 1. Would keep the patient on lubiprostone 24 mcg daily while inpatient. On discharge, I would restart her Linzess. 2. Attempt to minimize any narcotic medications or medications that can delay colonic motility. 3. Continue strict glycemic control. 4. Continue MiraLAX 17 g twice daily. 5. Would have the patient advance her diet to a higher fiber diet on discharge. Given complete resolution of her abdominal pain, nausea and vomiting, we will sign off at this time. Would recommend conferring with the patient's primary care doctor for treatment as part of continued shortness of breath and wheezing on physical exam today. Please call with any questions. Job ID: [id number]
--- NOTE | 2020-07-29 18:52 | DIS ---
DATE OF ADMISSION: 07/23/2020 DATE OF DISCHARGE: 07/28/2020 CHIEF COMPLAINT ON ADMISSION: Chest pain. History and physical had previously been dictated. I will resume from there. HOSPITAL COURSE: The patient was placed originally in a telemetry bed, where cardiac enzymes were run overnight. Her symptomatology sounds completely GI and then her troponins returned negative, consultation with GI was then sought. Dr. Sb Brewer saw her originally and felt that her upper epigastric pain had multiple etiologies, so he ordered an EGD for the following Thursday. In the meantime, in addition to her echocardiogram which was obtained on 07/22/2020, she had an echocardiogram done, which showed an ejection fraction of 60% to 65% with 1/3 diastolic dysfunction. There was some septal bounce consistent with bundle-branch block. Also, she had an upper GI performed, this was done on 07/22, which showed no hiatal hernia. No evidence of esophageal dysmotility or tertiary contractions. She did have moderate reflux during intermittent fluoroscopy. This may be the etiology of her chest pain that being esophageal spasm secondary to reflux. On 07/23, Dr. Brewer did an EGD, which showed mild to moderate retained vegetable matter in the fundus of the stomach consistent with possibly gastroparesis. Otherwise, normal EGD. A CT of the abdomen was then sought, but due to retained GI x-ray material, this was not able to be obtained until 07/26. Prior to then, an abdominal ultrasound was also done on 07/25 because there was a history of a gallbladder polyp in the past. On this particular echo of the abdomen, there was some coarse liver echogenicity, but no evidence of gallstones or ductal dilatation. She had a CT of the abdomen on 07/26, which showed no acute findings in the abdomen and irregular thickening involving the adrenal glands, but this was unchanged for the last 13 years and nonobstructing right renal calculi, colonic diverticulosis and vascular calcifications. Dr. Renae was covering from a GI standpoint at this time, and he thought a gastric emptying scan would show a degree of gastroparesis present. This was performed on 07/27 and returned normal as well. During the hospitalization, the patient had an exacerbation of her asthma and COPD. It was aggressively treated by increasing her nebs and even placed her on scheduled IV steroids. However, the patient felt this was not helpful. She continued to cough significantly. Finally, on the day of discharge, after indeterminate D-dimer and negative ABG, it was noted that the patient's lisinopril was probably causing her cough. Repeat chest x-rays have returned normal. At this point, the patient was able to finally be discharged home. It is notable that during this hospitalization, she did not mention that she had missed or was not wearing her CPAP until the last day. The patient is discharged in stable condition. She has no longer had any chest pain. It has been clarified that she does not have gastroparesis when the narcotics were held and she will have an adverse reaction to EN, i.e., cough. The patient is discharged in stable condition. She will follow up with Dr. Tanner in 1 week. DIAGNOSES AT THE TIME OF DISCHARGE: 1. Chest pain-atypical, probably gastroesophageal reflux with esophageal spasm. 2. Adverse reaction to lisinopril-cough. 3. Insulin-dependent diabetes, stable. 4. Asthma/COPD, also stable. 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 Job ID: [id number]
--- NOTE | 2020-08-01 20:12 | EKG ---
Test Reason : Blood Pressure : / mmHG Vent. Rate : 095 BPM Atrial Rate : 095 BPM P-R Int : 180 ms QRS Dur : 134 ms QT Int : 412 ms P-R-T Axes : 014 234 -06 degrees QTc Int : 517 ms Normal sinus rhythm Right bundle branch block Lateral infarct , age undetermined Abnormal ECG When compared with ECG of 20-JUL-2020 18:24, (Unconfirmed) Vent. rate has increased BY 43 BPM Lateral infarct is now Present QT has lengthened Confirmed by DAVID BUNN, DR. Martinez ([id number]) on 08/01/2020 8:12:18 PM Referred By: Garfield PATRICK Confirmed By:DR. Michelle HERNANDEZ MD
== END 2020-07-28 17:39 | disposition home or self-care (01) | DRG 392 ==
LOC: ERS 18:14 → 2SW 21:51 → OBSVTOIN 07-23 10:53 → T4-A 07-23 15:07
PROVIDERS: ADMIT Specialist; ATTEND Specialist
PROC: 0DJ08ZZ Inspection of Upper Intestinal Tract, Via Natural or Artificial Opening Endoscopic (ICD-10-PCS; principal; 2020-07-23)
DX: K21.9 Gastro-esophageal reflux disease without esophagitis (principal); J44.1 Chronic obstructive pulmonary disease with (acute) exacerbation; J45.901 Unspecified asthma with (acute) exacerbation; K59.09 Other constipation; E78.5 Hyperlipidemia, unspecified; G89.29 Other chronic pain; M54.9 Dorsalgia, unspecified; N32.81 Overactive bladder; F32.9 Major depressive disorder, single episode, unspecified; E66.9 Obesity, unspecified; E87.6 Hypokalemia; E11.9 Type 2 diabetes mellitus without complications; K57.90 Diverticulosis of intestine, part unspecified, without perforation or abscess without bleeding; I25.10 Atherosclerotic heart disease of native coronary artery without angina pectoris; T46.4X5A Adverse effect of angiotensin-converting-enzyme inhibitors, initial encounter; Y92.239 Unspecified place in hospital as the place of occurrence of the external cause; Z98.42 Cataract extraction status, left eye; Z98.41 Cataract extraction status, right eye; Z98.890 Other specified postprocedural states; Z87.891 Personal history of nicotine dependence; Z88.6 Allergy status to analgesic agent; Z88.8 Allergy status to other drugs, medicaments and biological substances; Z79.899 Other long term (current) drug therapy; Z79.82 Long term (current) use of aspirin; Z79.51 Long term (current) use of inhaled steroids; Z68.33 Body mass index [BMI] 33.0-33.9, adult; Z79.4 Long term (current) use of insulin
CPT/HCPCS: 36415; 36416; 36600; 71045; 71046; 74018; 74170; 74246; 76705; 78264; 80048; 80053; 80076; 81001; 82533; 82785; 82805; 83036; 83690; 83880; 84443; 84484; 85025; 85379; 87635; 93005; 93010; 93306; 94640; A9541; G0378; J1815; J2704; J2920; J3010; J7620; J7626; Q9967; U0003

== ENCOUNTER 2020-12-12 11:17 | Outpatient (CLI) | payer MEDICARE, MEDICAID ==
--- NOTE | 2020-12-12 11:43 | RAD ---
Right hand 3 views HISTORY: Right hand injury. FINDINGS: There is widespread mild joint space narrowing, osteophytosis, and subchondral sclerosis, m ost pronounced at the first carpometacarpal joint, where mild lateral subluxation is also present. Well-corticated fragmentation of the ulnar styloid has the appearance of an old ununited fracture. A tiny old ununited ossific avulsion also lies immediately posterior to the distal interphalangeal joint of the middle finger. No acute fracture, dislocation, or aggressive osseous erosions. IMPRESSION : Osteoarthritis most pronounced at the first carpometacarpal joint. No acute osseous abnormalities are demonstrated.
== END 2020-12-12 11:18 | disposition home or self-care (01) ==
LOC: BICRAD 11:17
PROVIDERS: ATTEND Specialist
DX: S69.91XA Unspecified injury of right wrist, hand and finger(s), initial encounter (principal); M18.11 Unilateral primary osteoarthritis of first carpometacarpal joint, right hand

== ENCOUNTER 2021-02-18 01:35 | Emergency (ER) | payer MEDICARE, MEDICAID ==
[2021-02-18] MEDS ORDERED: Benzonatate 100 MG CAP ONE (04:51)
== END 2021-02-18 09:30 | disposition home or self-care (01) ==
LOC: ERS 01:35
DX: F10.129 Alcohol abuse with intoxication, unspecified (principal); J44.9 Chronic obstructive pulmonary disease, unspecified; E11.9 Type 2 diabetes mellitus without complications; E78.00 Pure hypercholesterolemia, unspecified; K21.9 Gastro-esophageal reflux disease without esophagitis; I10 Essential (primary) hypertension; Z87.891 Personal history of nicotine dependence; Y90.6 Blood alcohol level of 120-199 mg/100 ml
CPT/HCPCS: 36415; 71045; 80307; 94640; J7620

== ENCOUNTER 2021-04-04 07:39 | Emergency (ER) | payer MEDICARE, MEDICAID ==
[2021-04-04 07:58] LABS: #Basophils 0.1 thou/uL (0.0-0.2); #Eosinphils 0.3 thou/uL (0.0-0.7); #Lymphocytes 2.3 thou/uL (1.20-3.40); #Monocytes 0.5 thou/uL (0.11-0.59); #Neutrophils 2.3 thou/uL (1.40-6.50); %Eosinophils 5.2 % (0.0-10.0); %Lymphocytes 41.6 % (21.0-51.0); %Monocytes 8.5 % (0.0-10.0); %Neutrophils 42.7 % (42.0-75.0); Hemoglobin 13.9 g/dL (12.0-16.0); Mean Corpuscular HGB CONC 32.2 g/dL (32.0-36.0); Mean Corpuscular Hemoglobin 28.9 pg (27.0-31.0); Mean Corpuscular Volume 89.5 fL (78.0-98.0); Platelet Count 318 thou/uL (130-400); RBC Distribution Width 12.8 % (11.5-14.5); Red Blood Cell (RBC) Count 4.81 mill/uL (4.20-5.40); White Blood Cell (WBC) Count 5.4 thou/uL (4.8-10.8)
[2021-04-04] MEDS ORDERED: Mag-Al 1200 mg/1200 mg/30 ML UDCUP ONE (08:09)
[2021-04-04] MEDS ORDERED: Lidocaine Viscous Sol 2% 15 ml UD Cup ONE (08:09)
[2021-04-04 08:12] LABS: ALT (SGPT) 10 U/L (8-55); AST (SGOT) 14 U/L (5-34); Albumin 4.1 g/dL (3.4-4.8); Alkaline Phosphatase 63 U/L (40-110); Anion Gap 16 mmol/L (10-20); BUN (Urea Nitrogen) 17 mg/dL (9.8-20.1); Bilirubin, Total 0.7 mg/dL (0.2-1.2); Calc. Creatinine Clearance 0 mL/min (70-130); Calcium 9.4 mg/dL (7.8-10.44); Carbon Dioxide 27 mmol/L (23-31); Chloride 99 mmol/L (98-107); Globulin 2.8 g/dL (2.4-3.5); Glucose 125 mg/dL (83-110); Lipase 14 U/L (8-78); Potassium 3.9 mmol/L (3.5-5.1); Protein, Total 6.9 g/dL (5.8-8.1); Sodium 138 mmol/L (136-145)
== END 2021-04-04 12:05 | disposition home or self-care (01) ==
LOC: ERS 07:39
DX: R07.89 Other chest pain (principal); I45.10 Unspecified right bundle-branch block; R00.1 Bradycardia, unspecified; K21.9 Gastro-esophageal reflux disease without esophagitis; J45.909 Unspecified asthma, uncomplicated; E11.9 Type 2 diabetes mellitus without complications; E78.00 Pure hypercholesterolemia, unspecified; I10 Essential (primary) hypertension; J44.9 Chronic obstructive pulmonary disease, unspecified; Z87.891 Personal history of nicotine dependence; Z79.82 Long term (current) use of aspirin; Z79.899 Other long term (current) drug therapy
CPT/HCPCS: 36415; 36416; 71045; 80053; 83690; 84484; 85025; 93005

== ENCOUNTER 2021-04-05 13:55 | Outpatient (CLI) | payer MEDICARE, MEDICAID ==
[~2021-04-05 13:55] MED LIST: Iopamidol 370 76% 100 ML VIAL ONE
== END 2021-04-05 13:56 | disposition home or self-care (01) ==
LOC: BICCT 13:55
PROVIDERS: ATTEND Otolaryngology Plastic Surgery within the Head & Neck
DX: I72.9 Aneurysm of unspecified site (principal); I65.23 Occlusion and stenosis of bilateral carotid arteries; E04.1 Nontoxic single thyroid nodule
CPT/HCPCS: 70491; 70498; Q9967

== ENCOUNTER 2021-05-03 10:15 | Outpatient (CLI) | payer MEDICARE, MEDICAID ==
[2021-05-03 11:49] LABS: Hemoglobin 12.1 g/dL (12.0-15.5)
[2021-05-03 11:53] LABS: Anion Gap 18 mmol/L (10-20); BUN (Urea Nitrogen) 12 mg/dL (9.8-20.1); Calc. Creatinine Clearance 0 mL/min (70-130); Calcium 9.1 mg/dL (7.8-10.44); Carbon Dioxide 24 mmol/L (23-31); Chloride 106 mmol/L (98-107); Glucose 133 mg/dL (83-110); Potassium 4.1 mmol/L (3.5-5.1); Sodium 144 mmol/L (136-145)
[2021-05-03 18:52] LABS: SARS-CoV-2 PCR by NAA Not Detected (NotDetected)
== END 2021-05-03 10:16 | disposition home or self-care (01) ==
LOC: LABBT 10:15
PROVIDERS: ATTEND Otolaryngology Plastic Surgery within the Head & Neck
DX: Z01.812 Encounter for preprocedural laboratory examination (principal); E04.9 Nontoxic goiter, unspecified; Z20.822 Contact with and (suspected) exposure to COVID-19
CPT/HCPCS: 80048; 85014; 85018; 93005; U0003; U0005; 93010

== ENCOUNTER 2021-05-08 05:34 | Observation (INO) | payer MEDICARE, MEDICAID ==
[2021-05-07 10:11] VITALS: BMI 30.1
[2021-05-08] MEDS ORDERED: Bacitracin Zinc Ointment 30 gm TUBE ONE (08:38)
[2021-05-08] MEDS ORDERED: Midazolam HCl 2 mg/2 ml Vial ONE (08:38)
[2021-05-08] MEDS ORDERED: Lidocaine 1% w/Epinephrine 1:100K 20 ML VIAL ONE (08:38)
[2021-05-08] MEDS ORDERED: Fentanyl 100 MCG/2 ML VIAL ONE ×2 (08:38→11:22)
[2021-05-08] MEDS ORDERED: PROPOFOL 200 MG/20 ML VIAL ONE (08:53)
[2021-05-08] MEDS ORDERED: Ondansetron PF 4 MG/2 ML Vial ONE (08:53)
[2021-05-08] MEDS ORDERED: Dexamethasone 20 MG/5 ML VIAL ONE (08:53)
[2021-05-08] MEDS ORDERED: Lidocaine 1% PF 5 ML VIAL ONE (08:53)
[2021-05-08] MEDS ORDERED: Succinylcholine 200 MG/10 ml SYRINGE FS ONE (08:53)
[2021-05-08] MEDS ORDERED: Glycopyrrolate 0.2 MG/ML 5 ML SYRINGE ONE (08:53)
[2021-05-08] MEDS ORDERED: ePHEDrine Sulfate 50 MG/10 ML VIAL ONE (08:53)
[2021-05-08] MEDS ORDERED: Morphine 2 MG/ML VIAL SLOW IVP PRN (10:46)
[2021-05-08] MEDS ORDERED: Hydrocodone-Acetamin 15 ML UDCUP PO PRN (10:47)
[2021-05-08] MEDS ORDERED: Bacitracin 1 PK TOP PRN (10:49)
[2021-05-08] MEDS ORDERED: ceFAZolin 1 GM/D5W 1 GM in Premix Bag 1 BAG IVPB SCH (14:00)
[2021-05-08] MEDS ORDERED: Albuterol Sulfate 2.5 mg/3 ml Neb NEB PRN (14:16)
[2021-05-08] MEDS ORDERED: Cyclobenzaprine 10 MG TAB PO PRN (14:18)
[2021-05-08] MEDS ORDERED: Mometasone 100 MCG/Formoterol 5 MCG 120 PUFF INHALER INH PRN (14:19)
[2021-05-08] MEDS ORDERED: Fluticasone Propionate Nasal Spray 16 gm Bottle NASAL PRN (14:19)
[2021-05-08] MEDS ORDERED: HYDROcodone/Acetaminophen 7.5/325 mg Tablet PO PRN (14:22)
[2021-05-08] MEDS ORDERED: LINACLOTIDE 290 MCG PO PRN (14:23)
[2021-05-08] MEDS ORDERED: Ondansetron ODT 8 MG TAB PO PRN (14:24)
[2021-05-08] MEDS: tiZANidine HCl 4 MG TAB PO SCH ×2 (15:07→20:29)
[2021-05-08] MEDS: Sodium Chloride 0.45% 1,000 ML IV SCH ×3 (15:10→23:30)
[2021-05-08] MEDS: Azelastine 137 MCG/Spray 30 ML NS SCH (18:53)
[2021-05-08] MEDS: ceFAZolin 1 GM/D5W 1 GM in Premix Bag 1 BAG IVPB SCH (19:05)
[2021-05-08] MEDS: Mometasone 100 MCG/PUFF (1 INHALER) INH SCH (19:27)
[2021-05-08] MEDS: Pregabalin 50 MG CAP PO SCH (20:30)
[2021-05-08] MEDS: Carvedilol 25 MG TAB PO SCH (20:31)
[2021-05-08] MEDS: Trospium 20 MG TAB PO SCH (20:33)
[2021-05-08] MEDS ORDERED: Montelukast Sodium 10 mg Tablet PO SCH (21:00)
[2021-05-08] MEDS ORDERED: Rosuvastatin 20 MG TAB PO SCH (21:00)
[2021-05-08] MEDS ORDERED: Terazosin HCl 5 MG CAP PO SCH (21:00)
[2021-05-08] MEDS ORDERED: SUVOREXANT 15 MG PO SCH (21:00)
[2021-05-09] MEDS: ceFAZolin 1 GM/D5W 1 GM in Premix Bag 1 BAG IVPB SCH ×3 (00:18→17:59)
[2021-05-09] MEDS: Azelastine 137 MCG/Spray 30 ML NS SCH ×4 (00:18→17:59)
[2021-05-09] MEDS: Sodium Chloride 0.45% 1,000 ML IV SCH ×2 (06:32→14:56)
[2021-05-09] MEDS: Mometasone 100 MCG/PUFF (1 INHALER) INH SCH (08:22)
[2021-05-09] MEDS ORDERED: Calcium Carbonate 600 MG + Vit D TAB PO SCH (09:00)
[2021-05-09] MEDS ORDERED: Lantus 1000 UNITS/10 ML VIAL SC SCH (09:00)
[2021-05-09] MEDS ORDERED: Hydrochlorothiazide 25 MG TAB PO SCH (09:00)
[2021-05-09] MEDS ORDERED: Allopurinol 300 MG TAB PO SCH (09:00)
[2021-05-09] MEDS ORDERED: Potassium Chloride 10 MEQ TAB PO SCH (09:00)
[2021-05-09] MEDS: Pregabalin 50 MG CAP PO SCH (11:03)
[2021-05-09] MEDS: Carvedilol 25 MG TAB PO SCH (11:04)
[2021-05-09] MEDS: Furosemide 40 MG TAB PO SCH ×2 (11:05→13:36)
[2021-05-09] MEDS: tiZANidine HCl 4 MG TAB PO SCH ×2 (11:06→16:48)
[2021-05-09] MEDS: Trospium 20 MG TAB PO SCH (11:07)
[2021-05-09 15:37] VITALS: TEMP 97.4
[2021-05-09 17:53] VITALS: BP 132/85
== END 2021-05-09 18:10 | disposition home or self-care (01) ==
LOC: SDC 05:34 → SURG A 10:47
PROVIDERS: ADMIT Otolaryngology Plastic Surgery within the Head & Neck; ATTEND Otolaryngology Plastic Surgery within the Head & Neck
PROC: 0GTH0ZZ Resection of Right Thyroid Gland Lobe, Open Approach (ICD-10-PCS; principal; 2021-05-08)
DX: E04.2 Nontoxic multinodular goiter (principal); H93.A9 Pulsatile tinnitus, unspecified ear; I10 Essential (primary) hypertension; E78.00 Pure hypercholesterolemia, unspecified; E11.9 Type 2 diabetes mellitus without complications; G25.81 Restless legs syndrome; M19.90 Unspecified osteoarthritis, unspecified site; Z79.4 Long term (current) use of insulin; Z79.82 Long term (current) use of aspirin; Z79.899 Other long term (current) drug therapy; Z88.5 Allergy status to narcotic agent; Z88.8 Allergy status to other drugs, medicaments and biological substances; Z91.011 Allergy to milk products
CPT/HCPCS: 36416; 88307; 88311; 88331; 94640; 96365; 96376; G0378; J0690; J1100; J2250; J2405; J2704; J3010; J7620; Q0162

== ENCOUNTER 2022-01-16 10:38 | Outpatient (CLI) | payer MEDICAID, MEDICARE, OTHER | END 2022-01-16 10:39 | disposition home or self-care (01) | LOC: RAD 10:38 | PROVIDERS: ATTEND Internal Medicine Critical Care Medicine | DX: R06.00 Dyspnea, unspecified (principal) | CPT/HCPCS: 71046 ==

== ENCOUNTER 2022-02-28 09:58 | Outpatient (CLI) | payer MEDICARE, MEDICAID | END 2022-02-28 09:59 | disposition home or self-care (01) | LOC: BICRAD 09:58 | PROVIDERS: ATTEND Physician Assistant Medical | DX: K31.84 Gastroparesis (principal); K59.00 Constipation, unspecified; K21.9 Gastro-esophageal reflux disease without esophagitis | CPT/HCPCS: 74018 ==

== ENCOUNTER 2022-04-22 09:48 | Emergency (ER) | payer MEDICARE, OTHER | END 2022-04-22 11:44 | disposition home or self-care (01) | LOC: ERS 09:48 | DX: S40.021A Contusion of right upper arm, initial encounter (principal); J45.909 Unspecified asthma, uncomplicated; K21.9 Gastro-esophageal reflux disease without esophagitis; E11.9 Type 2 diabetes mellitus without complications; E78.00 Pure hypercholesterolemia, unspecified; I10 Essential (primary) hypertension; J44.9 Chronic obstructive pulmonary disease, unspecified; Z87.891 Personal history of nicotine dependence; X58.XXXA Exposure to other specified factors, initial encounter | CPT/HCPCS: 99283 ==

== ENCOUNTER 2022-05-03 01:36 | Emergency (ER) | payer MEDICARE, OTHER ==
[2022-05-03] MEDS ORDERED: Aspirin Chewable 81 MG TAB ONE (03:31)
[2022-05-03 03:42] LABS: #Basophils 0.1 thou/uL (0.0-0.2); #Eosinphils 0.5 thou/uL (0.0-0.7); #Lymphocytes 1.4 thou/uL (1.20-3.40); #Monocytes 0.4 thou/uL (0.11-0.59); #Neutrophils 3.8 thou/uL (1.40-6.50); %Basophils 1.1 % (0.0-1.0); %Eosinophils 8.4 % (0.0-10.0); %Lymphocytes 22.3 % (21.0-51.0); %Monocytes 6.9 % (0.0-10.0); %Neutrophils 61.3 % (42.0-75.0); Hemoglobin 14.4 g/dL (12.0-16.0); Mean Corpuscular Hemoglobin 29.9 pg (27.0-31.0); Mean Corpuscular Volume 93.3 fL (78.0-98.0); Mean Platelet Volume 6.8 fL (7.4-10.4); Platelet Count 244 thou/uL (130-400); RBC Distribution Width 13.5 % (11.5-14.5); Red Blood Cell (RBC) Count 4.83 mill/uL (4.20-5.40); White Blood Cell (WBC) Count 6.1 thou/uL (4.8-10.8)
[2022-05-03 04:09] LABS: ALT (SGPT) 30 U/L (8-55); AST (SGOT) 17 U/L (5-34); Albumin 4.2 g/dL (3.4-4.8); Alkaline Phosphatase 87 U/L (40-110); Anion Gap 14 mmol/L (10-20); BUN (Urea Nitrogen) 19 mg/dL (9.8-20.1); Bilirubin, Total 0.6 mg/dL (0.2-1.2); Calc. Creatinine Clearance 0 mL/min (70-130); Calcium 9.7 mg/dL (7.8-10.44); Carbon Dioxide 22 mmol/L (23-31); Chloride 108 mmol/L (98-107); Globulin 2.8 g/dL (2.4-3.5); Glucose 118 mg/dL (83-110); Potassium 4.5 mmol/L (3.5-5.1); Sodium 139 mmol/L (136-145)
[2022-05-03] MEDS ORDERED: HYDROcodone/Acetaminophen 5/325 mg Tablet ONE (04:46)
== END 2022-05-03 05:09 | disposition home or self-care (01) ==
LOC: ERS 01:36
DX: M79.18 Myalgia, other site (principal); K21.9 Gastro-esophageal reflux disease without esophagitis; E11.9 Type 2 diabetes mellitus without complications; E78.00 Pure hypercholesterolemia, unspecified; I10 Essential (primary) hypertension; Z87.891 Personal history of nicotine dependence; Z79.899 Other long term (current) drug therapy; Z79.82 Long term (current) use of aspirin; Z79.4 Long term (current) use of insulin
CPT/HCPCS: 36415; 71045; 80053; 84484; 85025; 93005

== ENCOUNTER 2022-08-07 10:44 | Outpatient (CLI) | payer OTHER | END 2022-08-07 10:45 | disposition home or self-care (01) | LOC: BICMAMMO 10:44 | PROVIDERS: ATTEND Specialist | DX: Z12.31 Encounter for screening mammogram for malignant neoplasm of breast (principal) | CPT/HCPCS: 77063; 77067 ==

== ENCOUNTER 2022-09-13 17:22 | Emergency (ER) | payer OTHER ==
[2022-09-13 18:17] LABS: #Eosinphils 0.1 thou/uL (0.0-0.7); #Lymphocytes 1.1 thou/uL (1.20-3.40); #Monocytes 0.4 thou/uL (0.11-0.59); %Basophils 0.7 % (0.0-1.0); %Eosinophils 2.3 % (0.0-10.0); %Lymphocytes 24.3 % (21.0-51.0); %Monocytes 7.9 % (0.0-10.0); %Neutrophils 64.9 % (42.0-75.0); Hemoglobin 12.5 g/dL (12.0-16.0); Mean Corpuscular HGB CONC 31.5 g/dL (32.0-36.0); Mean Corpuscular Hemoglobin 29.3 pg (27.0-31.0); Mean Corpuscular Volume 92.8 fL (78.0-98.0); Mean Platelet Volume 7.2 fL (7.4-10.4); Platelet Count 242 thou/uL (130-400); RBC Distribution Width 13.3 % (11.5-14.5); Red Blood Cell (RBC) Count 4.26 mill/uL (4.20-5.40); White Blood Cell (WBC) Count 4.6 thou/uL (4.8-10.8)
== END 2022-09-13 19:55 | disposition home or self-care (01) ==
LOC: ERS 17:22
DX: R04.0 Epistaxis (principal); K21.9 Gastro-esophageal reflux disease without esophagitis; E11.9 Type 2 diabetes mellitus without complications; Z79.4 Long term (current) use of insulin; E78.00 Pure hypercholesterolemia, unspecified; I10 Essential (primary) hypertension; J44.9 Chronic obstructive pulmonary disease, unspecified; Z87.891 Personal history of nicotine dependence; Z79.899 Other long term (current) drug therapy; Z79.82 Long term (current) use of aspirin
CPT/HCPCS: 36415; 85025; 99283